=== PATIENT | male | born 1945 | race Caucasian/White ===

== ENCOUNTER 2016-05-28 09:48 | Inpatient (IN) | payer OTHER, MEDICARE ==
[~2016-05-28] VITALS: Ht 213.4 cm; Wt 158.5 kg
[~2016-05-28 09:48] MED LIST: DOCU1CAP39 PO; FERR324T4 PO; LISI20 PO; METH10TA PO; NEUR600T PO; OXYC1SOL5 PO; WARF1TAB PO; WARF7.5T4 PO; ZOCO40TA PO
[2016-05-28 10:17] LABS: AUTOMATED NEUTROPHIL # 9.5 TH/MM3 (1.8-7.7); BASOPHIL % 0.2 % (0.0-2.0); EOSINOPHIL % 0.3 % (0.0-4.0); HEMATOCRIT 24.8 % (39.0-51.0); HEMO FLAGS DIFF FINAL; LYMPH % 7.5 % (9.0-44.0); LYMPHOCYTE # 0.9 TH/MM3 (1.0-4.8); MEAN CELL VOLUME 77.4 FL (80.0-100.0); MEAN CORPUSCULAR HEMOGLOBIN 25.4 PG (27.0-34.0); MEAN CORPUSCULAR HGB CONC 32.8 % (32.0-36.0); PLATELET COUNT 264 TH/MM3 (150-450); RED CELL DISTRIBUTION WIDTH 17.8 % (11.6-17.2); WHITE BLOOD COUNT 11.6 TH/MM3 (4.0-11.0)
[2016-05-28 10:31] LABS: BICARBONATE 32.2 MEQ/L (21.0-32.0); POTASSIUM 4.1 MEQ/L (3.5-5.1)
[2016-05-28] MEDS ORDERED: VANCOMYCIN INJ 1,000 MG in SODIUM CHLOR 0.9% 250 ML INJ 250 ML IV STA (10:54)
[2016-05-28] MEDS ORDERED: PIPERACIL-TAZO 4.5 GM PREMIX 100 ML IV STA (10:54)
--- NOTE | 2016-05-28 11:04 | PD ---
HPI Chief Complaint: Skin Problem Time Seen by Provider: 09:57 Travel History International Travel<30 days: No Contact w/Intl Traveler<30days: No History of Present Illness HPI Patient is a morbidly obese 70-year-old male with history of HTN, HLD, DM, A. fib here with complaint of skin problem. Patient is a poor historian. From what I can gather he has chronic venous stasis changes, chronic wounds to the legs that have been increasing over the course the last several weeks despite home health wound management. Patient has had increasing pain in the right lower extremity particularly, describes this as throbbing. He is unable to tell me how much larger the leg is then it is at baseline. Denies any numbness , tingling. He notes weakness in the right leg, stating that "it hurt so bad he can't move it". No fevers or chills. PFSH Past Medical History Hx Anticoagulant Therapy: Yes (COUMADIN) Arthritis: Yes Atrial Fibrillation: Yes Heart Rhythm Problems: Yes (A-FIB) Cancer: No Cardiovascular Problems: Yes High Cholesterol: Yes Diabetes: Yes Diminished Hearing: Yes (LEFT EAR DIMINISHED) Endocrine: Yes Gastrointestinal Disorders: Yes Genitourinary: No Hiatal Hernia: Yes Hypertension: Yes Immune Disorder: No Musculoskeletal: Yes Neurologic: Yes Psychiatric: No Reproductive: No Respiratory: Yes (ACUTE SINUSITIS) Past Surgical History Abdominal Surgery: Yes (7 HERNIA REPAIR) Other Surgery: Yes (R LEG DEBRIEDMENT X5) Social History Alcohol Use: No Tobacco Use: No Substance Use: No Allergies-Medications (Allergen,Severity, Reaction): Coded Allergies: *MDRO Multi-Drug Resistant Organism (Verified Adverse Reaction, Unknown, ) MRSA (leg wound) - 06/2015; MRSA (foot) - 08/2015, 10/2015 Tetracycline (Verified Adverse Reaction, Unknown, 11/21/15) THRUSH Reported Meds & Prescriptions Reported Meds & Active Scripts Active Gabapentin 600 Mg Tab 600 Mg PO TID 30 Days Prinivil 20 mg (Lisinopril) 20 Mg Tab 20 Mg PO DAILY 30 Days Oxycodone/Acetaminophen 5 mg/325 mg 5 mg/325 mg Tab 1 Tab PO Q6H PRN Methadone Hcl (Methadone HCl) 10 Mg Tab 10 Mg PO Q12HR Colace 100 Mg Cap (Docusate Sodium) 100 Mg Cap 100 Mg PO BID Ferrous Sulfate 325 Mg Tab 325 Mg PO BID 30 Days Reported Warfarin Sodium 7.5 mg (Warfarin Sodium) 7.5 Mg Tab 7.5 Mg PO SUTUWEFRSA Warfarin Sodium 10 mg (Warfarin Sodium) 10 Mg Tab 10 Mg PO MOTH Zocor 40 mg (Simvastatin) 40 Mg Tab 40 Mg PO HS Review of Systems ROS Limitations: Poor Historian Except as stated in HPI: all other systems reviewed are Neg Physical Exam Exam Limitations: Poor Historian Narrative GENERAL: Super morbidly obese elderly male appearing older than stated age in no acute distress SKIN: Warm and dry. HEAD: Normocephalic. EYES: No scleral icterus. No injection or drainage. ENT: Mucous membranes pink and moist. NECK: Supple CARDIOVASCULAR: Regular rate and rhythm. Systolic murmur RESPIRATORY: No accessory muscle use. Clear to auscultation. Breath sounds equal bilaterally. GASTROINTESTINAL: Morbidly obese. Soft MUSCULOSKELETAL: Chronic venous stasis changes to the bilateral lower extremities. Right lower extremity has an almost elephantiasis appearance. He has the following wounds: Right leg a 1 x 1 cm on the arch of the sole of the foot. 4 x 1.5 cm anterior medial ankle. 1 x 1 cm on the second toe. 10 x 4 cm anterior medial collazo. 14 x 7 cm lateral lower leg ulcers. Left leg 5 x 3 cm top of the foot, 3 x 3 cm great toe, 12 x 4 cm anterior medial collazo, 8 x 3 cm lateral lower leg, 3 x 3 cm medial lower leg ulcers. NEUROLOGICAL: Awake and alert. Normal speech. PSYCHIATRIC: Appropriate mood and affect; insight and judgment normal. Data Data Last Documented VS Vital Signs Date Time Temp Pulse Resp B/P Pulse Ox O2 Delivery O2 Flow Rate FiO2 05/28/16 11:54 98.5 20 97 Nasal Cannula 05/28/16 11:11 84 134/63 Orders Electrocardiogram (05/28/16 09:58) Complete Blood Count With Diff (05/28/16 09:58) Lactic Acid Sepsis Protocol (05/28/16 09:58) Blood Culture (05/28/16 09:58) Wound Culture And Gram Stain (05/28/16 09:58) Ecg Monitoring (05/28/16 09:58) Iv Access Insert/Monitor (05/28/16 09:58) Oximetry (05/28/16 09:58) Basic Metabolic Panel (Bmp) (05/28/16 09:58) Piperacil-Tazo 4.5 Gm Premix (Zosyn 4.5 (05/28/16 10:54) Vancomycin Inj (Vancomycin Inj) (05/28/16 10:54) Urinalysis - C+S If Indicated (05/28/16 10:55) Us Leg Venous Doppler Bilat (05/28/16 ) Mri Lower Leg W/Wo Contrast (05/28/16 ) Mri Foot W&W/O Contrast (05/28/16 ) Admit Order (Ed Use Only) (05/28/16 12:08) Labs Laboratory Tests Test 05/28/16 05/28/16 09:40 10:40 White Blood Count 11.6 TH/MM3 Red Blood Count 3.20 MIL/MM3 Hemoglobin 8.1 GM/DL Hematocrit 24.8 % Mean Corpuscular Volume 77.4 FL Mean Corpuscular Hemoglobin 25.4 PG Mean Corpuscular Hemoglobin 32.8 % Concent Red Cell Distribution Width 17.8 % Platelet Count 264 TH/MM3 Mean Platelet Volume 7.0 FL Neutrophils (%) (Auto) 82.0 % Lymphocytes (%) (Auto) 7.5 % Monocytes (%) (Auto) 10.0 % Eosinophils (%) (Auto) 0.3 % Basophils (%) (Auto) 0.2 % Neutrophils # (Auto) 9.5 TH/MM3 Lymphocytes # (Auto) 0.9 TH/MM3 Monocytes # (Auto) 1.2 TH/MM3 Eosinophils # (Auto) 0.0 TH/MM3 Basophils # (Auto) 0.0 TH/MM3 CBC Comment DIFF FINAL Differential Comment Sodium Level 138 MEQ/L Potassium Level 4.1 MEQ/L Chloride Level 101 MEQ/L Carbon Dioxide Level 32.2 MEQ/L Anion Gap 5 MEQ/L Blood Urea Nitrogen 27 MG/DL Creatinine 1.33 MG/DL Estimat Glomerular Filtration 53 ML/MIN Rate Random Glucose 78 MG/DL Calcium Level 8.1 MG/DL Lactic Acid Level 0.7 mmol/L [facility] Medical Decision Making Medical Screen Exam Complete: Yes Emergency Medical Condition: Yes Medical Record Reviewed: Yes Differential Diagnosis 70-year-old male with history of HTN, HLD, DM, A. fib, chronic lymphangitis and venous stasis here with increasing pain, swelling to the right lower extremity. Patient has significant ulcers bilaterally. Differential includes cellulitis , diabetic ulcers, osteomyelitis, DVT, sepsis. Exam is not consistent with necrotizing fasciitis. Narrative Course Patient placed on monitor, IV established and blood obtained. CBC, BMP, lactate , blood cultures, wound cultures, urinalysis were obtained and notable for WBC 11.6, hemoglobin 8.1, BUN 27, creatinine 1.33. Bicarbonate 32.2 likely obesity hypoventilation. Urinalysis remains pending at the time this dictation. Patient was empirically covered with vancomycin, Zosyn. MRI of the right tib- fib, foot ordered to evaluate for osteomyelitis. Duplex ultrasounds of the bilateral lower extremity ordered to evaluate for DVT. Patient will be admitted for further management of cellulitis, rule out osteo-, rule out DVT. Critical Care Narrative Aggregate critical care time was 55 minutes. Time to perform other separately billable procedures was not included in the critical care time. My time did not include minutes spent treating any other patients simultaneously or on activities that did not directly contribute to the patient's treatment. The services I provided to this patient were to treat and/or prevent clinically significant deterioration that could result in: Cardiopulmonary decompensation, , disability, loss of limb I provided critical care services requiring my management, as noted below: Chart data review, documentation time, medication orders and management, vital sign assessments/reviewing monitor data, ordering and reviewing lab tests, ordering and interpreting/reviewing x-rays and diagnostic studies, care of the patient and discussion of the patient with the admitting physicians. Diagnosis Primary Impression: Cellulitis of both lower extremities Additional Impressions: Chronic lymphangitis Diabetic foot ulcers Qualified Code: E11.621 - Diabetic ulcer of both feet associated with type 2 diabetes mellitus Type 2 diabetes mellitus with peripheral neuropathy Wheelchair bound Diabetic ulcer of both feet associated with diabetes mellitus due to underlying condition Hypertension Qualified Code: I10 - Essential hypertension Hyperlipidemia Qualified Code: E78.5 - Hyperlipidemia, unspecified hyperlipidemia type Admitting Information Admitting Physician Requests: Admit Cathy Padron MD May 28, 2016 11:04
[2016-05-28 11:11] VITALS: BP 134/63; PULSE 84; RESP 24; TEMP 98.9; O2SAT 98
[2016-05-28 11:54] VITALS: RESP 20; TEMP 98.5; O2SAT 97
[2016-05-28 13:11] LABS: FERRITIN 164 NG/ML (26-388); TRANSFERRIN IRON PROFILE 126 MG/DL (200-360)
--- NOTE | 2016-05-28 13:12 | RADRPT ---
EXAM DATE/TIME: 05/28/2016 12:24 [facility] COMPARISON: US LEG BILATERAL VENOUS DOPPLER, December 03, 2014, 16:32. INDICATIONS : Bilateral leg swelling. MEDICAL HISTORY : Hypercholesterolemia. Hypertension. Hernia. MRSA. Afib. Diabetic. Chronic leg wounds. SURGICAL HISTORY : Hernia repair. Right big toe amputated. Right finger amputated. Right leg debridement. ENCOUNTER: Initial ACUITY: 2 weeks PAIN SCORE: 8/10 LOCATION: Bilateral leg. TECHNIQUE: Venous ultrasound of the left and right leg was performed from the inguinal ligament to the proximal calf. Real-time, color Doppler and spectral tracing, compression and augmentation techniques were us ed. FINDINGS: RIGHT LEG: Exam is limited because of pain. There is normal compressibility of the deep venous system from the inguinal region to the proximal calf. No echogenic clot is seen in the lumen of the common femoral, femoral, popliteal, and posterior tibial veins. There is a normal response of the venous system to p roximal and distal augmentation and respiration. LEFT LEG: There is normal compressibility of the deep venous system from the inguinal region to the proximal ca lf. No echogenic clot is seen in the lumen of the common femoral, femoral, popliteal, and posterior tibial veins. There is a normal response of the venous system to proximal and distal augmentation an d respiration. CONCLUSION: Negative for deep venous thrombosis. Dez Bell MD FACR on May 28, 2016 at 13:01 Board Certified Radiologist. This report was verified electronically.
[2016-05-28 13:55] LABS: BLOOD, URINE SMALL (NEG); GLUCOSE,URINE NEG (NEG); KETONE, URINE NEG (NEG); NITRITE,URINE NEG (NEG); PH, URINE 6.5 (5.0-8.5); SQUAMOUS EPITHELIAL CELL URINE <1 /hpf (0-5); URINE COLOR YELLOW (YELLW/STRAW)
[2016-05-28 14:01] LABS: COMMENT (UR) CULT NOT INDICATED; CULTURE IF INDICATED CULT NOT INDICATED
[2016-05-28] MEDS: SODIUM CHLOR 0.9% 1000 ML INJ 1,000 ML IV SCH (14:03)
--- NOTE | 2016-05-28 14:15 | HHI.HP ---
[facility] Service [facility] Primary Care Physician [facility] Admission Diagnosis RLE cellulitis, diabetic ulcers, r/o osteo, r/o DVT Diagnoses: Chief Complaint: right lower extremity pain Travel History International Travel<30 Days: No Contact w/Intl Traveler <30 Da: No History of Present Illness Patient is a 70 year ill 70-year-old male who lives by himself patient states he is still up and ambulatory gets around for long distance with a mobility scooter and up ambulatory with a cane. Patient states he was doing well until yesterday night complains of progressive pain on the right lower extremity- from ankle up. . He states that yesterday afternoon he was working on his flower garden when he started having leg pain, unable to bear weight and described this pain as cramp initially on the right lower extremity. He call his enxt door neighbor and 911 was called and brought him here for further evaluation. He denies any fever or chills denies falling. Patient with history of chronic on and off cellulitis and non healing wounds/ ulcers on both legs. He is followed by a home health wound care nurse from [facility] and was actually seen yesterday. Right now patient complains of severe pain - even with light touch of the foot, ankle and leg. No pain when leg is kept still. He is able to move his left lower extremitiy with no limitation and pain. Patient is now admitted for further evaluation and management. Review of Systems Constitutional: DENIES: Diaphoretic episodes, Fatigue, Fever, Weight gain, Weight loss, Chills, Dizziness, Change in appetite, Night Sweats Endocrine: DENIES: Heat/cold intolerance, Polydipsia, Polyuria, Polyphagia Eyes: DENIES: Blurred vision, Diplopia, Eye inflammation, Eye pain, Vision loss , Photosensitivity, Double Vision Ears, nose, mouth, throat: COMPLAINS OF: Hearing loss (Baseline heart of hearing) Respiratory: DENIES: Apneas, Cough, Snoring, Wheezing, Hemoptysis, Sputum production, Shortness of breath Cardiovascular: COMPLAINS OF: Lower Extremity Edema (chronic), DENIES: Chest pain, Palpitations, Syncope, Dyspnea on Exertion, PND, Orthopnea, Claudication Gastrointestinal: DENIES: Abdominal pain, Black stools, Bloody stools, Constipation, Diarrhea, Nausea, Vomiting, Difficulty Swallowing, Anorexia Genitourinary: DENIES: Sexual dysfunction, Urinary frequency, Urinary incontinence, Urgency, Hematuria, Dysuria, Nocturia, Penile Discharge, Testicular Pain, Testicular Swelling Musculoskeletal: COMPLAINS OF: Joint pain (reason for admission foot) Integumentary: DENIES: Abnormal pigmentation, Nail changes, Pruritus, Rash Hematologic/lymphatic: DENIES: Bruising, Lymphadenopathy Immunologic/allergic: DENIES: Eczema, Urticaria Neurologic: COMPLAINS OF: Poor Balance (limited ambulation due to chronic leg swelling and pain) Psychiatric: DENIES: Anxiety, Confusion, Mood changes, Depression, Hallucinations, Agitation, Suicidal Ideation, Homicidal Ideation, Delusions Past Family Social History Past Medical History Diabetes type 2 insulin-requiring Diabetic neuropathy/chronic pain Hypertension Anemia History of atrial fibrillation History of hyperlipidemia Past Surgical History History of right big toe amputation he doesn't recall any major surgeries. Reported Medications Gabapentin 600 mg 3 times a day Prinivil 20 mg daily Percocet 5/325 mg every 6 hours when necessary for pain Methadone 5 mg tid Colace 100 mg 3 times a day Ferrous sulfate 325 twice a day Coumadin 7.5 Saturday and Saturday Coumadin 10 mg every Saturday and Zocor 40 mg at bedtime Allergies: Coded Allergies: *MDRO Multi-Drug Resistant Organism (Verified Adverse Reaction, Unknown, ) MRSA (leg wound) - 06/2015, 05/28/16; MRSA (foot) - 08/2015,10/2015; MRSA (blood)-05/28/16 Tetracycline (Verified Adverse Reaction, Unknown, 11/21/15) THRUSH Family History Noncontributory Social History Denies smoking or chronic alcohol use Physical Exam Vital Signs Vital Signs Date Time Temp Pulse Resp B/P Pulse Ox O2 Delivery O2 Flow Rate FiO2 05/28/16 11:54 98.5 20 97 Nasal Cannula 05/28/16 11:11 98.9 84 24 134/63 98 Physical Exam GENERAL: Obese, in no apparent distress.No rashes, ecchymoses or lesions. C HEAD: Atraumatic. Normocephalic. No temporal or scalp tenderness. EYES: Pupils equal round and reactive. Extraocular motions intact. No scleral icterus. No injection or drainage. ENT: Nose without bleeding Throat without erythema, tonsillar hypertrophy or exudate.Airway patent. NECK: Trachea midline. No JVD or lymphadenopathy. Supple, nontender, no meningeal signs. CARDIOVASCULAR: Regular rate and rhythm without murmurs, gallops, or rubs. RESPIRATORY: Clear to auscultation. Breath sounds equal bilaterally. No wheezes , rales, or rhonchi. GASTROINTESTINAL: Abdomen soft, non-tender, flabby. No guarding. MUSCULOSKELETAL: Right lower extremity S2 is externally rotated and shorter. Positive swelling and erythema of the right lower extremity extending to the ankle and entire foot Left lower extremity with good range of motion + pitting edema SKIN : Specifically of the both lower extremities wounds as follows Right lower extremity with following wounds 1 cm x 1 cm open wound on the bottom of right foot on the arch. 4 cm x 1.5 cm open wound on the anterior ankle medial aspect. 1 cm x 1 cm wound on the second toe 10 cm x 4 cm open wound on the anterior medial aspect of the lower leg. 14 cm x 7 cm open wound on the lateral aspect of the lower leg. Left lower extremity with the following wounds 5 cm x 3 cm at the top of the foot 3 cm x 3 cm wound on the great toe 5 cm x 4 cm on the anterior medial lower leg 8 cm x 3 cm on the lateral aspect of the lower leg 3 cm x 3 cm on the medial aspect of the lower leg NEUROLOGICAL: Awake and alert. Cranial nerves II through XII intact. Right lower extremity externally rotated with very limited range of motion limited by pain with even minimal touch or movement. Other extremities range of motion within normal. Laboratory Laboratory Tests Test 05/28/16 05/28/16 09:40 10:40 White Blood Count 11.6 Red Blood Count 3.20 Hemoglobin 8.1 Hematocrit 24.8 Mean Corpuscular Volume 77.4 Mean Corpuscular Hemoglobin 25.4 Mean Corpuscular Hemoglobin 32.8 Concent Red Cell Distribution Width 17.8 Platelet Count 264 Mean Platelet Volume 7.0 Neutrophils (%) (Auto) 82.0 Lymphocytes (%) (Auto) 7.5 Monocytes (%) (Auto) 10.0 Eosinophils (%) (Auto) 0.3 Basophils (%) (Auto) 0.2 Neutrophils # (Auto) 9.5 Lymphocytes # (Auto) 0.9 Monocytes # (Auto) 1.2 Eosinophils # (Auto) 0.0 Basophils # (Auto) 0.0 CBC Comment DIFF FINAL Differential Comment Erythrocyte Sedimentation Rate GREATER THAN 140 Sodium Level 138 Potassium Level 4.1 Chloride Level 101 Carbon Dioxide Level 32.2 Anion Gap 5 Blood Urea Nitrogen 27 Creatinine 1.33 Estimat Glomerular Filtration 53 Rate Random Glucose 78 Calcium Level 8.1 Iron Level 13 Total Iron Binding Capacity 176 Percent Iron Saturation 7.4 Ferritin 164 C-Reactive Protein 10.00 Lactic Acid Level 0.7 Date/Time Procedure Status Source Growth 05/28/16 10:45 Gram Stain Received Wound Leg Pending 05/28/16 10:45 Wound Culture Received Wound Leg Pending 05/28/16 10:40 Aerobic Blood Culture Received Blood Peripheral Pending 05/28/16 10:40 Anaerobic Blood Culture Received Blood Peripheral Pending Result Diagram: 05/28/16 0940 05/28/16 0940 Imaging Last Impressions Lower Extremity Ultrasound 05/28/16 0000 Signed Impressions: Service Date/Time: Saturday, May 28, 2016 12:24 - CONCLUSION: Negative for deep venous thrombosis. Dez Bell MD FACR Assessment and Plan Assessment and Plan 70-year-old male presenting with Severe Extensive Cellulitis of both LE - Right> Left with chronic non healing ulcers with underlying chronic lymphedema Severe right lower extremity pain need rule out fracture as on exam right lower extremity is externally shorter and slightly externally rotated MRI of the foot, right lower extremity/leg ordered. will add hip to exam Doppler ultrasound of the right lower extremity has been ordered.. Review of old admission with history of MRSA/Escherichia coli on wound cultures Patient started on Zosyn We'll consult and get the infectious disease service involved early for recommendation We will consult our wound care physician on service for recommendation acute kidney injury. We'll start patient on gentle hydration with normal saline Follow renal functions. history of chronic pain/neuropathy. Continue on methadone 5 mg tid Continue on Percocet 5/325 mg we'll increase to every 4 when necessary Continue on gabapentin 600 mg 3 times a day continue on his bowel regimen history of chronic atrial fibrillation, hyperlipidemia, hypertension check INR. EKG Continue Zocor 40 mg at bedtime , Lisinopril 10 mg daily anemia of chronic disease H&H is near baseline we'll continue to monitor Case discussed with patient Discussed Condition With Patient Physician Certification 2 Midnight Certification Type: Admission for Inpatient Services Order for Inpatient Services The services are ordered in accordance with Medicare regulations or non- Medicare payer requirements, as applicable. In the case of services not specified as inpatient-only, they are appropriately provided as inpatient services in accordance with the 2-midnight benchmark. Estimated LOS (days): 3 days is the estimated time the patient will need to remain in the hospital, assuming treatment plan goals are met and no additional complications. Post-Hospital Plan: Not yet determined Dany Jean MD May 28, 2016 14:15
[2016-05-28 14:16] LABS: ALKALINE PHOSPHATASE 69 U/L (45-117); ALT (GPT) 10 U/L (12-78); AST (GOT) 15 U/L (15-37); INDIRECT BILIRUBIN 0.4 MG/DL (0.0-0.8); TOTAL BILIRUBIN ADULT 0.5 MG/DL (0.2-1.0)
[2016-05-28] MEDS ORDERED: COUM10TA PO (14:52)
[2016-05-28] MEDS ORDERED: GABA600T PO (14:52)
[2016-05-28] MEDS ORDERED: ZOCO40TA PO (14:52)
[2016-05-28] MEDS ORDERED: COUM7.5T PO (14:52)
[2016-05-28] MEDS ORDERED: METH5TAB PO (14:52)
[2016-05-28] MEDS ORDERED: LISI-515 PO (14:52)
[2016-05-28] MEDS ORDERED: WARFARIN SOD 10 MG TAB PO SCH (15:00)
[2016-05-28] MEDS ORDERED: PILL SPLITTER OTHER PRN (15:45)
[2016-05-28 16:00] VITALS: BP 150/78; PULSE 84; RESP 20; TEMP 99; O2SAT 96
[2016-05-28] MEDS ORDERED: HYDROmorphone HCL PF 1 MG/ML VIAL IV PUSH PRN (17:15)
[2016-05-28] MEDS: GABAPENTIN 300 MG CAP PO SCH (17:38)
[2016-05-28] MEDS: HYDROmorphone HCL PF 1 MG/ML VIAL IV PUSH PRN ×2 (17:39→21:48)
[2016-05-28] MEDS ORDERED: GABAPENTIN 600 MG PO SCH (18:00)
[2016-05-28] MEDS: METHADONE HCL 10 MG TAB PO SCH (18:41)
[2016-05-28 20:00] VITALS: BP 138/78; PULSE 84; RESP 20; TEMP 98.7; O2SAT 97
[2016-05-28] MEDS: PIPERACIL-TAZO 4.5 GM PREMIX 100 ML IV SCH (20:00)
[2016-05-28] MEDS ORDERED: NON-FORMULARY DRUG (Simvastatin (Zocor) 40 MG) PO SCH (21:00)
[2016-05-28] MEDS ORDERED: METHADONE HCL 10 MG TAB PO SCH (21:00)
[2016-05-28] MEDS: DOCUSATE SODIUM 100 MG CAP PO SCH (21:47)
[2016-05-28] MEDS: FERROUS SULFATE 325 MG (65 MG ELEMENTAL IRON) TAB PO SCH (21:47)
[2016-05-28] MEDS: PRAVASTATIN SOD 80 MG TAB PO SCH (21:47)
[2016-05-28 22:44] LABS: INTERNATIONAL NORMALIZED RATIO 1.8 RATIO; PROTHROMBIN TIME - PATIENT 20.1 SEC (9.8-11.6)
[2016-05-28] MEDS ORDERED: WARFARIN SOD 10 MG TAB PO ONE (23:00)
[2016-05-28] MEDS ORDERED: DO NOT ADM ANY ANTICOAGULANT DRUGS XX PRN (23:00)
[2016-05-29] VITALS: BP 129/69; PULSE 92; RESP 20; TEMP 101.7; O2SAT 94
[2016-05-29] MEDS: PIPERACIL-TAZO 4.5 GM PREMIX 100 ML IV SCH ×4 (01:31→22:27)
[2016-05-29 04:00] VITALS: PULSE 80; RESP 20; TEMP 102.5; O2SAT 52
[2016-05-29] MEDS: SODIUM CHLOR 0.9% 1000 ML INJ 1,000 ML IV SCH ×2 (04:18→18:18)
[2016-05-29] MEDS: LISINOPRIL 20 MG TAB PO SCH (07:38)
[2016-05-29] MEDS: GABAPENTIN 300 MG CAP PO SCH ×3 (07:39→18:12)
[2016-05-29] MEDS: DOCUSATE SODIUM 100 MG CAP PO SCH ×2 (07:39→22:26)
[2016-05-29] MEDS: METHADONE HCL 10 MG TAB PO SCH ×3 (07:40→18:12)
[2016-05-29] MEDS: FERROUS SULFATE 325 MG (65 MG ELEMENTAL IRON) TAB PO SCH ×2 (07:40→22:26)
[2016-05-29 08:00] VITALS: BP_SYST 120; BP_SYST 93; BP_DIAS 41; BP_DIAS 53; PULSE 76; RESP 16; TEMP 99.6; O2SAT 94
--- NOTE | 2016-05-29 08:57 | MB ---
cc: SUZIE SINGLETON MD DATE OF CONSULTATION 05/28/[address] Jean REASON FOR CONSULTATION Severe cellulitis with chronic ulcer of the lower extremities. HISTORY OF PRESENT ILLNESS This is a 70-year-old white male who presented to the emergency department with pain in his lower extremities. He has home care nursing who visit him at home daily to care for his wounds. He reports that they noted increased swelling in the right foot and then he developed sudden worsening pain in the right foot as well. The patient tells me that he was in his garden planting seeds when he got into his scooter and tried to get back into his home, he noted the pain in his leg approximately one day ago. He is a poor historian. He was evaluated in the emergency department and admitted to the hospital. His white count is mildly elevated at 11.6. Sedimentation rate is greater than 140. An attempt at an MRI was not successful because of the patient complaining of pain. An ultrasound of the right lower extremity is negative for deep venous thrombosis. He has been started on intravenous antibiotics and blood cultures have been taken. A culture from the wound of the leg has been obtained. The patient has wrappings on both legs and he has chronic ulcerations on both legs. The right leg is extremely swollen and all of the toes markedly swollen as well. He has chronic deformity at the right foot and the great toe on the left foot is also markedly swollen as well. There is erythema of both legs. The patient denies chills, nausea, vomiting, shortness of breath, headache. PAST MEDICAL HISTORY 1. Diabetes mellitus insulin requiring 2. Diabetic neuropathy 3. Hypertension 4. Atrial fibrillation 5. Hyperlipidemia 6. Anemia 7. History of right great toe amputation ALLERGIES TETRACYCLINE MEDICATIONS 1. Piperacillin/Tazobactam 2. Pravachol 3. Ferrous sulfate 4. Colace 5. Prinivil 6. Coumadin 7. Neurontin 8. Dolophine 9. The patient received dose of vancomycin today. SOCIAL HISTORY No tobacco, alcohol or illicit drugs. FAMILY HISTORY Noncontributory REVIEW OF SYSTEMS Significant for pain in the right lower extremity. The review of systems is otherwise negative on 10-point review. PHYSICAL EXAMINATION This is a moderately obese male who is in no acute distress. He does report discomfort from the pain in the right lower extremity which he states is now worse. VITAL SIGNS: Include a temperature 99.0, BP 150/78, respirations 20, heart rate 84. HEENT: Extraocular movements grossly intact, pupils reactive to light. No icterus. Oropharynx, multiple missing teeth both upper and lower jaw. The mucosa is moist. No visible lesions. NECK: Supple. No adenopathy. LUNGS: Clear to auscultation. HEART: A 2/6 systolic ejection murmur at the left upper sternal border. ABDOMEN: Bowel sounds present, soft, nontender. RECTAL: Not performed. EXTREMITIES: Both legs have swelling and chronic ulcerations and erythema. The right leg has increased size, but the patient is not clear on whether it is worse than baseline. The right is exquisitely tender on palpation. NEUROLOGIC: Nonfocal. SKIN: No rash site. PSYCH: The patient is calm and cooperative. LABORATORY DATA WBC 11.6, 82% neutrophils, hemoglobin 8.1, creatinine 1.33, BUN 27, estimated GFR 53. IMPRESSION 1. Bilateral lower extremity cellulitis, right greater than left. 2. Chronic venous stasis RECOMMENDATIONS 1. Continue piperacillin/Tazobactam 2. Monitor the wound culture 3. Monitor blood cultures 4. MRI when feasible. The patient states that his pain is severe and therefore he would like not to have the MRI at this time. Thank you for this consultation. His progress will be monitored and cultures will be followed and further recommendations will be made on followup if necessary. Suzie Singleton MD FD/MEE /7:57 PM /8:39 AM ABA
[2016-05-29] MEDS ORDERED: LISINOPRIL 20 MG TAB PO SCH (09:00)
[2016-05-29] MEDS: HYDROmorphone HCL PF 1 MG/ML VIAL IV PUSH PRN (09:31)
--- NOTE | 2016-05-29 09:48 | HHI.PR ---
Subjective Remarks patient finally agreed to go for MRI this am T max 102.5 this am 02 sat 94% complains of pain right leg lab called - blood cultures + Gram + cocci in pairs and clusters Objective Vitals Vital Signs Date Time Temp Pulse Resp B/P Pulse Ox O2 Delivery O2 Flow Rate FiO2 05/29/16 04:00 102.5 80 20 52 05/29/16 00:00 101.7 92 20 129/69 94 05/28/16 20:00 98.7 84 20 138/78 97 05/28/16 16:00 99.0 84 20 150/78 96 05/28/16 11:54 98.5 20 97 Nasal Cannula 05/28/16 11:11 98.9 84 24 134/63 98 I/O 05/28/16 05/28/16 05/28/16 05/29/16 05/29/16 05/29/16 07:00 15:00 23:00 07:00 15:00 23:00 Intake Total 968 ml 228 ml Output Total 300 ml 200 ml 200 ml Balance -300 ml 768 ml 28 ml Intake Oral 360 ml 120 ml IV Total 608 ml 108 ml Output Urine Total 300 ml 200 ml 200 ml # Voids 1 1 # Bowel Movements 1 0 Result Diagram: 05/28/16 0940 05/28/16 0940 Imaging Last Impressions Lower Extremity Ultrasound 05/28/16 0000 Signed Impressions: Service Date/Time: Saturday, May 28, 2016 12:24 - CONCLUSION: Negative for deep venous thrombosis. Dez Bell MD FACR Objective Remarks GENERAL: Obese, in no apparent distress.No rashes, ecchymoses or lesions. C HEAD: Atraumatic. Normocephalic. No temporal or scalp tenderness. EYES: Pupils equal round and reactive. Extraocular motions intact. No scleral icterus. No injection or drainage. ENT: Nose without bleeding Throat without erythema, tonsillar hypertrophy or exudate.Airway patent. NECK: Trachea midline. No JVD or lymphadenopathy. Supple, nontender, no meningeal signs. CARDIOVASCULAR: Regular rate and rhythm without murmurs, gallops, or rubs. RESPIRATORY: Clear to auscultation. Breath sounds equal bilaterally. No wheezes , rales, or rhonchi. GASTROINTESTINAL: Abdomen soft, non-tender, flabby. No guarding. MUSCULOSKELETAL: Right lower extremity S2 is externally rotated and shorter. Positive swelling and erythema of the right lower extremity extending to the ankle and entire foot Left lower extremity with good range of motion SKIN : Specifically of the both lower extremities wounds as follows Right lower extremity with following wounds 1 cm x 1 cm open wound on the bottom of right foot on the arch. 4 cm x 1.5 cm open wound on the anterior ankle medial aspect. 1 cm x 1 cm wound on the second toe 10 cm x 4 cm open wound on the anterior medial aspect of the lower leg. 14 cm x 7 cm open wound on the lateral aspect of the lower leg. Left lower extremity with the following wounds 5 cm x 3 cm at the top of the foot 3 cm x 3 cm wound on the great toe 5 cm x 4 cm on the anterior medial lower leg 8 cm x 3 cm on the lateral aspect of the lower leg 3 cm x 3 cm on the medial aspect of the lower leg NEUROLOGICAL: Awake and alert. Cranial nerves II through XII intact. Right lower extremity externally rotated with very limited range of motion limited by pain with even minimal touch or movement. Other extremities range of motion within normal. A/P Assessment and Plan 70-year-old male presenting with Gram + sepsis due to Severe Extensive Cellulitis of both LE - Right> Left with chronic non healing ulcers with underlying chronic lymphedema Severe right lower extremity pain need rule out fracture as on exam right lower extremity is externally rotated. MRI of the foot, right lower extremity/leg/hip pending Doppler ultrasound of the right lower extremity - negative for DVT Review of old admission with history of MRSA/Escherichia coli on wound cultures Patient started on Zosyn 05/28 Vancomycin started 05/[address] Staley seeing patient We will consult our wound care physician on service for recommendation IV Dilaudid prn for pain acute kidney injury. on gentle hydration with normal saline Follow renal functions.- recheck today history of chronic pain/neuropathy. Continue on methadone 5 mg tid Continue on Percocet 5/325 mg we'll increase to every 4 when necessary Continue on gabapentin 600 mg 3 times a day continue on his bowel regimen history of chronic atrial fibrillation, hyperlipidemia, hypertension check INR today. on coumadin Continue Zocor 40 mg at bedtime , Lisinopril 10 mg daily anemia of chronic disease H&H is near baseline we'll continue to monitor Dany Jean MD May 29, 2016 09:48
[2016-05-29] MEDS ORDERED: Vancomycin Consult Pharmacy 1 EA OTHER SCH (10:00)
[2016-05-29] MEDS ORDERED: GADODIAMIDE PF 287 MG/ML 10 ML VIAL (for RAD MRI) IV ONE (11:43)
[2016-05-29 12:00] VITALS: BP 112/53; PULSE 85; RESP 16; TEMP 98.6; O2SAT 97
[2016-05-29] MEDS: VANCOMYCIN INJ 2,000 MG in SODIUM CHLORID 0.9% 500 ML INJ 500 ML IV SCH (12:54)
--- NOTE | 2016-05-29 13:01 | PD.POD.CON ---
Patient Intake Chief Complaint 70-year-old diabetic male with chronic venous insufficiency and venous stasis ulcerations of both legs. He was seen and a wound center in [place] but since moving down here is been followed by outpatient wound care nurse through home health. He was admitted to the hospital because of pain and swelling of his legs. Consult Requested by Reason for Consult Treatment and follow-up of lower extremity wounds Primary Care Physician [facility] History of Present Illness 66-year-old diabetic male with chronic venous insufficiency and venous stasis ulcerations bilateral. Wounds are growing out MRSA. Patient admitted for sepsis Coded Allergies: *MDRO Multi-Drug Resistant Organism (Verified Adverse Reaction, Unknown, ) MRSA (leg wound) - 06/2015; MRSA (foot) - 08/2015, 10/2015 Tetracycline (Verified Adverse Reaction, Unknown, 11/21/15) THRUSH Preferred Language to Discuss: Syriac Barriers to Learning: None Teaching Method: Discussion Vital Signs Date Time Temp Pulse Resp B/P Pulse Ox O2 Delivery O2 Flow Rate FiO2 05/29/16 08:00 99.6 76 16 93/53 94 120/41 05/29/16 04:00 102.5 80 20 52 05/29/16 00:00 101.7 92 20 129/69 94 05/28/16 20:00 98.7 84 20 138/78 97 05/28/16 16:00 99.0 84 20 150/78 96 Pain scale used: 0-10 numeric scale Pain score: 4 Medications Current Medications Piperacillin Sod/ Tazobactam Sod 100 ml @ 200 mls/hr ONCE STAT IV Last administered on 05/28/16 14:01; Start 05/28/16 at 10:54; Stop 05/28/16 at 11:24 ; Status DC Vancomycin HCl 1000 mg/Sodium Chloride 250 ml @ 250 mls/hr ONCE STAT IV Last administered on 05/28/16 14:02; Start 05/28/16 at 10:54; Stop 05/28/16 at 12:05 ; Status DC Sodium Chloride 1,000 ml @ 70 mls/hr [id number] IV Last administered on 04:18; Start 05/28/16 at 14:00 Piperacillin Sod/ Tazobactam Sod (Zosyn 4.5 Gm Premix) 100 ml @ 200 mls/hr Q6H IV Last administered on 05/29/16 08:20; Start 05/28/16 at 20:00 Docusate Sodium (Colace) 100 mg BID PO Last administered on 05/29/16 07:39; Start 05/28/16 at 21:00 Lisinopril (Prinivil) 20 mg DAILY PO ; Start 05/29/16 at 09:00 Methadone HCl (Dolophine) 10 mg Q12HR PO ; Start 05/28/16 at 21:00; Stop at 21:00; Status DC Warfarin Sodium (Coumadin) 7.5 mg SuTuWeFrSa PO ; Start 05/29/16 at 14:30; Status UNV Warfarin Sodium (Coumadin) 10 mg STAT ONCE PO Last administered on 05/28/16 23:00; Start 05/28/16 at 23:00; Stop 05/28/16 at 23:01; Status DC Ferrous Sulfate (Ferrous Sulfate) 325 mg BID PO Last administered on 05/29/16 07:40; Start 05/28/16 at 21:00 Non-Formulary Medication 600 mg TID PO Neuropathy; Start 05/28/16 at 18:00; Status UNV Pravastatin Sodium (Pravachol) 80 mg HS PO Last administered on 05/28/16 21:47 ; Start 05/28/16 at 21:00 Gabapentin (Neurontin) 600 mg TID PO Last administered on 05/29/16 07:39; Start 05/28/16 at 18:00 Lisinopril (Prinivil) 20 mg DAILY PO ; Start 05/29/16 at 09:00; Status UNV Warfarin Sodium (Coumadin) 7.5 mg SuMoTuWeFrSa PO ; Start 05/29/16 at 16:00 Warfarin Sodium (Coumadin) 10 mg MOTH PO ; Start 05/28/16 at 15:00; Status UNV Non-Formulary Medication 40 mg HS PO CM; Start 05/28/16 at 21:00; Status UNV Methadone HCl (Dolophine) 5 mg TID PO Last administered on 05/29/16 07:40; Start 05/28/16 at 18:00 Miscellaneous (Pill Splitter) 1 ea UNSCH PRN OTHER SEE LABEL COMMENTS; Start at 15:45 Hydromorphone HCl (Dilaudid Pf Inj) 0.5 mg Q4H PRN IV PUSH PAIN SCALE 4 TO 10; Start 05/28/16 at 17:15; Stop 05/28/16 at 17:15; Status DC Hydromorphone HCl (Dilaudid Pf Inj) 0.25 mg Q4H PRN IV PUSH PAIN SCALE 4 TO 10 Last administered on 05/29/16 09:31; Start 05/28/16 at 17:15 Warfarin Sodium (Coumadin) 10 mg MoTh PO ; Start 05/31/16 at 16:00 Miscellaneous Information ALL NURSING DEPARTME... UNSCH PRN XX SEE LABEL COMMENTS; Start 05/28/16 at 23:00; Stop 05/29/16 at 22:59 Patient Medication Teaching 1 1 ONCE ONCE XX Last administered on 05/28/16 16 :00; Start 05/28/16 at 16:00; Stop 05/28/16 at 22:55; Status DC Pharmacy Profile Note (Vancomycin Consult Pharmacy) 0 ml @ 0 mls/hr UNSCH OTHER ; Start 05/29/16 at 10:00 Gadodiamide 30 ml 30 ml STK-MED ONCE IV Last administered on 05/29/16 11:43; Start 05/29/16 at 11:43; Stop 05/29/16 at 11:44; Status DC Vancomycin HCl/ Sodium Chloride (Vancomycin Inj/ NS 500 ml Inj) 520 ml @ 250 mls/hr Q12H IV ; Start 05/29/16 at 13:00 Past, Family & Social History Past Medical History PFSH Reviewed: Yes Endocrine: REPORTS HX OF: Diabetes mellitus Cardiovascular: REPORTS HX OF: Heart failure Genitourinary: REPORTS HX OF: Kidney disease Review of Systems Constitutional: COMPLAINS OF: Fever Cardiovascular: COMPLAINS OF: Swelling legs / ankles Exam-Podiatry Constitutional General appearance: comfortable Nutritional status: normal Orientation: alert and oriented x3 Dermatological Exam Skin Temp - Right: Within Normal Limits Skin Texture - Right: Within Normal Limits Skin Elasticity - Right: Within Normal Limits Skin Tugor - Right: Within Normal Limits Hair Growth - Right: Within Normal Limits Pigmentation - Right: Within Normal Limits Skin Temp - Left: Within Normal Limits Skin Texture - Left: Within Normal Limits Skin Elasticity - Left: Within Normal Limits Skin Tugor - Left: Within Normal Limits Hair Growth - Left: Within Normal Limits Pigmentation - Left: Within Normal Limits Present on right: Stasis Pigmentation Present on left: Stasis Pigmentation Ulcers: Location/Measurements Bilateral large venous stasis ulcerations of the legs and feet. Fibrin formation is moderate. Vascular/Lymphatic Exam R Dorsails Pedis: Palpable L Dorsails Pedis: Palpable R Posterior Tibial: Palpable L Posterior Tibial: Palpable Neurologic Exam Details Deferred Musculoskeletal Exam Details Amputation of hallux right foot Muscle Strength Dorsiflexion (Right): Normal Plantarflexion (Right): Normal Inversion (Right): Normal Eversion (Right): Normal Digital (Right): Normal Dorsiflexion (Left): Normal Plantarflexion (Left): Normal Inversion (Left): Normal Eversion (Left): Normal Digital (Left): Normal Foot Range of Motion Dorsiflexion (Right): Normal Plantarflexion (Right): Normal Inversion (Right): Normal Eversion (Right): Normal Digital (Right): Normal Dorsiflexion (Left): Normal Plantarflexion (Left): Normal Inversion (Left): Normal Eversion (Left): Normal Digital (Left): Normal Extremities Edema: Left lower extremity: 4+, pitting, foot, ankle, leg Right lower extremity: 4+, pitting, foot, ankle, leg Physical Exam Skin: FINDINGS: induration Hair: normal Head: normocephalic/atraumatic Eyes: PERRL Ears, nose, mouth, throat: no ear deformities Hearing, right ear: normal Hearing, left ear: normal Hearing test method: whispered voice Neck: FINDINGS: normal Chest appearance: normal Respiratory effort: FINDINGS: normal Abdomen: FINDINGS: normal appearance exam deferred: Yes Rectal exam deferred: Yes Edema: Left lower extremity: 4+, pitting, foot, ankle, leg Right lower extremity: 4+, pitting, foot, ankle, leg Cranial nerves II-XII intact: Yes Mental status: grossly normal Affect: normal Judgment: normal Lab and Radiology Results Laboratory Laboratory Tests Test 05/28/16 09:40 White Blood Count 11.6 TH/MM3 Red Blood Count 3.20 MIL/MM3 Hemoglobin 8.1 GM/DL Hematocrit 24.8 % Mean Corpuscular Volume 77.4 FL Mean Corpuscular Hemoglobin 25.4 PG Mean Corpuscular Hemoglobin 32.8 % Concent Red Cell Distribution Width 17.8 % Platelet Count 264 TH/MM3 Mean Platelet Volume 7.0 FL Neutrophils (%) (Auto) 82.0 % Lymphocytes (%) (Auto) 7.5 % Monocytes (%) (Auto) 10.0 % Eosinophils (%) (Auto) 0.3 % Basophils (%) (Auto) 0.2 % Neutrophils # (Auto) 9.5 TH/MM3 Lymphocytes # (Auto) 0.9 TH/MM3 Monocytes # (Auto) 1.2 TH/MM3 Eosinophils # (Auto) 0.0 TH/MM3 Basophils # (Auto) 0.0 TH/MM3 CBC Comment DIFF FINAL Differential Comment Erythrocyte Sedimentation Rate GREATER THAN 140 mm/hr Laboratory Tests Test 05/28/16 05/28/16 09:40 10:40 Sodium Level 138 MEQ/L Potassium Level 4.1 MEQ/L Chloride Level 101 MEQ/L Carbon Dioxide Level 32.2 MEQ/L Anion Gap 5 MEQ/L Blood Urea Nitrogen 27 MG/DL Creatinine 1.33 MG/DL Estimat Glomerular Filtration 53 ML/MIN Rate Random Glucose 78 MG/DL Calcium Level 8.1 MG/DL Iron Level 13 MCG/DL Total Iron Binding Capacity 176 MCG/DL Percent Iron Saturation 7.4 % Ferritin 164 NG/ML Total Bilirubin 0.5 MG/DL Direct Bilirubin 0.1 MG/DL Indirect Bilirubin 0.4 MG/DL Aspartate Amino Transf 15 U/L (AST/SGOT) Alanine Aminotransferase 10 U/L (ALT/SGPT) Alkaline Phosphatase 69 U/L C-Reactive Protein 10.00 MG/DL Total Protein 7.4 GM/DL Albumin 2.1 GM/DL Lactic Acid Level 0.7 mmol/L Microbiology Date/Time Procedure Status Source Growth 05/28/16 10:30 Aerobic Blood Culture - Preliminary Resulted Blood Peripheral Gram Positive Cocci 05/28/16 10:30 Anaerobic Blood Culture - Preliminary Resulted Gram Positive Cocci 05/28/16 10:40 Aerobic Blood Culture - Preliminary Resulted Blood Peripheral S. Aureus Mrsa 05/28/16 10:40 Anaerobic Blood Culture - Preliminary Resulted Gram Positive Cocci 05/28/16 10:45 Gram Stain - Final Resulted Wound Leg 05/28/16 10:45 Wound Culture - Preliminary Resulted S. Aureus Mrsa Radiology Last Impressions Lower Extremity Ultrasound 05/28/16 0000 Signed Impressions: Service Date/Time: Saturday, May 28, 2016 12:24 - CONCLUSION: Negative for deep venous thrombosis. Dez Bell MD FACR Assessment/Plan Problem List: (1) Sepsis Status: Acute (2) Venous stasis ulcer of left lower extremity Status: Chronic (3) Acute on chronic renal failure Status: Chronic (4) Venous stasis ulcers of both lower extremities Status: Chronic (5) Diabetic foot ulcers Status: Chronic (6) Diabetic ulcer of both feet associated with diabetes mellitus due to underlying condition Status: Chronic (7) Lymphedema of lower extremity Status: Chronic Additional Plans & Procedures Ordered Optifoam gentle AG dressings to all open wounds of the lower extremity to be changed every other day. Shawn bandages for compression. Ordered CTA to evaluate arterial status. Patient can follow-up with me in the wound center after discharge Problem Qualifiers (1) Diabetic foot ulcers: Qualified Code: E11.621 - Diabetic ulcer of both feet associated with type 2 diabetes mellitus (2) Lymphedema of lower extremity: Qualified Code: I89.0 - Lymphedema of both lower extremities Chuck Hernandez DPM May 29, 2016 13:01
[2016-05-29 13:24] LABS: HEMOGLOBIN A1a 1.4 %; HEMOGLOBIN A1b 1.7 %; HEMOGLOBIN Ao 84.4 %; HEMOGLOBIN LA1C 2.1 %; HEMOGLOBIN P3 5.7 %
[2016-05-29] MEDS ORDERED: WARFARIN SOD 7.5 MG TAB PO SCH ×2 (14:30→16:00)
--- NOTE | 2016-05-29 14:43 | EKG ---
Date Performed: 05/28/2016 Time Performed: 14:32:37 PTAGE: 70 years EKG: Sinus rhythm WITH OCCASIONAL VENTRICULAR PREMATURE COMPLEXES Compared to the previous tracing, atrial fibrillati on has resolved, PVCs are new BORDERLINE ECG PREVIOUS TRACING : 10/04/2015 13.04 DOCTOR: Sade Ritter Interpretating Date/Time 05/29/2016 14:42:14
--- NOTE | 2016-05-29 14:56 | RADRPT ---
EXAM DATE/TIME: 05/28/2016 00:00 [facility] COMPARISON: No previous studies available for comparison. INDICATIONS : RLE CELLULITIS/DIABETIC ULCERS TECHNIQUE: Five-station segmental examination of the lower extremities was performed. Pulsed-cuff waveform tracings and pressures were recorded. Ankle-brachial indices and toe-brachial indices were calculated. PRESSURES (mmHg): Brachial (arm): Left 97 Calf: Right 79 Left 106 Ankle: Right 85 Left 99 MARIOLA: Right 0.88 Left 1.02 PULSED CUFF WAVEFORMS: Demonstrate mildly diminished at the 2 on the right compared to the left.. CONCLUSION: Mild occlusive vascular disease involving the distal right lower extremity. No significant occlusive disease of the left lower extremity. Natalio Chávez MD on May 29, 2016 at 14:54 Board Certified Radiologist. This report was verified electronically.
[2016-05-29] MEDS ORDERED: IOHEXOL 350 MG/ML 10 ML VIAL (for RAD DIAG) IV ONE (15:04)
[2016-05-29 16:00] VITALS: BP 111/57; PULSE 75; RESP 16; TEMP 99.4; O2SAT 99
--- NOTE | 2016-05-29 16:05 | RADRPT ---
EXAM DATE/TIME: 05/29/2016 09:55 [facility] COMPARISON: No previous studies available for comparison. INDICATIONS: Edema. Drainage medial and lateral aspect of lower tib/fib. Chronic issue 10+years. Home health wou nd management. CONTRAST: 30 cc Omniscan (gadodiamide) IV MEDICAL HISTORY: Diabetes mellitus type 2. SURGICAL HISTORY: Inguinal hernia repair. Great toe right foot. ENCOUNTER: Subsequent ACUITY: 4-6 days PAIN SCORE: 6/10 LOCATION: Right leg TECHNIQUE: Multiplanar multisequence MRI examination of the right lower leg was performed with and without contr ast. FINDINGS: There is some soft tissue edema across the ankle both posteriorly, laterally and medially. The soleu s musculature is unremarkable. The gastrocnemius visualized unremarkable. There is some edema withi n the peroneal muscles and the anterior compartments. There is some broad periosteal reaction along the medial aspect of the tibia where the patient has nielson d a longstanding open wound. I do not see any significant bony edema that appears to be any acute ma rrow replacement or osteomyelitis. There does appear to be a few open wounds both laterally and medi ally. I do not see any deep abnormal collections. There is a joint effusion in the distal tibiotala r joint and there is some low grade bony edema in the calcaneus. The posterior medial tendons are in tact. CONCLUSION: Numerous open wounds with soft tissue defects particularly along the medial aspect of the tibial shaf t. The periosteum is markedly thickened in that region likely multiple chronic areas of infection. Does not have the typical appearance of an acute osteomyelitis, it appears much more chronic. There is very little skin overlying the bone. Low-grade edema throughout the musculature without any deep drainable fluid collections. Manuel Encarnacion MD on May 29, 2016 at 15:54 Board Certified Radiologist. This report was verified electronically.
--- NOTE | 2016-05-29 16:09 | RADRPT ---
EXAM DATE/TIME: 05/29/2016 09:55 [facility] COMPARISON: No previous studies available for comparison. INDICATIONS: Osteomyelitis. Great toe amputation. Chronic issue 10+years. Home health wound management. MRSA . CONTRAST: 30 cc Omniscan (gadodiamide) IV MEDICAL HISTORY: Diabetes mellitus type 2. SURGICAL HISTORY: Inguinal hernia repair. Great toe right foot. ENCOUNTER: Subsequent ACUITY: 2 weeks PAIN SCORE: 6/10 LOCATION: Right foot TECHNIQUE: Multiplanar, multisequence MRI examination was performed without contrast and after the intravenous a dministration of gadolinium. FINDINGS: The patient has had previous first toe amputation and the first metatarsal head has been resected. T here is significant edema remaining overlying the first toe including some fluid along its deep under surface. That area shows little if any contrast enhancement. The remaining first metatarsal bony nielson s normal signal. The second through fifth metatarsal bones have normal marrow signal. The phalange bones have normal signal. There is some bony edema in the calcaneus with some diffuse low grade enhancement in multiple areas. Patient has a hind foot valgus alignment. No obvious marrow placing process identified. There is a small joint effusion in the tibiotalar joint. CONCLUSION: Very impressive soft tissue swelling across the foot. I do not see any underlying marrow edema or ma rrow placement to suggest ongoing osteomyelitis. There is some impressive bony edema in the hind eric t with a marked hind foot valgus alignment. No open wound or obvious marrow placing process to sugge st osteomyelitis. Manuel Encarnacion MD on May 29, 2016 at 15:42 Board Certified Radiologist. This report was verified electronically.
--- NOTE | 2016-05-29 16:18 | RADRPT ---
EXAM DATE/TIME: 05/29/2016 14:49 [facility] COMPARISON: No previous studies available for comparison. INDICATIONS : Occlusion, right leg pain IV CONTRAST: 95 cc Omnipaque 350 (iohexol) IV RADIATION DOSE: 10.68 CTDIvol (mGy) MEDICAL HISTORY : Cardiovascular disease. Hypertension. Diabetes mellitus type 1. SURGICAL HISTORY : None. ENCOUNTER: Initial ACUITY: 2 days PAIN SCALE: 10/10 LOCATION: Right leg TECHNIQUE: Volumetric scanning was performed using a multi-row detector CT scanner. The data was post processed with a variety of visualization algorithms including full volume maximum intensity projection, multi -planar sliding thin slab reformation, curved planar reformation, and surface rendering techniques. Using automated exposure control and adjustment of the mA and/or kV according to patient size, radiat ion dose was kept as low as reasonably achievable to obtain optimal diagnostic quality images. FINDINGS: Calcified granuloma is present in the right lung. There is a contour abnormality and possible mass in segment 6. This measures 5 cm in diameter. The spleen is normal in size and free of focal defects. T he gallbladder and pancreas are unremarkable. No intrahepatic or extrahepatic ductal dilatation is se en. The adrenal glands and kidneys appear normal bilaterally. No hydronephrosis or mass lesions are i dentified. The aorta is normal in caliber. There is no evidence of aneurysm or dissection. The renal artery orig ins are patent bilaterally. The celiac axis and superior mesenteric artery origins are also patent. A n accessory left renal artery is present. Examination of the right lower extremity demonstrates no evidence of inflow stenosis. The common femo ral artery is patent. The superficial femoral artery is patent. The popliteal artery is patent. The i nfrapopliteal vessels cannot be evaluated secondary to the density of contrast. Examination of the left lower extremity demonstrates no evidence of inflow stenosis. The common femor al artery is patent. The superficial femoral artery is patent. The popliteal artery is patent. The in frapopliteal vessels cannot be evaluated secondary to the density of contrast. Note is made of diffuse subcutaneous edema involving both lower legs and feet distally. There is no e vidence of abscess. CONCLUSION: 1. No evidence of vascular disease to the level of the knees with nondiagnostic evaluation in the inf rapopliteal vessels. 2. Possible mass measuring 5 cm in segment 6 of the liver. MRI is recommended for further evaluation if clinically indicated. Jerome Watermna MD on May 29, 2016 at 16:09 Board Certified Radiologist. This report was verified electronically.
[2016-05-29 18:36] LABS: AUTOMATED NEUTROPHIL # 10.7 TH/MM3 (1.8-7.7); BASOPHIL % 0.3 % (0.0-2.0); EOSINOPHIL % 0.1 % (0.0-4.0); HEMATOCRIT 21.3 % (39.0-51.0); LYMPH % 8.2 % (9.0-44.0); LYMPHOCYTE # 1.1 TH/MM3 (1.0-4.8); MEAN CELL VOLUME 78.4 FL (80.0-100.0); MEAN CORPUSCULAR HEMOGLOBIN 25.4 PG (27.0-34.0); MEAN CORPUSCULAR HGB CONC 32.3 % (32.0-36.0); MONO % 10.1 % (0.0-8.0); NEUT % 81.3 % (16.0-70.0); PLATELET COUNT 200 TH/MM3 (150-450); RED BLOOD COUNT 2.72 MIL/MM3 (4.50-5.90); RED CELL DISTRIBUTION WIDTH 18.3 % (11.6-17.2); WHITE BLOOD COUNT 13.1 TH/MM3 (4.0-11.0)
[2016-05-29 18:41] LABS: HEMO FLAGS DIFF FINAL
[2016-05-29 18:45] LABS: INTERNATIONAL NORMALIZED RATIO 1.5 RATIO; PROTHROMBIN TIME - PATIENT 17.4 SEC (9.8-11.6)
--- NOTE | 2016-05-29 18:52 | HHI.IDPN ---
Note Infectious Disease Note Patient feels okay but appears drowsy. Receiving Methadone. Says he is okay. tremulous. Afebrile. Has low hemoglobin. Blood culture has MRSA. Foot wound culture has MRSA. Still has pain in the RLE but says it is better. PAST MEDICAL HISTORY 1. Diabetes mellitus insulin requiring 2. Diabetic neuropathy 3. Hypertension 4. Atrial fibrillation 5. Hyperlipidemia 6. Anemia 7. History of right great toe amputation ALLERGIES TETRACYCLINE MEDICATIONS 1. Piperacillin/Tazobactam 2. Vancomycin. OBJECTIVE: Vital Signs Date Time Temp Pulse Resp B/P Pulse Ox O2 Delivery O2 Flow Rate FiO2 05/29/16 16:00 99.4 75 16 111/57 99 Manual Cuff/Auscultation 05/29/16 12:00 98.6 85 16 112/53 97 05/29/16 08:00 99.6 76 16 93/53 94 120/41 05/29/16 04:00 102.5 80 20 52 05/29/16 00:00 101.7 92 20 129/69 94 05/28/16 20:00 98.7 84 20 138/78 97 05/28/16 05/28/16 05/29/16 15:00 23:00 07:00 Intake Total 968 ml 228 ml Output Total 300 ml 200 ml 200 ml Balance -300 ml 768 ml 28 ml Intake Oral 360 ml 120 ml IV Total 608 ml 108 ml Output Urine Total 300 ml 200 ml 200 ml # Voids 1 1 # Bowel Movements 1 0 Laboratory Tests Test 05/28/16 09:40 White Blood Count 11.6 TH/MM3 Red Blood Count 3.20 MIL/MM3 Hemoglobin 8.1 GM/DL Hematocrit 24.8 % Mean Corpuscular Volume 77.4 FL Mean Corpuscular Hemoglobin 25.4 PG Mean Corpuscular Hemoglobin 32.8 % Concent Red Cell Distribution Width 17.8 % Platelet Count 264 TH/MM3 Mean Platelet Volume 7.0 FL Neutrophils (%) (Auto) 82.0 % Lymphocytes (%) (Auto) 7.5 % Monocytes (%) (Auto) 10.0 % Eosinophils (%) (Auto) 0.3 % Basophils (%) (Auto) 0.2 % Neutrophils # (Auto) 9.5 TH/MM3 Lymphocytes # (Auto) 0.9 TH/MM3 Monocytes # (Auto) 1.2 TH/MM3 Eosinophils # (Auto) 0.0 TH/MM3 Basophils # (Auto) 0.0 TH/MM3 CBC Comment DIFF FINAL Differential Comment Erythrocyte Sedimentation Rate GREATER THAN 140 mm/hr Laboratory Tests Test 05/28/16 05/28/16 09:40 10:40 Sodium Level 138 MEQ/L Potassium Level 4.1 MEQ/L Chloride Level 101 MEQ/L Carbon Dioxide Level 32.2 MEQ/L Anion Gap 5 MEQ/L Blood Urea Nitrogen 27 MG/DL Creatinine 1.33 MG/DL Estimat Glomerular Filtration 53 ML/MIN Rate Random Glucose 78 MG/DL Calcium Level 8.1 MG/DL Iron Level 13 MCG/DL Total Iron Binding Capacity 176 MCG/DL Percent Iron Saturation 7.4 % Ferritin 164 NG/ML C-Reactive Protein 10.00 MG/DL Hemoglobin A1c 5.5 % Total Bilirubin 0.5 MG/DL Direct Bilirubin 0.1 MG/DL Indirect Bilirubin 0.4 MG/DL Aspartate Amino Transf 15 U/L (AST/SGOT) Alanine Aminotransferase 10 U/L (ALT/SGPT) Alkaline Phosphatase 69 U/L Total Protein 7.4 GM/DL Albumin 2.1 GM/DL Lactic Acid Level 0.7 mmol/L Microbiology Date/Time Procedure Status Source Growth 05/28/16 10:30 Aerobic Blood Culture - Preliminary Resulted Blood Peripheral Gram Positive Cocci 05/28/16 10:30 Anaerobic Blood Culture - Preliminary Resulted Gram Positive Cocci 05/28/16 10:40 Aerobic Blood Culture - Preliminary Resulted Blood Peripheral S. Aureus Mrsa 05/28/16 10:40 Anaerobic Blood Culture - Preliminary Resulted Gram Positive Cocci 05/28/16 10:45 Gram Stain - Final Resulted Wound Leg 05/28/16 10:45 Wound Culture - Preliminary Resulted S. Aureus Mrsa PHYSICAL EXAMINATION GENERAL: No acute distress. Lethargic. HEENT: No icterus. Oropharynx mucosa is moist. No visible lesions. NECK: Supple. No adenopathy. LUNGS: Clear to auscultation. HEART: A 2/6 systolic ejection murmur at the left upper sternal border. ABDOMEN: Bowel sounds present, nontender. EXTREMITIES: Both legs have swelling and chronic ulcerations and erythema. The right is exquisitely tender on palpation. NEUROLOGIC: Nonfocal. SKIN: No rash. PSYCH: The patient is calm and cooperative. IMPRESSION 1. Bilateral lower extremity cellulitis, right greater than left. 2. Chronic venous stasis / Diabetic ulcers - infected with MRSA. 3. Bacteremia - MRSA. Source being the leg infected wounds. RECOMMENDATIONS 1. Continue piperacillin/Tazobactam 2. Continue Vancomycin. 3. Follow MRI results. 4. Follow clinical status. Kevin Staley MD May 29, 2016 18:52
[2016-05-29 18:56] LABS: BICARBONATE 30.1 MEQ/L (21.0-32.0); POTASSIUM 3.6 MEQ/L (3.5-5.1)
[2016-05-29 20:00] VITALS: BP 116/57; PULSE 74; RESP 18; TEMP 98.6; O2SAT 100
[2016-05-29] MEDS: PRAVASTATIN SOD 80 MG TAB PO SCH (22:27)
[2016-05-30] VITALS (7 sets, daily range): BP systolic 109–143; BP diastolic 52–64; PULSE 65–80; RESP 16–20; TEMP 98–101.4; O2SAT 96–100
[2016-05-30] MEDS ORDERED: diphenhydrAMINE HCL 50 MG CAP PO ONE (00:15)
[2016-05-30] MEDS ORDERED: ACETAMINOPHEN 325 MG TAB PO ONE (00:15)
[2016-05-30] MEDS: VANCOMYCIN INJ 2,000 MG in SODIUM CHLORID 0.9% 500 ML INJ 500 ML IV SCH ×2 (00:59→12:02)
[2016-05-30] MEDS: PIPERACIL-TAZO 4.5 GM PREMIX 100 ML IV SCH ×4 (02:47→21:38)
[2016-05-30] MEDS: LISINOPRIL 20 MG TAB PO SCH (08:14)
[2016-05-30] MEDS: FERROUS SULFATE 325 MG (65 MG ELEMENTAL IRON) TAB PO SCH ×2 (08:14→21:38)
[2016-05-30] MEDS: GABAPENTIN 300 MG CAP PO SCH ×3 (08:14→17:14)
[2016-05-30] MEDS: DOCUSATE SODIUM 100 MG CAP PO SCH ×2 (08:15→21:00)
[2016-05-30] MEDS: SODIUM CHLOR 0.9% 1000 ML INJ 1,000 ML IV SCH ×2 (08:15→23:12)
[2016-05-30] MEDS: METHADONE HCL 10 MG TAB PO SCH ×3 (08:15→17:14)
[2016-05-30] MEDS: HYDROmorphone HCL PF 1 MG/ML VIAL IV PUSH PRN (08:16)
[2016-05-30 08:33] LABS: AUTOMATED NEUTROPHIL # 9.4 TH/MM3 (1.8-7.7); BASOPHIL # 0.1 TH/MM3 (0-0.2); BASOPHIL % 0.4 % (0.0-2.0); EOSINOPHIL # 0.1 TH/MM3 (0-0.4); EOSINOPHIL % 1.3 % (0.0-4.0); HEMATOCRIT 23.3 % (39.0-51.0); HEMO FLAGS DIFF FINAL; LYMPH % 8.2 % (9.0-44.0); MEAN CELL VOLUME 78.4 FL (80.0-100.0); MEAN CORPUSCULAR HEMOGLOBIN 25.4 PG (27.0-34.0); MEAN CORPUSCULAR HGB CONC 32.4 % (32.0-36.0); MONO % 10.2 % (0.0-8.0); NEUT % 79.9 % (16.0-70.0); PLATELET COUNT 208 TH/MM3 (150-450); RED BLOOD COUNT 2.96 MIL/MM3 (4.50-5.90); RED CELL DISTRIBUTION WIDTH 17.5 % (11.6-17.2); WHITE BLOOD COUNT 11.8 TH/MM3 (4.0-11.0)
[2016-05-30 08:51] LABS: INTERNATIONAL NORMALIZED RATIO 1.6 RATIO; PROTHROMBIN TIME - PATIENT 17.6 SEC (9.8-11.6)
[2016-05-30 09:01] LABS: BICARBONATE 27.6 MEQ/L (21.0-32.0); POTASSIUM 3.6 MEQ/L (3.5-5.1)
[2016-05-30] MEDS ORDERED: GADODIAMIDE PF 287 MG/ML 10 ML VIAL (for RAD MRI) IV ONE (09:46)
--- NOTE | 2016-05-30 10:05 | RADRPT ---
EXAM DATE/TIME: 05/30/2016 09:01 [place] COMPARISON: No previous studies available for comparison. INDICATIONS : Pain. Patient unable to ambulate. Rt leg externally rotated. CONTRAST: 30 cc Omniscan (gadodiamide) IV MEDICAL HISTORY : Diabetes mellitus type 2. Cellu;itis lower extremities. SURGICAL HISTORY : Inguinal hernia repair. Great toe right foot removed. ENCOUNTER: Subsequent ACUITY: 1 week PAIN SCORE: 5/10 LOCATION: Right hip TECHNIQUE: Multiplanar, multisequence MRI examination was performed without contrast and after the intravenous a dministration of gadolinium. FINDINGS: There is mild osteoarthritis at the hips bilaterally. There is no significant hip joint effusion. No evidence for fracture at the right hip. Postcontrast images reveal no abnormal enhancing lesions at t he hips or bony pelvis. Incidental note is made of some adenopathy along the external iliac lymph node chains and some mild i nguinal adenopathy bilaterally. Largest lymph node measures up to 3.1 x 2.6 cm in the right external iliac lymph node chain. No pelvic free fluid identified. CONCLUSION: 1. Mild osteoarthritis of the bilateral hips. No acute findings at the right hip joint. Specifically no fracture or joint effusion. 2. External iliac adenopathy and mild inguinal adenopathy as above. Salomón Morris MD on May 30, 2016 at 9:56 Board Certified Radiologist. This report was verified electronically.
--- NOTE | 2016-05-30 10:09 | HHI.PR ---
Subjective Remarks back from MRI pain much better patient states he is starving T max 101.4 Objective Vitals Vital Signs Date Time Temp Pulse Resp B/P Pulse Ox O2 Delivery O2 Flow Rate FiO2 05/30/16 04:00 98.5 65 19 125/57 98 05/30/16 02:58 100.6 66 18 118/57 96 05/30/16 00:00 101.4 74 20 128/57 98 05/29/16 20:00 98.6 74 18 116/57 100 05/29/16 16:00 99.4 75 16 111/57 99 Manual Cuff/Auscultation 05/29/16 12:00 98.6 85 16 112/53 97 I/O 05/29/16 05/29/16 05/29/16 05/30/16 05/30/16 05/30/16 07:00 15:00 23:00 07:00 15:00 23:00 Intake Total 228 ml 1497 ml 0 ml Output Total 200 ml 200 ml Balance 28 ml 1297 ml 0 ml Intake Oral 120 ml 922 ml 0 ml IV Total 108 ml 575 ml Output Urine Total 200 ml 200 ml Stool Total 0 ml # Voids 1 0 # Bowel Movements 0 Result Diagram: 05/30/16 0802 05/30/16 0802 Imaging Last Impressions Lower Extremity MRI 05/29/16 0000 Signed Impressions: Service Date/Time: Sunday, May 29, 2016 09:55 - CONCLUSION: Numerous open wounds with soft tissue defects particularly along the medial aspect of the tibial shaft. The periosteum is markedly thickened in that region likely multiple chronic areas of infection. Does not have the typical appearance of an acute osteomyelitis, it appears much more chronic. There is very little skin overlying the bone. Low-grade edema throughout the musculature without any deep drainable fluid collections. Manuel Encarnacion MD Foot MRI 05/29/16 0000 Signed Impressions: Service Date/Time: Sunday, May 29, 2016 09:55 - CONCLUSION: Very impressive soft tissue swelling across the foot. I do not see any underlying marrow edema or marrow placement to suggest ongoing osteomyelitis. There is some impressive bony edema in the hind foot with a marked hind foot valgus alignment. No open wound or obvious marrow placing process to suggest osteomyelitis. Manuel Encarnacion MD Aorta w/Runoff CTA 05/29/16 0000 Signed Impressions: Service Date/Time: Sunday, May 29, 2016 14:49 - CONCLUSION: 1. No evidence of vascular disease to the level of the knees with nondiagnostic evaluation in the infrapopliteal vessels. 2. Possible mass measuring 5 cm in segment 6 of the liver. MRI is recommended for further evaluation if clinically indicated. Jerome Waterman MD Lower Extremity Ultrasound 05/28/16 0000 Signed Impressions: Service Date/Time: Saturday, May 28, 2016 12:24 - CONCLUSION: Negative for deep venous thrombosis. Dez Bell MD FACR Objective Remarks GENERAL: Obese, in no apparent distress. HEAD: Atraumatic. Normocephalic. EYES: Pupils equal round and reactive. Extraocular motions intact. No scleral icterus. No injection or drainage. ENT: Nose without bleeding Throat without erythema, tonsillar hypertrophy or exudate.Airway patent. NECK: Trachea midline. No JVD or lymphadenopathy. Supple, nontender, no meningeal signs. CARDIOVASCULAR: Regular rate and rhythm without murmurs, gallops, or rubs. RESPIRATORY: Clear to auscultation. Breath sounds equal bilaterally. No wheezes , rales, or rhonchi. GASTROINTESTINAL: Abdomen soft, non-tender, flabby. No guarding. MUSCULOSKELETAL: Right lower extremity is externally rotated and shorter. Positive swelling and erythema of the right lower extremity extending to the ankle and entire foot limited ROM Left lower extremity with good range of motion SKIN :LE- both legs with dressing in place NEUROLOGICAL: Awake and alert. Cranial nerves II through XII intact. Right lower extremity externally rotated with very limited range of motion limited by pain with even minimal touch or movement. Other extremities range of motion within normal. A/P Assessment and Plan 70-year-old male presenting with Gram + sepsis due to Severe Extensive Cellulitis of both LE - Right> Left with chronic non healing ulcers with underlying chronic lymphedema Dr. Staley and Dr. Hernandez ff along with us CTA runoff- resulted IV Dilaudid prn for pain Severe right lower extremity/hip pain need rule out fracture as on exam right lower extremity is slightly externally rotated and shorter Doppler ultrasound of the right lower extremity - negative for DVT. MRI of the leg/foot- shows soft tissue swelling MRI of the right hip pending consider Orthopedics evaluation acute kidney injury.- renal functions trending down gradually on gentle hydration with normal saline recheck today history of chronic pain/neuropathy. Continue on methadone 5 mg tid Continue on Percocet 5/325 mg we'll increase to every 4 when necessary Continue on gabapentin 600 mg 3 times a day continue on his bowel regimen history of chronic atrial fibrillation- in SR, hyperlipidemia, hypertension on coumadin as OP- hold with acute drop in H and H- will wait for MRI of the hip to see if there is any hematoma Continue Zocor 40 mg at bedtime , Lisinopril 10 mg daily Acute anemia on top of anemia of chronic disease S/P 1 unit PRBC 05/29 ff H and H and H Dany Jean MD May 30, 2016 10:09
[2016-05-30] MEDS ORDERED: ACETAMINOPHEN 325 MG TAB PO PRN (10:15)
--- NOTE | 2016-05-30 12:33 | PD.POD ---
Subjective Podiatric Problems Bilateral lymphedema Lower extremity venous stasis ulcerations bilaterally Ulcerations growing MRSA. Pain scale used: 0-10 numeric scale Pain score: 4 Remarks Patient is a 70-year-old male with chronic lymphedema with bilateral venous stasis ulcerations. CTA was negative for any occlusions. MRI was negative for osteomyelitis. Past Med/Surg/Social History Past Medical History PFSH Reviewed: Yes Endocrine: REPORTS HX OF: Diabetes mellitus Cardiovascular: REPORTS HX OF: Heart failure Genitourinary: REPORTS HX OF: Kidney disease Social History Smoking Status: Former Smoker Review of Systems Notes No changes in his 14 point review of systems exam from yesterday Cardiovascular: COMPLAINS OF: Swelling legs / ankles Objective Vital Signs Vital Signs Date Time Temp Pulse Resp B/P Pulse Ox O2 Delivery O2 Flow Rate FiO2 05/30/16 07:50 98.7 68 17 143/64 97 05/30/16 04:00 98.5 65 19 125/57 98 05/30/16 02:58 100.6 66 18 118/57 96 05/30/16 00:00 101.4 74 20 128/57 98 05/29/16 20:00 98.6 74 18 116/57 100 05/29/16 16:00 99.4 75 16 111/57 99 Manual Cuff/Auscultation Coded Allergies: *MDRO Multi-Drug Resistant Organism (Verified Adverse Reaction, Unknown, ) MRSA (leg wound) - 06/2015, 05/28/16; MRSA (foot) - 08/2015,10/2015; MRSA (blood)-05/28/16 Tetracycline (Verified Adverse Reaction, Unknown, 11/21/15) THRUSH Medications and IVs Current Medications Piperacillin Sod/ Tazobactam Sod 100 ml @ 200 mls/hr ONCE STAT IV Last administered on 05/28/16 14:01; Start 05/28/16 at 10:54; Stop 05/28/16 at 11:24 ; Status DC Vancomycin HCl 1000 mg/Sodium Chloride 250 ml @ 250 mls/hr ONCE STAT IV Last administered on 05/28/16 14:02; Start 05/28/16 at 10:54; Stop 05/28/16 at 12:05 ; Status DC Sodium Chloride 1,000 ml @ 70 mls/hr [id number] IV Last administered on 05/30/16 08:15; Start 05/28/16 at 14:00 Piperacillin Sod/ Tazobactam Sod (Zosyn 4.5 Gm Premix) 100 ml @ 200 mls/hr Q6H IV Last administered on 05/30/16 08:14; Start 05/28/16 at 20:00 Docusate Sodium (Colace) 100 mg BID PO Last administered on 05/30/16 08:15; Start 05/28/16 at 21:00 Lisinopril (Prinivil) 20 mg DAILY PO Last administered on 05/30/16 08:14; Start 05/29/16 at 09:00 Methadone HCl (Dolophine) 10 mg Q12HR PO ; Start 05/28/16 at 21:00; Stop at 21:00; Status DC Warfarin Sodium (Coumadin) 7.5 mg SuTuWeFrSa PO ; Start 05/29/16 at 14:30; Status UNV Warfarin Sodium (Coumadin) 10 mg STAT ONCE PO Last administered on 05/28/16 23:00; Start 05/28/16 at 23:00; Stop 05/28/16 at 23:01; Status DC Ferrous Sulfate (Ferrous Sulfate) 325 mg BID PO Last administered on 05/30/16 08:14; Start 05/28/16 at 21:00 Non-Formulary Medication 600 mg TID PO Neuropathy; Start 05/28/16 at 18:00; Status UNV Pravastatin Sodium (Pravachol) 80 mg HS PO Last administered on 05/29/16 22:27 ; Start 05/28/16 at 21:00 Gabapentin (Neurontin) 600 mg TID PO Last administered on 05/30/16 12:02; Start 05/28/16 at 18:00 Lisinopril (Prinivil) 20 mg DAILY PO ; Start 05/29/16 at 09:00; Status UNV Warfarin Sodium (Coumadin) 7.5 mg SuMoTuWeFrSa PO Last administered on 16:23; Start 05/29/16 at 16:00; Stop 05/29/16 at 21:20; Status DC Warfarin Sodium (Coumadin) 10 mg MOTH PO ; Start 05/28/16 at 15:00; Status UNV Non-Formulary Medication 40 mg HS PO CM; Start 05/28/16 at 21:00; Status UNV Methadone HCl (Dolophine) 5 mg TID PO Last administered on 05/30/16 12:02; Start 05/28/16 at 18:00 Miscellaneous (Pill Splitter) 1 ea UNSCH PRN OTHER SEE LABEL COMMENTS; Start at 15:45 Hydromorphone HCl (Dilaudid Pf Inj) 0.5 mg Q4H PRN IV PUSH PAIN SCALE 4 TO 10; Start 05/28/16 at 17:15; Stop 05/28/16 at 17:15; Status DC Hydromorphone HCl (Dilaudid Pf Inj) 0.25 mg Q4H PRN IV PUSH PAIN SCALE 4 TO 10 Last administered on 05/29/16 09:31; Start 05/28/16 at 17:15; Stop 05/29/16 at 18:01; Status DC Warfarin Sodium (Coumadin) 10 mg MoTh PO ; Start 05/31/16 at 16:00; Status Cancel Miscellaneous Information ALL NURSING DEPARTME... UNSCH PRN XX SEE LABEL COMMENTS; Start 05/28/16 at 23:00; Stop 05/29/16 at 22:59; Status DC Patient Medication Teaching 1 1 ONCE ONCE XX Last administered on 05/28/16 16 :00; Start 05/28/16 at 16:00; Stop 05/28/16 at 22:55; Status DC Pharmacy Profile Note (Vancomycin Consult Pharmacy) 0 ml @ 0 mls/hr UNSCH OTHER ; Start 05/29/16 at 10:00 Gadodiamide 30 ml 30 ml STK-MED ONCE IV Last administered on 05/29/16 11:43; Start 05/29/16 at 11:43; Stop 05/29/16 at 11:44; Status DC Vancomycin HCl/ Sodium Chloride (Vancomycin Inj/ NS 500 ml Inj) 520 ml @ 250 mls/hr Q12H IV Last administered on 05/30/16 12:02; Start 05/29/16 at 13:00; Status Hold Miscellaneous Information SPECIFIC LAB TO BE DRAWN:VANCOMYCIN TROUGH DATE TO... ONCE ONCE XX ; Start 05/31/16 at 12:45; Stop 05/31/16 at 12:46 Iohexol (Omnipaque 350 Inj) 95 ml STK-MED ONCE IV Last administered on 15:04; Start 05/29/16 at 15:04; Stop 05/29/16 at 15:05; Status DC Hydromorphone HCl (Dilaudid Pf Inj) 0.5 mg Q4H PRN IV PUSH PAIN SCALE 4 TO 10 Last administered on 05/30/16 08:16; Start 05/29/16 at 21:15 Acetaminophen (Tylenol) 650 mg ONCE ONCE PO Last administered on 05/30/16 00: 14; Start 05/30/16 at 00:15; Stop 05/30/16 at 00:16; Status DC Diphenhydramine HCl (Benadryl) 50 mg ONCE ONCE PO Last administered on 00:14; Start 05/30/16 at 00:15; Stop 05/30/16 at 00:16; Status DC Gadodiamide (Omniscan Pf Inj) 30 ml STK-MED ONCE IV Last administered on 09:46; Start 05/30/16 at 09:46; Stop 05/30/16 at 09:47; Status DC Acetaminophen (Tylenol) 650 mg Q4H PRN PO TEMPERATURE > 100.5 F; Start 05/30/16 at 10:15 Other Results Laboratory Tests Test 05/29/16 05/30/16 18:10 08:02 White Blood Count 13.1 TH/MM3 11.8 TH/MM3 Red Blood Count 2.72 MIL/MM3 2.96 MIL/MM3 Hemoglobin 6.9 GM/DL 7.5 GM/DL Hematocrit 21.3 % 23.3 % Mean Corpuscular Volume 78.4 FL 78.4 FL Mean Corpuscular Hemoglobin 25.4 PG 25.4 PG Mean Corpuscular Hemoglobin 32.3 % 32.4 % Concent Red Cell Distribution Width 18.3 % 17.5 % Platelet Count 200 TH/MM3 208 TH/MM3 Mean Platelet Volume 7.2 FL 7.5 FL Neutrophils (%) (Auto) 81.3 % 79.9 % Lymphocytes (%) (Auto) 8.2 % 8.2 % Monocytes (%) (Auto) 10.1 % 10.2 % Eosinophils (%) (Auto) 0.1 % 1.3 % Basophils (%) (Auto) 0.3 % 0.4 % Neutrophils # (Auto) 10.7 TH/MM3 9.4 TH/MM3 Lymphocytes # (Auto) 1.1 TH/MM3 1.0 TH/MM3 Monocytes # (Auto) 1.3 TH/MM3 1.2 TH/MM3 Eosinophils # (Auto) 0.0 TH/MM3 0.1 TH/MM3 Basophils # (Auto) 0.0 TH/MM3 0.1 TH/MM3 CBC Comment DIFF FINAL DIFF FINAL Differential Comment Laboratory Tests Test 05/29/16 05/30/16 18:10 08:02 Sodium Level 136 MEQ/L 137 MEQ/L Potassium Level 3.6 MEQ/L 3.6 MEQ/L Chloride Level 100 MEQ/L 101 MEQ/L Carbon Dioxide Level 30.1 MEQ/L 27.6 MEQ/L Anion Gap 6 MEQ/L 8 MEQ/L Blood Urea Nitrogen 26 MG/DL 29 MG/DL Creatinine 1.53 MG/DL 1.56 MG/DL Estimat Glomerular Filtration 45 ML/MIN 44 ML/MIN Rate Random Glucose 105 MG/DL 102 MG/DL Calcium Level 7.5 MG/DL 7.8 MG/DL Microbiology Date/Time Procedure Status Source Growth 05/28/16 10:30 Aerobic Blood Culture - Final Complete Blood Peripheral S. Aureus Mrsa 05/28/16 10:30 Anaerobic Blood Culture - Final Complete S. Aureus Mrsa 05/28/16 10:40 Aerobic Blood Culture - Preliminary Resulted Blood Peripheral S. Aureus Mrsa 05/28/16 10:40 Anaerobic Blood Culture - Preliminary Resulted S. Aureus Mrsa 05/28/16 10:45 Gram Stain - Final Complete Wound Leg 05/28/16 10:45 Wound Culture - Final Complete S. Aureus Mrsa Exam-Podiatry Constitutional General appearance: comfortable Nutritional status: overweight Orientation: alert and oriented x3 Dermatological Exam Skin Temp - Right: Within Normal Limits Skin Texture - Right: Within Normal Limits Skin Elasticity - Right: Within Normal Limits Skin Tugor - Right: Within Normal Limits Hair Growth - Right: Within Normal Limits Pigmentation - Right: Within Normal Limits Skin Temp - Left: Within Normal Limits Skin Texture - Left: Within Normal Limits Skin Elasticity - Left: Within Normal Limits Skin Tugor - Left: Within Normal Limits Hair Growth - Left: Within Normal Limits Pigmentation - Left: Within Normal Limits Ulcers: Location/Measurements Multiple bilateral lower extremity leg and foot ulcerations secondary to venous insufficiency. Wounds are growing MRSA from the culture and sensitivity. Vascular/Lymphatic Exam R Dorsails Pedis: Palpable L Dorsails Pedis: Palpable R Posterior Tibial: Palpable L Posterior Tibial: Palpable Neurologic Exam Details Deferred Musculoskeletal Exam Details Amputation of the right hallux Muscle Strength Dorsiflexion (Right): Normal Plantarflexion (Right): Normal Inversion (Right): Normal Eversion (Right): Normal Digital (Right): Normal Dorsiflexion (Left): Normal Plantarflexion (Left): Normal Inversion (Left): Normal Eversion (Left): Normal Digital (Left): Normal Foot Range of Motion Dorsiflexion (Right): Normal Plantarflexion (Right): Normal Inversion (Right): Normal Eversion (Right): Normal Digital (Right): Normal Dorsiflexion (Left): Normal Plantarflexion (Left): Normal Inversion (Left): Normal Eversion (Left): Normal Digital (Left): Normal Extremities Edema: Left lower extremity: 4+, pitting, foot, ankle, leg Right lower extremity: 4+, pitting, foot, ankle, leg Assessment & Plan Diagnosis: (1) Chronic lymphangitis Status: Chronic (2) Cellulitis of both lower extremities Status: Acute (3) Diabetic foot ulcers Status: Chronic (4) Lymphedema of lower extremity Status: Chronic (5) Venous stasis ulcers of both lower extremities Status: Chronic (6) Diabetic ulcer of both feet associated with diabetes mellitus due to underlying condition Status: Chronic A/P Continue Optifoam gentle AG dressings every other day. Continue Shawn bandages for compression. Once patient is discharged she can follow with me in the wound center. Problem Qualifiers (1) Diabetic foot ulcers: Qualified Code: E11.621 - Diabetic ulcer of both feet associated with type 2 diabetes mellitus (2) Lymphedema of lower extremity: Qualified Code: I89.0 - Lymphedema of both lower extremities Chuck Hernandez DPM May 30, 2016 12:32
--- NOTE | 2016-05-30 17:10 | HHI.IDPN ---
Note Infectious Disease Note Patient is somnolent. made 2 trips to radiology for studies. Afebrile. Notes reviewed. Blood culture has MRSA. Foot wound culture has MRSA. PAST MEDICAL HISTORY 1. Diabetes mellitus insulin requiring 2. Diabetic neuropathy 3. Hypertension 4. Atrial fibrillation 5. Hyperlipidemia 6. Anemia 7. History of right great toe amputation ALLERGIES TETRACYCLINE MEDICATIONS 1. Piperacillin/Tazobactam 2. Vancomycin. OBJECTIVE: Vital Signs Date Time Temp Pulse Resp B/P Pulse Ox O2 Delivery O2 Flow Rate FiO2 05/30/16 15:12 20 05/30/16 12:00 98.1 80 18 136/62 98 05/30/16 07:50 98.7 68 17 143/64 97 05/30/16 04:00 98.5 65 19 125/57 98 05/30/16 02:58 100.6 66 18 118/57 96 05/30/16 00:00 101.4 74 20 128/57 98 05/29/16 20:00 98.6 74 18 116/57 100 Laboratory Tests Test 05/29/16 05/30/16 18:10 08:02 White Blood Count 13.1 TH/MM3 11.8 TH/MM3 Red Blood Count 2.72 MIL/MM3 2.96 MIL/MM3 Hemoglobin 6.9 GM/DL 7.5 GM/DL Hematocrit 21.3 % 23.3 % Mean Corpuscular Volume 78.4 FL 78.4 FL Mean Corpuscular Hemoglobin 25.4 PG 25.4 PG Mean Corpuscular Hemoglobin 32.3 % 32.4 % Concent Red Cell Distribution Width 18.3 % 17.5 % Platelet Count 200 TH/MM3 208 TH/MM3 Mean Platelet Volume 7.2 FL 7.5 FL Neutrophils (%) (Auto) 81.3 % 79.9 % Lymphocytes (%) (Auto) 8.2 % 8.2 % Monocytes (%) (Auto) 10.1 % 10.2 % Eosinophils (%) (Auto) 0.1 % 1.3 % Basophils (%) (Auto) 0.3 % 0.4 % Neutrophils # (Auto) 10.7 TH/MM3 9.4 TH/MM3 Lymphocytes # (Auto) 1.1 TH/MM3 1.0 TH/MM3 Monocytes # (Auto) 1.3 TH/MM3 1.2 TH/MM3 Eosinophils # (Auto) 0.0 TH/MM3 0.1 TH/MM3 Basophils # (Auto) 0.0 TH/MM3 0.1 TH/MM3 CBC Comment DIFF FINAL DIFF FINAL Differential Comment Laboratory Tests Test 05/29/16 05/30/16 18:10 08:02 Sodium Level 136 MEQ/L 137 MEQ/L Potassium Level 3.6 MEQ/L 3.6 MEQ/L Chloride Level 100 MEQ/L 101 MEQ/L Carbon Dioxide Level 30.1 MEQ/L 27.6 MEQ/L Anion Gap 6 MEQ/L 8 MEQ/L Blood Urea Nitrogen 26 MG/DL 29 MG/DL Creatinine 1.53 MG/DL 1.56 MG/DL Estimat Glomerular Filtration 45 ML/MIN 44 ML/MIN Rate Random Glucose 105 MG/DL 102 MG/DL Calcium Level 7.5 MG/DL 7.8 MG/DL Microbiology Date/Time Procedure Status Source Growth 05/28/16 10:30 Aerobic Blood Culture - Final Complete Blood Peripheral S. Aureus Mrsa 05/28/16 10:30 Anaerobic Blood Culture - Final Complete S. Aureus Mrsa 05/28/16 10:40 Aerobic Blood Culture - Preliminary Resulted Blood Peripheral S. Aureus Mrsa 05/28/16 10:40 Anaerobic Blood Culture - Preliminary Resulted S. Aureus Mrsa 05/28/16 10:45 Gram Stain - Final Complete Wound Leg 05/28/16 10:45 Wound Culture - Final Complete S. Aureus Mrsa PHYSICAL EXAMINATION GENERAL: No acute distress. Somnolent. Did not wake up for me. HEENT: No icterus. No visible lesions. NECK: Supple. No adenopathy. LUNGS: Clear to auscultation. HEART: A 2/6 systolic ejection murmur at the left upper sternal border. ABDOMEN: Bowel sounds present, soft. EXTREMITIES: Both legs have swelling and chronic ulcerations and erythema. NEUROLOGIC: Nonfocal. SKIN: No rash. PSYCH: Somnolent. IMPRESSION 1. Bilateral lower extremity cellulitis, right greater than left. 2. Chronic venous stasis / Diabetic ulcers - infected with MRSA. 3. Bacteremia - MRSA. Source being the leg infected wounds. RECOMMENDATIONS 1. Continue piperacillin/Tazobactam 2. Continue Vancomycin. 3. Repeat blood culture. 4. Follow clinical status. Kevin Staley MD May 30, 2016 17:10
[2016-05-30] MEDS: PRAVASTATIN SOD 80 MG TAB PO SCH (21:38)
[2016-05-31 00:02] VITALS: BP 135/59; PULSE 73; RESP 16; TEMP 99.1; O2SAT 95
[2016-05-31] MEDS: PIPERACIL-TAZO 4.5 GM PREMIX 100 ML IV SCH ×4 (02:31→21:06)
[2016-05-31 04:00] VITALS: BP 121/58; PULSE 68; RESP 16; TEMP 100; O2SAT 94
[2016-05-31 08:00] VITALS: BP 123/56; PULSE 66; RESP 20; TEMP 101.2; O2SAT 95
[2016-05-31] MEDS: LISINOPRIL 20 MG TAB PO SCH ×2 (08:54→10:27)
[2016-05-31] MEDS: FERROUS SULFATE 325 MG (65 MG ELEMENTAL IRON) TAB PO SCH ×2 (08:54→21:07)
[2016-05-31] MEDS: DOCUSATE SODIUM 100 MG CAP PO SCH ×2 (08:55→21:00)
--- NOTE | 2016-05-31 09:59 | HHI.PR ---
Subjective Remarks complains of diarrhea states he feels he can move his legs/hip better Objective Vitals Vital Signs Date Time Temp Pulse Resp B/P Pulse Ox O2 Delivery O2 Flow Rate FiO2 05/31/16 08:00 101.2 66 20 123/56 95 05/31/16 04:00 100.0 68 16 121/58 94 05/31/16 00:02 99.1 73 16 135/59 95 05/30/16 20:11 98.5 80 16 109/55 100 05/30/16 18:18 20 05/30/16 17:05 98.0 77 17 109/52 99 05/30/16 12:00 98.1 80 18 136/62 98 I/O 05/30/16 05/30/16 05/30/16 05/31/16 05/31/16 05/31/16 07:00 15:00 23:00 07:00 15:00 23:00 Intake Total 0 ml 720 ml 640 ml Output Total 500 ml 1000 ml Balance 0 ml 220 ml -360 ml Intake Oral 0 ml 720 ml 640 ml Output Urine Total 500 ml 1000 ml # Voids 0 # Bowel Movements 1 3 Result Diagram: 05/30/16 0802 05/30/16 0802 Imaging Last Impressions Hip MRI 05/30/16 0000 Signed Impressions: Service Date/Time: Monday, May 30, 2016 09:01 - CONCLUSION: 1. Mild osteoarthritis of the bilateral hips. No acute findings at the right hip joint. Specifically no fracture or joint effusion. 2. External iliac adenopathy and mild inguinal adenopathy as above. Salomón Morris MD Lower Extremity MRI 05/29/16 0000 Signed Impressions: Service Date/Time: Sunday, May 29, 2016 09:55 - CONCLUSION: Numerous open wounds with soft tissue defects particularly along the medial aspect of the tibial shaft. The periosteum is markedly thickened in that region likely multiple chronic areas of infection. Does not have the typical appearance of an acute osteomyelitis, it appears much more chronic. There is very little skin overlying the bone. Low-grade edema throughout the musculature without any deep drainable fluid collections. Manuel Encarnacion MD Foot MRI 05/29/16 0000 Signed Impressions: Service Date/Time: Sunday, May 29, 2016 09:55 - CONCLUSION: Very impressive soft tissue swelling across the foot. I do not see any underlying marrow edema or marrow placement to suggest ongoing osteomyelitis. There is some impressive bony edema in the hind foot with a marked hind foot valgus alignment. No open wound or obvious marrow placing process to suggest osteomyelitis. Manuel Encarnacion MD Aorta w/Runoff CTA 05/29/16 0000 Signed Impressions: Service Date/Time: Sunday, May 29, 2016 14:49 - CONCLUSION: 1. No evidence of vascular disease to the level of the knees with nondiagnostic evaluation in the infrapopliteal vessels. 2. Possible mass measuring 5 cm in segment 6 of the liver. MRI is recommended for further evaluation if clinically indicated. Jerome Waterman MD Lower Extremity Ultrasound 05/28/16 0000 Signed Impressions: Service Date/Time: Saturday, May 28, 2016 12:24 - CONCLUSION: Negative for deep venous thrombosis. Dez Bell MD FACR Objective Remarks GENERAL: Obese, in no apparent distress. HEAD: Atraumatic. Normocephalic. EYES: Pupils equal round and reactive. Extraocular motions intact. No scleral icterus. No injection or drainage. ENT: Nose without bleeding Throat without erythema, tonsillar hypertrophy or exudate.Airway patent. NECK: Trachea midline. No JVD or lymphadenopathy. Supple, nontender, no meningeal signs. CARDIOVASCULAR: Regular rate and rhythm without murmurs, gallops, or rubs. RESPIRATORY: Clear to auscultation. Breath sounds equal bilaterally. No wheezes , rales, or rhonchi. GASTROINTESTINAL: Abdomen soft, non-tender, flabby. No guarding. MUSCULOSKELETAL: Right lower extremity -dresing in place, better range of motion Left lower extremity with good range of motion SKIN :LE- both legs with dressing in place NEUROLOGICAL: Awake and alert. Cranial nerves II through XII intact. moves all extremities spontaneously - cautiously A/P Assessment and Plan 70-year-old male presenting with MRSA sepsis due to Severe Extensive Cellulitis of both LE - Right> Left with chronic non healing ulcers with underlying chronic lymphedema Dr. Staley and Dr. Hernandez ff along with us CTA runoff-- no obstruction IV Dilaudid prn for pain On zosyn and Vancomycin Severe right lower extremity/hip - no fracture Doppler ultrasound of the right lower extremity - negative for DVT. MRI of the leg/foot- shows soft tissue swelling MRI of the right hip- no fracture PT consult acute kidney injury.- renal functions stabilizing, non oliguric on gentle hydration with normal saline history of chronic pain/neuropathy. Continue on methadone 5 mg tid Continue on Percocet 5/325 mg we'll increase to every 4 when necessary- decrease to q 6 Continue on gabapentin 600 mg 3 times a day continue on his bowel regimen history of chronic atrial fibrillation- in SR, hyperlipidemia, hypertension on coumadin as OP- hold with drop in Hemoglobin Continue Zocor 40 mg at bedtime , Lisinopril 10 mg daily Acute anemia on top of anemia of chronic disease S/P 1 unit PRBC 05/29 ff H and H and H- stabilizing check guiac stools. PPI Diarrhea- r/o C diff Send stools for c diff. start lactinex tid Dany Jean MD May 31, 2016 09:59
[2016-05-31] MEDS: GABAPENTIN 300 MG CAP PO SCH ×3 (10:26→18:08)
[2016-05-31] MEDS: METHADONE HCL 10 MG TAB PO SCH ×3 (10:27→18:08)
[2016-05-31] MEDS: VANCOMYCIN INJ 2,000 MG in SODIUM CHLORID 0.9% 500 ML INJ 500 ML IV SCH ×2 (11:00→23:31)
[2016-05-31 11:52] VITALS: BP 115/51; PULSE 64; RESP 20; TEMP 98; O2SAT 97
[2016-05-31] MEDS ORDERED: PHARMACY ORDERED LAB XX ONE (12:45)
[2016-05-31] MEDS: LACTOBACILLUS ACIDOPHILUS TAB PO SCH ×2 (13:47→18:08)
[2016-05-31 14:57] LABS: C. DIFF EPI 027 PRESUMPTIVE NEGATIVE (NEGATIVE); C. DIFF TOXIN PCR NEGATIVE (NEGATIVE)
--- NOTE | 2016-05-31 15:18 | HHI.IDPN ---
Note Infectious Disease Note Patient feels better. Says he feels like he was going to last night. Not specific about why. He was very somnolent last night. Now alert. Temp of 101.2. Denies chills. No nausea or vomiting. Notes diarrhea. Stool c. diff neg. PAST MEDICAL HISTORY 1. Diabetes mellitus insulin requiring 2. Diabetic neuropathy 3. Hypertension 4. Atrial fibrillation 5. Hyperlipidemia 6. Anemia 7. History of right great toe amputation ALLERGIES TETRACYCLINE MEDICATIONS 1. Piperacillin/Tazobactam 2. Vancomycin. OBJECTIVE: Vital Signs Date Time Temp Pulse Resp B/P Pulse Ox O2 Delivery O2 Flow Rate FiO2 05/31/16 11:52 98.0 64 20 115/51 97 05/31/16 08:00 101.2 66 20 123/56 95 05/31/16 04:00 100.0 68 16 121/58 94 05/31/16 00:02 99.1 73 16 135/59 95 05/30/16 20:11 98.5 80 16 109/55 100 05/30/16 18:18 20 05/30/16 17:05 98.0 77 17 109/52 99 05/30/16 05/30/16 05/31/16 15:00 23:00 07:00 Intake Total 720 ml 640 ml Output Total 500 ml 1000 ml Balance 220 ml -360 ml Intake Oral 720 ml 640 ml Output Urine Total 500 ml 1000 ml # Bowel Movements 1 3 Laboratory Tests Test 05/29/16 05/30/16 18:10 08:02 White Blood Count 13.1 TH/MM3 11.8 TH/MM3 Red Blood Count 2.72 MIL/MM3 2.96 MIL/MM3 Hemoglobin 6.9 GM/DL 7.5 GM/DL Hematocrit 21.3 % 23.3 % Mean Corpuscular Volume 78.4 FL 78.4 FL Mean Corpuscular Hemoglobin 25.4 PG 25.4 PG Mean Corpuscular Hemoglobin 32.3 % 32.4 % Concent Red Cell Distribution Width 18.3 % 17.5 % Platelet Count 200 TH/MM3 208 TH/MM3 Mean Platelet Volume 7.2 FL 7.5 FL Neutrophils (%) (Auto) 81.3 % 79.9 % Lymphocytes (%) (Auto) 8.2 % 8.2 % Monocytes (%) (Auto) 10.1 % 10.2 % Eosinophils (%) (Auto) 0.1 % 1.3 % Basophils (%) (Auto) 0.3 % 0.4 % Neutrophils # (Auto) 10.7 TH/MM3 9.4 TH/MM3 Lymphocytes # (Auto) 1.1 TH/MM3 1.0 TH/MM3 Monocytes # (Auto) 1.3 TH/MM3 1.2 TH/MM3 Eosinophils # (Auto) 0.0 TH/MM3 0.1 TH/MM3 Basophils # (Auto) 0.0 TH/MM3 0.1 TH/MM3 CBC Comment DIFF FINAL DIFF FINAL Differential Comment Laboratory Tests Test 05/29/16 05/30/16 18:10 08:02 Sodium Level 136 MEQ/L 137 MEQ/L Potassium Level 3.6 MEQ/L 3.6 MEQ/L Chloride Level 100 MEQ/L 101 MEQ/L Carbon Dioxide Level 30.1 MEQ/L 27.6 MEQ/L Anion Gap 6 MEQ/L 8 MEQ/L Blood Urea Nitrogen 26 MG/DL 29 MG/DL Creatinine 1.53 MG/DL 1.56 MG/DL Estimat Glomerular Filtration 45 ML/MIN 44 ML/MIN Rate Random Glucose 105 MG/DL 102 MG/DL Calcium Level 7.5 MG/DL 7.8 MG/DL Microbiology Date/Time Procedure Status Source Growth 05/31/16 06:20 Aerobic Blood Culture Received Blood Peripheral Pending 05/31/16 06:20 Anaerobic Blood Culture Received Blood Peripheral Pending 05/31/16 11:40 Stool Occult Blood (YASMINE) Received Stool Stool Pending Microbiology Date/Time Procedure Status Source Growth 05/28/16 10:30 Aerobic Blood Culture - Final Complete Blood Peripheral S. Aureus Mrsa 05/28/16 10:30 Anaerobic Blood Culture - Final Complete S. Aureus Mrsa 05/28/16 10:40 Aerobic Blood Culture - Preliminary Resulted Blood Peripheral S. Aureus Mrsa 05/28/16 10:40 Anaerobic Blood Culture - Preliminary Resulted S. Aureus Mrsa 05/28/16 10:45 Gram Stain - Final Complete Wound Leg 05/28/16 10:45 Wound Culture - Final Complete S. Aureus Mrsa PHYSICAL EXAMINATION GENERAL: No acute distress. More alert. HEENT: No icterus. No visible lesions. NECK: Supple. No adenopathy. LUNGS: Clear to auscultation. HEART: A 2/6 systolic ejection murmur at the left upper sternal border. ABDOMEN: Bowel sounds present, soft. EXTREMITIES: Both legs have swelling and chronic ulcerations and erythema. Ulcers at the anterior tibias have green creamy sloth. NEUROLOGIC: Nonfocal. SKIN: No rash. PSYCH: Calm. Pleasant affect. IMPRESSION 1. Bilateral lower extremity cellulitis, right greater than left. 2. Chronic venous stasis / Diabetic ulcers - infected with MRSA. 3. Bacteremia - MRSA. Source being the leg infected wounds. RECOMMENDATIONS 1. Continue piperacillin/Tazobactam 2. Continue Vancomycin. 3. Repeat blood culture. 4. Follow clinical status. Kevin Staley MD May 31, 2016 15:18
[2016-05-31 16:00] VITALS: BP 123/60; PULSE 89; RESP 20; TEMP 97.9; O2SAT 94
[2016-05-31] MEDS ORDERED: WARFARIN SOD 10 MG TAB PO SCH (16:00)
[2016-05-31] MEDS: PANTOPRAZOLE SOD 40 MG DELAYED RELEASE TAB PO SCH (18:08)
[2016-05-31 20:00] VITALS: BP 110/60; PULSE 67; RESP 22; TEMP 98.4; O2SAT 98
[2016-05-31] MEDS: PRAVASTATIN SOD 80 MG TAB PO SCH (21:07)
[2016-06-01] VITALS: BP 119/59; PULSE 68; RESP 22; TEMP 98; O2SAT 96
[2016-06-01] MEDS: PIPERACIL-TAZO 4.5 GM PREMIX 100 ML IV SCH ×4 (02:50→21:03)
[2016-06-01] MEDS: SODIUM CHLOR 0.9% 1000 ML INJ 1,000 ML IV SCH ×3 (03:48→20:22)
[2016-06-01 04:00] VITALS: BP 127/60; PULSE 65; RESP 22; TEMP 98.5; O2SAT 97
[2016-06-01 07:02] LABS: BICARBONATE 29.7 MEQ/L (21.0-32.0); POTASSIUM 3.5 MEQ/L (3.5-5.1)
[2016-06-01 07:16] LABS: AUTOMATED NEUTROPHIL # 5.6 TH/MM3 (1.8-7.7); BASOPHIL % 0.6 % (0.0-2.0); EOSINOPHIL # 0.3 TH/MM3 (0-0.4); EOSINOPHIL % 3.4 % (0.0-4.0); HEMATOCRIT 21.9 % (39.0-51.0); HEMO FLAGS DIFF FINAL; LYMPHOCYTE # 0.9 TH/MM3 (1.0-4.8); MEAN CELL VOLUME 78.4 FL (80.0-100.0); MEAN CORPUSCULAR HEMOGLOBIN 26.1 PG (27.0-34.0); MEAN CORPUSCULAR HGB CONC 33.2 % (32.0-36.0); MONO % 10.6 % (0.0-8.0); NEUT % 73.4 % (16.0-70.0); PLATELET COUNT 205 TH/MM3 (150-450); RED BLOOD COUNT 2.79 MIL/MM3 (4.50-5.90); RED CELL DISTRIBUTION WIDTH 17.4 % (11.6-17.2); WHITE BLOOD COUNT 7.7 TH/MM3 (4.0-11.0)
[2016-06-01] MEDS: LACTOBACILLUS ACIDOPHILUS TAB PO SCH ×2 (07:43→13:18)
[2016-06-01] MEDS: FERROUS SULFATE 325 MG (65 MG ELEMENTAL IRON) TAB PO SCH ×2 (07:43→21:03)
[2016-06-01] MEDS: GABAPENTIN 300 MG CAP PO SCH ×3 (07:43→17:12)
[2016-06-01] MEDS: PANTOPRAZOLE SOD 40 MG DELAYED RELEASE TAB PO SCH (07:43)
[2016-06-01] MEDS: METHADONE HCL 10 MG TAB PO SCH ×3 (07:44→17:13)
[2016-06-01] MEDS: LISINOPRIL 20 MG TAB PO SCH (07:44)
[2016-06-01] MEDS: DOCUSATE SODIUM 100 MG CAP PO SCH ×2 (07:44→21:00)
[2016-06-01 08:00] VITALS: BP 131/57; PULSE 74; RESP 20; TEMP 97.2; O2SAT 96
[2016-06-01] MEDS: VANCOMYCIN INJ 2,000 MG in SODIUM CHLORID 0.9% 500 ML INJ 500 ML IV SCH ×2 (11:42→22:39)
[2016-06-01 12:00] VITALS: BP 112/83; PULSE 68; RESP 20; TEMP 98; O2SAT 96
--- NOTE | 2016-06-01 14:36 | HHI.PR ---
Subjective Remarks states still loose stools- no pain complains staff nurse reports none Objective Vitals Vital Signs Date Time Temp Pulse Resp B/P Pulse Ox O2 Delivery O2 Flow Rate FiO2 06/01/16 12:00 98.0 68 20 112/83 96 06/01/16 08:44 20 06/01/16 08:00 97.2 74 20 131/57 96 06/01/16 04:00 98.5 65 22 127/60 97 06/01/16 00:00 98.0 68 22 119/59 96 05/31/16 20:00 98.4 67 22 110/60 98 05/31/16 16:00 97.9 89 20 123/60 94 I/O 05/31/16 05/31/16 05/31/16 06/01/16 06/01/16 06/01/16 07:00 15:00 23:00 07:00 15:00 23:00 Intake Total 640 ml 1760 ml 490 ml 805 ml Output Total 1000 ml 1000 ml 1000 ml Balance -360 ml 760 ml 490 ml -195 ml Intake Oral 640 ml 960 ml 320 ml IV Total 800 ml 490 ml 485 ml Output Urine Total 1000 ml 1000 ml 1000 ml # Bowel Movements 3 1 2 Result Diagram: 06/01/16 0543 06/01/16 0543 Imaging Last Impressions Hip MRI 05/30/16 0000 Signed Impressions: Service Date/Time: Monday, May 30, 2016 09:01 - CONCLUSION: 1. Mild osteoarthritis of the bilateral hips. No acute findings at the right hip joint. Specifically no fracture or joint effusion. 2. External iliac adenopathy and mild inguinal adenopathy as above. Salomón Morris MD Lower Extremity MRI 05/29/16 0000 Signed Impressions: Service Date/Time: Sunday, May 29, 2016 09:55 - CONCLUSION: Numerous open wounds with soft tissue defects particularly along the medial aspect of the tibial shaft. The periosteum is markedly thickened in that region likely multiple chronic areas of infection. Does not have the typical appearance of an acute osteomyelitis, it appears much more chronic. There is very little skin overlying the bone. Low-grade edema throughout the musculature without any deep drainable fluid collections. Manuel Encarnacion MD Foot MRI 05/29/16 0000 Signed Impressions: Service Date/Time: Sunday, May 29, 2016 09:55 - CONCLUSION: Very impressive soft tissue swelling across the foot. I do not see any underlying marrow edema or marrow placement to suggest ongoing osteomyelitis. There is some impressive bony edema in the hind foot with a marked hind foot valgus alignment. No open wound or obvious marrow placing process to suggest osteomyelitis. Manuel Encarnacion MD Aorta w/Runoff CTA 05/29/16 0000 Signed Impressions: Service Date/Time: Sunday, May 29, 2016 14:49 - CONCLUSION: 1. No evidence of vascular disease to the level of the knees with nondiagnostic evaluation in the infrapopliteal vessels. 2. Possible mass measuring 5 cm in segment 6 of the liver. MRI is recommended for further evaluation if clinically indicated. Jerome Waterman MD Lower Extremity Ultrasound 05/28/16 0000 Signed Impressions: Service Date/Time: Saturday, May 28, 2016 12:24 - CONCLUSION: Negative for deep venous thrombosis. Dez Bell MD FACR Objective Remarks GENERAL: Obese, in no apparent distress. HEAD: Atraumatic. Normocephalic. EYES: Pupils equal round and reactive. Extraocular motions intact. No scleral icterus. No injection or drainage. NECK: Trachea midline. No JVD or lymphadenopathy. Supple, nontender, no meningeal signs. CARDIOVASCULAR: Regular rate and rhythm without murmurs, gallops, or rubs. RESPIRATORY: Clear to auscultation. Breath sounds equal bilaterally. No wheezes , rales, or rhonchi. GASTROINTESTINAL: Abdomen soft, non-tender, flabby. No guarding. MUSCULOSKELETAL: moves toes- limited by weight SKIN :LE- both legs with dressing in place NEUROLOGICAL: Awake and alert. Cranial nerves II through XII intact. moves all extremities spontaneously - cautiously A/P Assessment and Plan 70-year-old male presenting with MRSA sepsis due to Severe Extensive Cellulitis of both LE - Right> Left with chronic non healing ulcers with underlying chronic lymphedema Dr. Staley and Dr. Hernandez ff along with us CTA runoff-- no obstruction IV Dilaudid prn for pain. on methadone on zosyn and Vancomycin Severe right lower extremity/hip - no fracture Doppler ultrasound of the right lower extremity - negative for DVT. MRI of the leg/foot- shows soft tissue swelling MRI of the right hip- no fracture PT consult acute kidney injury.- renal functions stabilizing, non oliguric on gentle hydration with normal saline history of chronic pain/neuropathy. Continue on methadone 5 mg tid Continue on Percocet 5/325 mg we'll increase to every 4 when necessary- decrease to q 6 Continue on gabapentin 600 mg 3 times a day continue on his bowel regimen history of chronic atrial fibrillation- in SR, hyperlipidemia, hypertension on coumadin as OP- hold with drop in Hemoglobin Continue Zocor 40 mg at bedtime , Lisinopril 10 mg daily Acute anemia on top of anemia of chronic disease S/P 1 unit PRBC 05/29 ff H and H and H- stabilizing negative guiac stools. PPI Diarrhea-- C diff negative lactinex tid Lovenox for DVT prophylaxis Dany Jean MD Jun 01, 2016 14:36
--- NOTE | 2016-06-01 15:18 | HHI.IDPN ---
Note Infectious Disease Note Patient feels chilly. Says he has diarrhea. Alert. Temp of 100.6 max today. No nausea or vomiting. Stool c. diff neg. PAST MEDICAL HISTORY 1. Diabetes mellitus insulin requiring 2. Diabetic neuropathy 3. Hypertension 4. Atrial fibrillation 5. Hyperlipidemia 6. Anemia 7. History of right great toe amputation ALLERGIES TETRACYCLINE MEDICATIONS 1. Piperacillin/Tazobactam 2. Vancomycin. OBJECTIVE: Vital Signs Date Time Temp Pulse Resp B/P Pulse Ox O2 Delivery O2 Flow Rate FiO2 06/01/16 12:00 98.0 68 20 112/83 96 06/01/16 08:44 20 06/01/16 08:00 97.2 74 20 131/57 96 06/01/16 04:00 98.5 65 22 127/60 97 06/01/16 00:00 98.0 68 22 119/59 96 05/31/16 20:00 98.4 67 22 110/60 98 05/31/16 16:00 97.9 89 20 123/60 94 05/31/16 05/31/16 06/01/16 15:00 23:00 07:00 Intake Total 1760 ml 490 ml 805 ml Output Total 1000 ml 1000 ml Balance 760 ml 490 ml -195 ml Intake Oral 960 ml 320 ml IV Total 800 ml 490 ml 485 ml Output Urine Total 1000 ml 1000 ml # Bowel Movements 1 2 Laboratory Tests Test 06/01/16 05:43 White Blood Count 7.7 TH/MM3 Red Blood Count 2.79 MIL/MM3 Hemoglobin 7.3 GM/DL Hematocrit 21.9 % Mean Corpuscular Volume 78.4 FL Mean Corpuscular Hemoglobin 26.1 PG Mean Corpuscular Hemoglobin 33.2 % Concent Red Cell Distribution Width 17.4 % Platelet Count 205 TH/MM3 Mean Platelet Volume 7.9 FL Neutrophils (%) (Auto) 73.4 % Lymphocytes (%) (Auto) 12.0 % Monocytes (%) (Auto) 10.6 % Eosinophils (%) (Auto) 3.4 % Basophils (%) (Auto) 0.6 % Neutrophils # (Auto) 5.6 TH/MM3 Lymphocytes # (Auto) 0.9 TH/MM3 Monocytes # (Auto) 0.8 TH/MM3 Eosinophils # (Auto) 0.3 TH/MM3 Basophils # (Auto) 0.0 TH/MM3 CBC Comment DIFF FINAL Differential Comment Laboratory Tests Test 06/01/16 05:43 Sodium Level 138 MEQ/L Potassium Level 3.5 MEQ/L Chloride Level 102 MEQ/L Carbon Dioxide Level 29.7 MEQ/L Anion Gap 6 MEQ/L Blood Urea Nitrogen 26 MG/DL Creatinine 1.44 MG/DL Estimat Glomerular Filtration 49 ML/MIN Rate Random Glucose 159 MG/DL Calcium Level 7.9 MG/DL Microbiology Date/Time Procedure Status Source Growth 05/31/16 06:20 Aerobic Blood Culture - Preliminary Resulted Blood Peripheral NO GROWTH IN 1 DAY 05/31/16 06:20 Anaerobic Blood Culture - Preliminary Resulted Blood Peripheral NO GROWTH IN 1 DAY 05/31/16 11:40 Stool Occult Blood (YASMINE) - Final Complete Stool Stool HEMOCCULT NEGATIVE Microbiology Date/Time Procedure Status Source Growth 05/28/16 10:30 Aerobic Blood Culture - Final Complete Blood Peripheral S. Aureus Mrsa 05/28/16 10:30 Anaerobic Blood Culture - Final Complete S. Aureus Mrsa 05/28/16 10:40 Aerobic Blood Culture - Preliminary Resulted Blood Peripheral S. Aureus Mrsa 05/28/16 10:40 Anaerobic Blood Culture - Preliminary Resulted S. Aureus Mrsa 05/28/16 10:45 Gram Stain - Final Complete Wound Leg 05/28/16 10:45 Wound Culture - Final Complete S. Aureus Mrsa PHYSICAL EXAMINATION GENERAL: No acute distress. HEENT: No icterus. No visible lesions. NECK: Supple. No adenopathy. LUNGS: Clear to auscultation. HEART: A 2/6 systolic ejection murmur at the left upper sternal border. Also at RLSB. ABDOMEN: Bowel sounds present, soft. EXTREMITIES: Both legs have swelling and chronic ulcerations and erythema. Ulcers at the anterior tibias have green creamy sloth. NEUROLOGIC: Nonfocal. SKIN: No rash. PSYCH: Calm. Pleasant affect. IMPRESSION 1. Bilateral lower extremity cellulitis, right greater than left. 2. Chronic venous stasis / Diabetic ulcers - infected with MRSA. 3. Bacteremia - MRSA. Source being the leg infected wounds. 4. Fever low grade. 5. Diarrhea - c. diff neg. RECOMMENDATIONS 1. Stop piperacillin/Tazobactam 2. Continue Vancomycin. 3. Repeat blood culture. 4. Add Lactinex. 5. Follow clinical status. Kevin Staley MD Jun 01, 2016 15:18
[2016-06-01] MEDS: ENOXAPARIN SODIUM 30 MG/0.3 ML SYRINGE SQ SCH (15:45)
[2016-06-01 16:00] VITALS: BP 105/58; PULSE 60; RESP 20; TEMP 98.3; O2SAT 99
[2016-06-01] MEDS: LACTOBACILLUS ACIDOPHILUS 1 GM PACKET PO SCH (17:13)
[2016-06-01 20:00] VITALS: BP 122/60; PULSE 65; RESP 17; TEMP 97.1; O2SAT 97
[2016-06-01] MEDS: PRAVASTATIN SOD 80 MG TAB PO SCH (21:03)
[2016-06-01] MEDS: HYDROmorphone HCL PF 1 MG/ML VIAL IV PUSH PRN (21:15)
[2016-06-02] VITALS: BP 119/58; PULSE 62; RESP 18; TEMP 98.8; O2SAT 96
[2016-06-02] MEDS: PIPERACIL-TAZO 4.5 GM PREMIX 100 ML IV SCH ×2 (02:54→08:58)
[2016-06-02 04:00] VITALS: BP 128/89; PULSE 73; RESP 18; TEMP 98; O2SAT 98
[2016-06-02 08:08] VITALS: BP 132/60; PULSE 59; RESP 16; TEMP 98.3; O2SAT 97
[2016-06-02] MEDS: GABAPENTIN 300 MG CAP PO SCH ×3 (08:57→16:51)
[2016-06-02] MEDS: PANTOPRAZOLE SOD 40 MG DELAYED RELEASE TAB PO SCH (08:57)
[2016-06-02] MEDS: FERROUS SULFATE 325 MG (65 MG ELEMENTAL IRON) TAB PO SCH ×2 (08:57→21:20)
[2016-06-02] MEDS: DOCUSATE SODIUM 100 MG CAP PO SCH (08:58)
[2016-06-02] MEDS: LISINOPRIL 20 MG TAB PO SCH (08:58)
[2016-06-02] MEDS: METHADONE HCL 10 MG TAB PO SCH ×3 (08:58→16:52)
[2016-06-02] MEDS: LACTOBACILLUS ACIDOPHILUS 1 GM PACKET PO SCH ×3 (08:58→16:51)
[2016-06-02] MEDS ORDERED: PHARMACY ORDERED LAB XX ONE (10:45)
--- NOTE | 2016-06-02 11:09 | HHI.PR ---
Subjective Remarks complains of loose stools, per staff, yellow brown, non bloody Objective Vitals Vital Signs Date Time Temp Pulse Resp B/P Pulse Ox O2 Delivery O2 Flow Rate FiO2 06/02/16 08:08 98.3 59 16 132/60 97 06/02/16 04:00 98.0 73 18 128/89 98 06/02/16 00:00 98.8 62 18 119/58 96 06/01/16 20:00 97.1 65 17 122/60 97 06/01/16 18:30 18 06/01/16 16:00 98.3 60 20 105/58 99 06/01/16 12:00 98.0 68 20 112/83 96 I/O 06/01/16 06/01/16 06/01/16 06/02/16 06/02/16 06/02/16 07:00 15:00 23:00 07:00 15:00 23:00 Intake Total 805 ml 960 ml 1556 ml 840 ml Output Total 1000 ml 1200 ml 500 ml 600 ml Balance -195 ml -240 ml 1056 ml 240 ml Intake Oral 320 ml 960 ml 1200 ml 480 ml IV Total 485 ml 356 ml 360 ml Output Urine Total 1000 ml 1200 ml 500 ml 600 ml # Bowel Movements 2 2 0 0 Result Diagram: 06/01/16 0543 06/01/16 0543 Imaging Last Impressions Hip MRI 05/30/16 0000 Signed Impressions: Service Date/Time: Monday, May 30, 2016 09:01 - CONCLUSION: 1. Mild osteoarthritis of the bilateral hips. No acute findings at the right hip joint. Specifically no fracture or joint effusion. 2. External iliac adenopathy and mild inguinal adenopathy as above. Salomón Morris MD Lower Extremity MRI 05/29/16 0000 Signed Impressions: Service Date/Time: Sunday, May 29, 2016 09:55 - CONCLUSION: Numerous open wounds with soft tissue defects particularly along the medial aspect of the tibial shaft. The periosteum is markedly thickened in that region likely multiple chronic areas of infection. Does not have the typical appearance of an acute osteomyelitis, it appears much more chronic. There is very little skin overlying the bone. Low-grade edema throughout the musculature without any deep drainable fluid collections. Manuel Encarnacion MD Foot MRI 05/29/16 0000 Signed Impressions: Service Date/Time: Sunday, May 29, 2016 09:55 - CONCLUSION: Very impressive soft tissue swelling across the foot. I do not see any underlying marrow edema or marrow placement to suggest ongoing osteomyelitis. There is some impressive bony edema in the hind foot with a marked hind foot valgus alignment. No open wound or obvious marrow placing process to suggest osteomyelitis. Manuel Encarnacion MD Aorta w/Runoff CTA 05/29/16 0000 Signed Impressions: Service Date/Time: Sunday, May 29, 2016 14:49 - CONCLUSION: 1. No evidence of vascular disease to the level of the knees with nondiagnostic evaluation in the infrapopliteal vessels. 2. Possible mass measuring 5 cm in segment 6 of the liver. MRI is recommended for further evaluation if clinically indicated. Jerome Waterman MD Lower Extremity Ultrasound 05/28/16 0000 Signed Impressions: Service Date/Time: Saturday, May 28, 2016 12:24 - CONCLUSION: Negative for deep venous thrombosis. Dez Bell MD FACR Objective Remarks GENERAL: Obese, HEAD: Atraumatic. Normocephalic. EYES: Pupils equal round and reactive. Extraocular motions intact. No scleral icterus. No injection or drainage. NECK: Trachea midline. No JVD or lymphadenopathy. Supple, nontender, no meningeal signs. CARDIOVASCULAR: Regular rate and rhythm without murmurs, gallops, or rubs. RESPIRATORY: Clear to auscultation. Breath sounds equal bilaterally. No wheezes , rales, or rhonchi. GASTROINTESTINAL: Abdomen soft, non-tender, flabby. No guarding. MUSCULOSKELETAL: moves toes- limited by weight SKIN :LE- both legs with dressing in place, moving toes more freely, swelling decreased NEUROLOGICAL: Awake and alert. Cranial nerves II through XII intact. moves all extremities spontaneously - cautiously A/P Assessment and Plan 70-year-old male presenting with MRSA sepsis due to Severe Extensive Cellulitis of both LE - Right> Left with chronic non healing ulcers with underlying chronic lymphedema Dr. Staley CTA runoff-- no obstruction IV Dilaudid prn for pain. on methadone On Vancomycin.. will DC zosyn as per ID notes 2/3 Severe right lower extremity/hip - no fracture pain better Doppler ultrasound of the right lower extremity - negative for DVT. MRI of the leg/foot- shows soft tissue swelling MRI of the right hip- no fracture PT consult acute kidney injury.- renal functions stabilizing, non oliguric likely with underlying CKI on gentle hydration with normal saline history of chronic pain/neuropathy. Continue on methadone 5 mg tid Continue on Percocet 5/325 mg we'll increase to every 4 when necessary- decrease to q 6 Continue on gabapentin 600 mg 3 times a day continue on his bowel regimen history of chronic atrial fibrillation- in SR, hyperlipidemia, hypertension on coumadin as OP- hold with drop in Hemoglobin Continue Zocor 40 mg at bedtime , Lisinopril 10 mg daily Acute anemia on top of anemia of chronic disease S/P 1 unit PRBC 05/29 ff H and H and H- stabilizing negative guiac stools. PPI Diarrhea-- C diff negative lactinex tid. give x 1 Imodium Lovenox for DVT prophylaxis Dany Jean MD Jun 02, 2016 11:09
--- NOTE | 2016-06-02 11:13 | PD.POD ---
Subjective Podiatric Problems Bilateral lymphedema Lower extremity venous stasis ulcerations bilaterally Ulcerations growing MRSA. Diabetes Pain scale used: 0-10 numeric scale Pain score: 4 Remarks Patient is a 70-year-old male with chronic lymphedema with bilateral venous stasis ulcerations. CTA was negative for any occlusions. MRI was negative for osteomyelitis. He also has diabetes. Nurses change his dressings last evening Past Med/Surg/Social History Past Medical History PFSH Reviewed: Yes Endocrine: REPORTS HX OF: Diabetes mellitus Cardiovascular: REPORTS HX OF: Heart failure Genitourinary: REPORTS HX OF: Kidney disease Social History Smoking Status: Former Smoker Review of Systems Cardiovascular: COMPLAINS OF: Swelling legs / ankles Integumentary: COMPLAINS OF: Slow to heal after cuts Neurological: COMPLAINS OF: Numbness/tingling, Difficulty with balance Objective Vital Signs Vital Signs Date Time Temp Pulse Resp B/P Pulse Ox O2 Delivery O2 Flow Rate FiO2 06/02/16 08:08 98.3 59 16 132/60 97 06/02/16 04:00 98.0 73 18 128/89 98 06/02/16 00:00 98.8 62 18 119/58 96 06/01/16 20:00 97.1 65 17 122/60 97 06/01/16 18:30 18 06/01/16 16:00 98.3 60 20 105/58 99 06/01/16 12:00 98.0 68 20 112/83 96 Coded Allergies: *MDRO Multi-Drug Resistant Organism (Verified Adverse Reaction, Unknown, ) MRSA (leg wound) - 06/2015, 05/28/16; MRSA (foot) - 08/2015,10/2015; MRSA (blood)-05/28/16 Tetracycline (Verified Adverse Reaction, Unknown, 11/21/15) THRUSH Medications and IVs Current Medications Piperacillin Sod/ Tazobactam Sod 100 ml @ 200 mls/hr ONCE STAT IV Last administered on 05/28/16 14:01; Start 05/28/16 at 10:54; Stop 05/28/16 at 11:24 ; Status DC Vancomycin HCl 1000 mg/Sodium Chloride 250 ml @ 250 mls/hr ONCE STAT IV Last administered on 05/28/16 14:02; Start 05/28/16 at 10:54; Stop 05/28/16 at 12:05 ; Status DC Sodium Chloride 1,000 ml @ 42 mls/hr [id number] IV Last administered on 06/01/16 20:22; Start 05/28/16 at 14:00 Piperacillin Sod/ Tazobactam Sod (Zosyn 4.5 Gm Premix) 100 ml @ 200 mls/hr Q6H IV Last administered on 06/02/16 08:58; Start 05/28/16 at 20:00 Docusate Sodium (Colace) 100 mg BID PO Last administered on 05/31/16 08:55; Start 05/28/16 at 21:00 Lisinopril (Prinivil) 20 mg DAILY PO Last administered on 06/02/16 08:58; Start 05/29/16 at 09:00 Methadone HCl (Dolophine) 10 mg Q12HR PO ; Start 05/28/16 at 21:00; Stop at 21:00; Status DC Warfarin Sodium (Coumadin) 7.5 mg SuTuWeFrSa PO ; Start 05/29/16 at 14:30; Status UNV Warfarin Sodium (Coumadin) 10 mg STAT ONCE PO Last administered on 05/28/16 23:00; Start 05/28/16 at 23:00; Stop 05/28/16 at 23:01; Status DC Ferrous Sulfate (Ferrous Sulfate) 325 mg BID PO Last administered on 06/02/16 08:57; Start 05/28/16 at 21:00 Non-Formulary Medication 600 mg TID PO Neuropathy; Start 05/28/16 at 18:00; Status UNV Pravastatin Sodium (Pravachol) 80 mg HS PO Last administered on 06/01/16 21:03 ; Start 05/28/16 at 21:00 Gabapentin (Neurontin) 600 mg TID PO Last administered on 06/02/16 08:57; Start 05/28/16 at 18:00 Lisinopril (Prinivil) 20 mg DAILY PO ; Start 05/29/16 at 09:00; Status UNV Warfarin Sodium (Coumadin) 7.5 mg SuMoTuWeFrSa PO Last administered on 16:23; Start 05/29/16 at 16:00; Stop 05/29/16 at 21:20; Status DC Warfarin Sodium (Coumadin) 10 mg MOTH PO ; Start 05/28/16 at 15:00; Status UNV Non-Formulary Medication 40 mg HS PO CM; Start 05/28/16 at 21:00; Status UNV Methadone HCl (Dolophine) 5 mg TID PO Last administered on 06/02/16 08:58; Start 05/28/16 at 18:00 Miscellaneous (Pill Splitter) 1 ea UNSCH PRN OTHER SEE LABEL COMMENTS; Start at 15:45 Hydromorphone HCl (Dilaudid Pf Inj) 0.5 mg Q4H PRN IV PUSH PAIN SCALE 4 TO 10; Start 05/28/16 at 17:15; Stop 05/28/16 at 17:15; Status DC Hydromorphone HCl (Dilaudid Pf Inj) 0.25 mg Q4H PRN IV PUSH PAIN SCALE 4 TO 10 Last administered on 05/29/16 09:31; Start 05/28/16 at 17:15; Stop 05/29/16 at 18:01; Status DC Warfarin Sodium (Coumadin) 10 mg MoTh PO ; Start 05/31/16 at 16:00; Status Cancel Miscellaneous Information ALL NURSING DEPARTME... UNSCH PRN XX SEE LABEL COMMENTS; Start 05/28/16 at 23:00; Stop 05/29/16 at 22:59; Status DC Patient Medication Teaching 1 1 ONCE ONCE XX Last administered on 05/28/16 16 :00; Start 05/28/16 at 16:00; Stop 05/28/16 at 22:55; Status DC Pharmacy Profile Note (Vancomycin Consult Pharmacy) 0 ml @ 0 mls/hr UNSCH OTHER ; Start 05/29/16 at 10:00 Gadodiamide 30 ml 30 ml STK-MED ONCE IV Last administered on 05/29/16 11:43; Start 05/29/16 at 11:43; Stop 05/29/16 at 11:44; Status DC Vancomycin HCl/ Sodium Chloride (Vancomycin Inj/ NS 500 ml Inj) 520 ml @ 250 mls/hr Q12H IV Last administered on 05/30/16 12:02; Start 05/29/16 at 13:00; Stop 05/31/16 at 08:46; Status DC Miscellaneous Information SPECIFIC LAB TO BE DRAWN:VANCOMYCIN TROUGH DATE TO... ONCE ONCE XX ; Start 05/31/16 at 12:45; Stop 05/31/16 at 12:46; Status Cancel Iohexol (Omnipaque 350 Inj) 95 ml STK-MED ONCE IV Last administered on 15:04; Start 05/29/16 at 15:04; Stop 05/29/16 at 15:05; Status DC Hydromorphone HCl (Dilaudid Pf Inj) 0.5 mg Q4H PRN IV PUSH PAIN SCALE 4 TO 10 Last administered on 06/01/16 21:15; Start 05/29/16 at 21:15 Acetaminophen (Tylenol) 650 mg ONCE ONCE PO Last administered on 05/30/16 00: 14; Start 05/30/16 at 00:15; Stop 05/30/16 at 00:16; Status DC Diphenhydramine HCl (Benadryl) 50 mg ONCE ONCE PO Last administered on 00:14; Start 05/30/16 at 00:15; Stop 05/30/16 at 00:16; Status DC Gadodiamide (Omniscan Pf Inj) 30 ml STK-MED ONCE IV Last administered on 09:46; Start 05/30/16 at 09:46; Stop 05/30/16 at 09:47; Status DC Acetaminophen 650 mg 650 mg Q4H PRN PO TEMPERATURE > 100.5 F Last administered on 05/31/16 08:54; Start 05/30/16 at 10:15 Vancomycin HCl/ Sodium Chloride (Vancomycin Inj/ NS 500 ml Inj) 520 ml @ 250 mls/hr Q12H IV Last administered on 06/01/16 22:39; Start 05/31/16 at 11:00 Miscellaneous Information SPECIFIC LAB TO BE DRAWN:VANCOMYCIN TROUGH DATE TO... ONCE ONCE XX ; Start 06/02/16 at 10:45; Stop 06/02/16 at 10:46; Status DC Lactobacillus Acidophilus (Lactinex) 1 tab TID PO Last administered on 13:18; Start 05/31/16 at 13:00; Stop 06/01/16 at 15:34; Status DC Pantoprazole Sodium (Protonix) 40 mg DAILY PO Last administered on 06/02/16 08: 57; Start 05/31/16 at 10:15 Enoxaparin Sodium (Lovenox Inj) 30 mg Q24H SQ Last administered on 06/01/16 15: 45; Start 06/01/16 at 15:00 Lactobacillus Acidophilus (Lactinex Pkt) 1 gm TID PO Last administered on 08:58; Start 06/01/16 at 18:00 Other Results Laboratory Tests Test 06/01/16 05:43 White Blood Count 7.7 TH/MM3 Red Blood Count 2.79 MIL/MM3 Hemoglobin 7.3 GM/DL Hematocrit 21.9 % Mean Corpuscular Volume 78.4 FL Mean Corpuscular Hemoglobin 26.1 PG Mean Corpuscular Hemoglobin 33.2 % Concent Red Cell Distribution Width 17.4 % Platelet Count 205 TH/MM3 Mean Platelet Volume 7.9 FL Neutrophils (%) (Auto) 73.4 % Lymphocytes (%) (Auto) 12.0 % Monocytes (%) (Auto) 10.6 % Eosinophils (%) (Auto) 3.4 % Basophils (%) (Auto) 0.6 % Neutrophils # (Auto) 5.6 TH/MM3 Lymphocytes # (Auto) 0.9 TH/MM3 Monocytes # (Auto) 0.8 TH/MM3 Eosinophils # (Auto) 0.3 TH/MM3 Basophils # (Auto) 0.0 TH/MM3 CBC Comment DIFF FINAL Differential Comment Laboratory Tests Test 06/01/16 05:43 Sodium Level 138 MEQ/L Potassium Level 3.5 MEQ/L Chloride Level 102 MEQ/L Carbon Dioxide Level 29.7 MEQ/L Anion Gap 6 MEQ/L Blood Urea Nitrogen 26 MG/DL Creatinine 1.44 MG/DL Estimat Glomerular Filtration 49 ML/MIN Rate Random Glucose 159 MG/DL Calcium Level 7.9 MG/DL Microbiology Date/Time Procedure Status Source Growth 05/31/16 06:20 Aerobic Blood Culture - Preliminary Resulted Blood Peripheral NO GROWTH IN 1 DAY 05/31/16 06:20 Anaerobic Blood Culture - Preliminary Resulted Blood Peripheral NO GROWTH IN 1 DAY 05/31/16 11:40 Stool Occult Blood (YASMINE) - Final Complete Stool Stool HEMOCCULT NEGATIVE 06/01/16 22:53 Aerobic Blood Culture Received Blood Peripheral Pending 06/01/16 22:53 Anaerobic Blood Culture Received Blood Peripheral Pending 06/01/16 22:57 Aerobic Blood Culture Received Blood Peripheral Pending 06/01/16 22:57 Anaerobic Blood Culture Received Blood Peripheral Pending Exam-Podiatry Constitutional General appearance: comfortable Nutritional status: overweight Orientation: alert and oriented x3 Dermatological Exam Skin Temp - Right: Within Normal Limits Skin Texture - Right: Abnormal Skin Elasticity - Right: Decreased Skin Tugor - Right: Abnormal Hair Growth - Right: Absent Pigmentation - Right: Within Normal Limits Skin Temp - Left: Within Normal Limits Skin Texture - Left: Abnormal Skin Elasticity - Left: Abnormal Skin Tugor - Left: Abnormal Hair Growth - Left: Absent Pigmentation - Left: Within Normal Limits Present on right: Eczematous Skin Present on left: Eczematous Skin Foot Massess Found: Type, Size Multiple lower extremity venous stasis ulcerations with history of MRSA growth Vascular/Lymphatic Exam R Dorsails Pedis: Doppler L Dorsails Pedis: Doppler R Posterior Tibial: Doppler L Posterior Tibial: Doppler Neurologic Exam Present on right: Tingling Present on left: Tingling Musculoskeletal Exam Details Kirk amputation right foot Muscle Strength Dorsiflexion (Right): Normal Plantarflexion (Right): Normal Inversion (Right): Normal Eversion (Right): Normal Digital (Right): Normal Dorsiflexion (Left): Normal Plantarflexion (Left): Normal Inversion (Left): Normal Eversion (Left): Normal Digital (Left): Normal Foot Range of Motion Dorsiflexion (Right): Normal Plantarflexion (Right): Normal Inversion (Right): Normal Eversion (Right): Normal Digital (Right): Normal Dorsiflexion (Left): Normal Plantarflexion (Left): Normal Inversion (Left): Normal Eversion (Left): Normal Digital (Left): Normal Extremities Edema: Left lower extremity: 3+, pitting, foot, ankle, leg Right lower extremity: 3+, pitting, foot, ankle, leg Assessment & Plan Diagnosis: (1) Chronic lymphangitis Status: Chronic (2) Cellulitis of both lower extremities Status: Acute (3) Diabetic foot ulcers Status: Chronic (4) Lymphedema of lower extremity Status: Chronic (5) Venous stasis ulcers of both lower extremities Status: Chronic (6) Diabetic ulcer of both feet associated with diabetes mellitus due to underlying condition Status: Chronic A/P PLAN: Continue Optifoam gentle AG dressings every other day. Continue Shawn bandages for compression. Once patient is discharged she can follow with me in the wound center [facility] Discussed with Dr. Smith and nurse Problem Qualifiers (1) Diabetic foot ulcers: Qualified Code: E11.621 - Diabetic ulcer of both feet associated with type 2 diabetes mellitus (2) Lymphedema of lower extremity: Qualified Code: I89.0 - Lymphedema of both lower extremities Chuck Hernandez DPM Jun 02, 2016 11:13
[2016-06-02] MEDS: VANCOMYCIN INJ 2,000 MG in SODIUM CHLORID 0.9% 500 ML INJ 500 ML IV SCH (11:34)
[2016-06-02 12:00] VITALS: BP 143/65; PULSE 67; RESP 18; TEMP 98.3; O2SAT 96
[2016-06-02] MEDS: ENOXAPARIN SODIUM 30 MG/0.3 ML SYRINGE SQ SCH (13:43)
[2016-06-02 16:00] VITALS: BP 131/63; PULSE 56; RESP 18; TEMP 98.3; O2SAT 98
[2016-06-02 20:00] VITALS: BP 132/62; PULSE 70; RESP 18; TEMP 98.2; O2SAT 97
[2016-06-02] MEDS: PRAVASTATIN SOD 80 MG TAB PO SCH (21:20)
[2016-06-02] MEDS: SODIUM CHLOR 0.9% 1000 ML INJ 1,000 ML IV SCH (21:21)
[2016-06-03] VITALS: BP 121/87; PULSE 75; RESP 18; TEMP 98.2; O2SAT 94
[2016-06-03 04:00] VITALS: BP 127/58; PULSE 62; RESP 18; TEMP 98.2; O2SAT 96
[2016-06-03 08:00] VITALS: BP 159/80; PULSE 63; RESP 16; TEMP 97.6; O2SAT 98
[2016-06-03] MEDS: GABAPENTIN 300 MG CAP PO SCH ×3 (09:42→18:03)
[2016-06-03] MEDS: FERROUS SULFATE 325 MG (65 MG ELEMENTAL IRON) TAB PO SCH ×2 (09:42→20:25)
[2016-06-03] MEDS: LISINOPRIL 20 MG TAB PO SCH (09:42)
[2016-06-03] MEDS: LACTOBACILLUS ACIDOPHILUS 1 GM PACKET PO SCH ×3 (09:42→18:03)
[2016-06-03] MEDS: METHADONE HCL 10 MG TAB PO SCH ×3 (09:42→18:03)
[2016-06-03] MEDS: PANTOPRAZOLE SOD 40 MG DELAYED RELEASE TAB PO SCH (09:42)
--- NOTE | 2016-06-03 11:50 | HHI.PR ---
Subjective Remarks no complains tolerating po well, moving more0 "trying" Objective Vitals Vital Signs Date Time Temp Pulse Resp B/P Pulse Ox O2 Delivery O2 Flow Rate FiO2 06/03/16 08:00 97.6 63 16 159/80 98 06/03/16 04:00 98.2 62 18 127/58 96 06/03/16 00:00 98.2 75 18 121/87 94 06/02/16 20:00 98.2 70 18 132/62 97 06/02/16 16:00 98.3 56 18 131/63 98 06/02/16 12:00 98.3 67 18 143/65 96 I/O 06/02/16 06/02/16 06/02/16 06/03/16 06/03/16 06/03/16 07:00 15:00 23:00 07:00 15:00 23:00 Intake Total 840 ml 1733 ml 418 ml 468 ml Output Total 600 ml 2600 ml 500 ml 1150 ml Balance 240 ml -867 ml -82 ml -682 ml Intake Oral 480 ml 780 ml 240 ml 120 ml IV Total 360 ml 953 ml 178 ml 348 ml Output Urine Total 600 ml 2600 ml 500 ml 1150 ml # Bowel Movements 0 2 1 2 Result Diagram: 06/01/16 0543 06/03/16 0805 Imaging Last Impressions Hip MRI 05/30/16 0000 Signed Impressions: Service Date/Time: Monday, May 30, 2016 09:01 - CONCLUSION: 1. Mild osteoarthritis of the bilateral hips. No acute findings at the right hip joint. Specifically no fracture or joint effusion. 2. External iliac adenopathy and mild inguinal adenopathy as above. Salomón Morris MD Lower Extremity MRI 05/29/16 0000 Signed Impressions: Service Date/Time: Sunday, May 29, 2016 09:55 - CONCLUSION: Numerous open wounds with soft tissue defects particularly along the medial aspect of the tibial shaft. The periosteum is markedly thickened in that region likely multiple chronic areas of infection. Does not have the typical appearance of an acute osteomyelitis, it appears much more chronic. There is very little skin overlying the bone. Low-grade edema throughout the musculature without any deep drainable fluid collections. Manuel Encarnacion MD Foot MRI 05/29/16 0000 Signed Impressions: Service Date/Time: Sunday, May 29, 2016 09:55 - CONCLUSION: Very impressive soft tissue swelling across the foot. I do not see any underlying marrow edema or marrow placement to suggest ongoing osteomyelitis. There is some impressive bony edema in the hind foot with a marked hind foot valgus alignment. No open wound or obvious marrow placing process to suggest osteomyelitis. Manuel Encarnacion MD Aorta w/Runoff CTA 05/29/16 0000 Signed Impressions: Service Date/Time: Sunday, May 29, 2016 14:49 - CONCLUSION: 1. No evidence of vascular disease to the level of the knees with nondiagnostic evaluation in the infrapopliteal vessels. 2. Possible mass measuring 5 cm in segment 6 of the liver. MRI is recommended for further evaluation if clinically indicated. Jerome Waterman MD Lower Extremity Ultrasound 05/28/16 0000 Signed Impressions: Service Date/Time: Saturday, May 28, 2016 12:24 - CONCLUSION: Negative for deep venous thrombosis. Dez Bell MD FACR Objective Remarks GENERAL: Obese, a x ox 2 HEAD: Atraumatic. Normocephalic. EYES: Pupils equal round and reactive. NECK: Trachea midline. No JVD or lymphadenopathy. Supple, nontender, no meningeal signs. CARDIOVASCULAR: Regular rate and rhythm without murmurs, gallops, or rubs. RESPIRATORY: Clear to auscultation. Breath sounds equal bilaterally. No wheezes , rales, or rhonchi. GASTROINTESTINAL: Abdomen soft, non-tender, flabby. No guarding. SKIN :LE- both legs with dressing in place, moving toes more freely, swelling decreased NEUROLOGICAL: Awake and alert. Cranial nerves II through XII intact. moves all extremities spontaneously - cautiously A/P Assessment and Plan 70-year-old male presenting with MRSA sepsis due to Severe Extensive Cellulitis of both LE - Right> Left with chronic non healing ulcers with underlying chronic lymphedema Dr. Staley CTA runoff-- no obstruction IV Dilaudid prn for pain. on methadone On Vancomycin..DC zosyn as per ID notes 2/3 Severe right lower extremity/hip - no fracture- slightly better movement pain better Doppler ultrasound of the right lower extremity - negative for DVT. MRI of the leg/foot- shows soft tissue swelling MRI of the right hip- no fracture PT ff acute kidney injury.- renal functions stabilizing, non oliguric likely with underlying CKI on gentle hydration with normal saline history of chronic pain/neuropathy. Continue on methadone 5 mg tid Continue on Percocet 5/325 mg q 6 Continue on gabapentin 600 mg 3 times a day continue on his bowel regimen history of chronic atrial fibrillation- in SR, hyperlipidemia, hypertension on coumadin as OP- hold with drop in Hemoglobin Continue Zocor 40 mg at bedtime , Lisinopril 10 mg daily Acute anemia on top of anemia of chronic disease S/P 1 unit PRBC 05/29 ff H and H and H- stabilizing negative guiac stools. PPI Diarrhea-- C diff negative monitor BM Lactinex Lovenox for DVT prophylaxis Dany Jean MD Jun 03, 2016 11:50
[2016-06-03 12:00] VITALS: BP 162/67; PULSE 60; RESP 16; TEMP 97.7; O2SAT 98
[2016-06-03] MEDS: ENOXAPARIN SODIUM 30 MG/0.3 ML SYRINGE SQ SCH (14:37)
[2016-06-03 16:00] VITALS: BP 143/65; PULSE 65; RESP 16; TEMP 97.9; O2SAT 100
--- NOTE | 2016-06-03 17:34 | HHI.IDPN ---
Note Infectious Disease Note Patient feels better. Says he still has diarrhea. Alert. Temp lower. No nausea. No pain in r. hip. Stool c. diff neg. PAST MEDICAL HISTORY 1. Diabetes mellitus insulin requiring 2. Diabetic neuropathy 3. Hypertension 4. Atrial fibrillation 5. Hyperlipidemia 6. Anemia 7. History of right great toe amputation ALLERGIES TETRACYCLINE MEDICATIONS Vancomycin. OBJECTIVE: Vital Signs Date Time Temp Pulse Resp B/P Pulse Ox O2 Delivery O2 Flow Rate FiO2 06/03/16 16:00 97.9 65 16 143/65 100 06/03/16 12:00 97.7 60 16 162/67 98 06/03/16 08:00 97.6 63 16 159/80 98 06/03/16 04:00 98.2 62 18 127/58 96 06/03/16 00:00 98.2 75 18 121/87 94 06/02/16 20:00 98.2 70 18 132/62 97 06/02/16 06/02/16 06/03/16 15:00 23:00 07:00 Intake Total 1733 ml 418 ml 468 ml Output Total 2600 ml 500 ml 1150 ml Balance -867 ml -82 ml -682 ml Intake Oral 780 ml 240 ml 120 ml IV Total 953 ml 178 ml 348 ml Output Urine Total 2600 ml 500 ml 1150 ml # Bowel Movements 2 1 2 Laboratory Tests Test 06/03/16 08:05 Creatinine 1.05 MG/DL Estimat Glomerular Filtration 70 ML/MIN Rate Microbiology Date/Time Procedure Status Source Growth 05/28/16 10:30 Aerobic Blood Culture - Final Complete Blood Peripheral S. Aureus Mrsa 05/28/16 10:30 Anaerobic Blood Culture - Final Complete S. Aureus Mrsa 05/28/16 10:40 Aerobic Blood Culture - Preliminary Resulted Blood Peripheral S. Aureus Mrsa 05/28/16 10:40 Anaerobic Blood Culture - Preliminary Resulted S. Aureus Mrsa 05/28/16 10:45 Gram Stain - Final Complete Wound Leg 05/28/16 10:45 Wound Culture - Final Complete S. Aureus Mrsa PHYSICAL EXAMINATION GENERAL: No acute distress. HEENT: No icterus. No visible lesions. NECK: Supple. No adenopathy. LUNGS: Clear to auscultation. HEART: A 2/6 systolic ejection murmur at the left upper sternal border. Also at RLSB. ABDOMEN: Bowel sounds present, soft. Non tender. EXTREMITIES: Both legs have swelling and chronic ulcerations and erythema. Ulcers at the anterior tibias have green creamy sloth. NEUROLOGIC: Nonfocal. SKIN: No rash. PSYCH: Calm. Pleasant affect. IMPRESSION 1. Bilateral lower extremity cellulitis, right greater than left. 2. Chronic venous stasis / Diabetic ulcers - infected with MRSA. 3. Bacteremia - MRSA. Source being the leg infected wounds. Appears to be responding to antibiotics. 4. Fever low grade. 5. Diarrhea - c. diff neg. RECOMMENDATIONS 1. Continue Vancomycin. On hold for high level. Pharmacy monitoring. 2. Follow repeat blood culture. 3. Continue Lactinex. 4. Follow clinical status. Kevin Staley MD Jun 03, 2016 17:34
[2016-06-03 20:00] VITALS: BP 142/67; PULSE 65; RESP 18; TEMP 98; O2SAT 98
[2016-06-03] MEDS: PRAVASTATIN SOD 80 MG TAB PO SCH (20:25)
[2016-06-03] MEDS: SODIUM CHLOR 0.9% 1000 ML INJ 1,000 ML IV SCH (20:26)
[2016-06-04] VITALS: BP 158/88; PULSE 59; RESP 18; TEMP 96.4; O2SAT 95
[2016-06-04 04:00] VITALS: BP 143/67; PULSE 60; RESP 18; TEMP 97; O2SAT 90
[2016-06-04 08:00] VITALS: BP 158/72; PULSE 63; RESP 16; TEMP 97.5; O2SAT 99
[2016-06-04] MEDS: LISINOPRIL 20 MG TAB PO SCH (08:21)
[2016-06-04] MEDS: LACTOBACILLUS ACIDOPHILUS 1 GM PACKET PO SCH ×3 (08:21→16:42)
[2016-06-04] MEDS: GABAPENTIN 300 MG CAP PO SCH ×3 (08:22→16:41)
[2016-06-04] MEDS: METHADONE HCL 10 MG TAB PO SCH ×3 (08:22→16:42)
[2016-06-04] MEDS: FERROUS SULFATE 325 MG (65 MG ELEMENTAL IRON) TAB PO SCH ×2 (08:22→20:42)
[2016-06-04] MEDS: PANTOPRAZOLE SOD 40 MG DELAYED RELEASE TAB PO SCH (08:22)
[2016-06-04 12:00] VITALS: BP 135/60; PULSE 70; RESP 16; TEMP 98; O2SAT 97
[2016-06-04] MEDS: VANCOMYCIN INJ 1,750 MG in SODIUM CHLORID 0.9% 500 ML INJ 500 ML IV SCH (12:08)
[2016-06-04] MEDS: ENOXAPARIN SODIUM 30 MG/0.3 ML SYRINGE SQ SCH (15:16)
--- NOTE | 2016-06-04 15:51 | HHI.PR ---
Subjective Remarks diarrhea persists otherwise overall feeling better no abdominal pain Objective Vitals Vital Signs Date Time Temp Pulse Resp B/P Pulse Ox O2 Delivery O2 Flow Rate FiO2 06/04/16 12:00 98.0 70 16 135/60 97 06/04/16 09:42 16 06/04/16 08:00 97.5 63 16 158/72 99 06/04/16 04:00 97.0 60 18 143/67 90 06/04/16 00:00 96.4 59 18 158/88 95 06/03/16 20:00 98.0 65 18 142/67 98 06/03/16 16:00 97.9 65 16 143/65 100 I/O 06/03/16 06/03/16 06/03/16 06/04/16 06/04/16 06/04/16 07:00 15:00 23:00 07:00 15:00 23:00 Intake Total 468 ml 483 ml 299 ml 1095 ml 360 ml 788 ml Output Total 1150 ml 1300 ml 500 ml 950 ml 1070 ml Balance -682 ml -817 ml -201 ml 145 ml -710 ml 788 ml Intake Oral 120 ml 50 ml 100 ml 720 ml 360 ml IV Total 348 ml 433 ml 199 ml 375 ml 788 ml Output Urine Total 1150 ml 1300 ml 500 ml 950 ml 1070 ml # Bowel Movements 2 1 1 1 Result Diagram: 06/01/16 0543 06/03/16 0805 Imaging Last Impressions Hip MRI 05/30/16 0000 Signed Impressions: Service Date/Time: Monday, May 30, 2016 09:01 - CONCLUSION: 1. Mild osteoarthritis of the bilateral hips. No acute findings at the right hip joint. Specifically no fracture or joint effusion. 2. External iliac adenopathy and mild inguinal adenopathy as above. Salomón Morris MD Lower Extremity MRI 05/29/16 0000 Signed Impressions: Service Date/Time: Sunday, May 29, 2016 09:55 - CONCLUSION: Numerous open wounds with soft tissue defects particularly along the medial aspect of the tibial shaft. The periosteum is markedly thickened in that region likely multiple chronic areas of infection. Does not have the typical appearance of an acute osteomyelitis, it appears much more chronic. There is very little skin overlying the bone. Low-grade edema throughout the musculature without any deep drainable fluid collections. Manuel Encarnacion MD Foot MRI 05/29/16 0000 Signed Impressions: Service Date/Time: Sunday, May 29, 2016 09:55 - CONCLUSION: Very impressive soft tissue swelling across the foot. I do not see any underlying marrow edema or marrow placement to suggest ongoing osteomyelitis. There is some impressive bony edema in the hind foot with a marked hind foot valgus alignment. No open wound or obvious marrow placing process to suggest osteomyelitis. Manuel Encarnacion MD Aorta w/Runoff CTA 05/29/16 0000 Signed Impressions: Service Date/Time: Sunday, May 29, 2016 14:49 - CONCLUSION: 1. No evidence of vascular disease to the level of the knees with nondiagnostic evaluation in the infrapopliteal vessels. 2. Possible mass measuring 5 cm in segment 6 of the liver. MRI is recommended for further evaluation if clinically indicated. Jerome Waterman MD Lower Extremity Ultrasound 05/28/16 0000 Signed Impressions: Service Date/Time: Saturday, May 28, 2016 12:24 - CONCLUSION: Negative for deep venous thrombosis. Dez Bell MD FACR Objective Remarks GENERAL: Obese, a x ox 2 HEAD: Atraumatic. Normocephalic. EYES: Pupils equal round and reactive. NECK: Trachea midline. No JVD or lymphadenopathy. Supple, nontender, no meningeal signs. CARDIOVASCULAR: Regular rate and rhythm without murmurs, gallops, or rubs. RESPIRATORY: Clear to auscultation. Breath sounds equal bilaterally. No wheezes , rales, or rhonchi. GASTROINTESTINAL: Abdomen soft, non-tender, flabby. No guarding. SKIN :LE- both legs with dressing in place, moving toes more freely, swelling decreased NEUROLOGICAL: Awake and alert. Cranial nerves II through XII intact. moves all extremities spontaneously - cautiously A/P Assessment and Plan 70-year-old male presenting with MRSA sepsis due to Severe Extensive Cellulitis of both LE - Right> Left with chronic non healing ulcers with underlying chronic lymphedema- MRSA Dr. Staley CTA runoff-- no obstruction IV Dilaudid prn for pain. on methadone On Vancomycin. Severe right lower extremity/hip - no fracture- slightly better movement pain better Doppler ultrasound of the right lower extremity - negative for DVT. MRI of the leg/foot- shows soft tissue swelling MRI of the right hip- no fracture PT ff acute kidney injury.- renal functions stabilizing, non oliguric likely with underlying CKI history of chronic pain/neuropathy. Continue on methadone 5 mg tid Continue on Percocet 5/325 mg q 6 Continue on gabapentin 600 mg 3 times a day continue on his bowel regimen history of chronic atrial fibrillation- in SR, hyperlipidemia, hypertension on coumadin as OP- hold with drop in Hemoglobin Continue Zocor 40 mg at bedtime , Lisinopril 10 mg daily Acute anemia on top of anemia of chronic disease S/P 1 unit PRBC 05/29 ff H and H and H- stabilizing negative guiac stools. PPI Diarrhea-- C diff negative monitor BM continue Lactinex Lovenox for DVT prophylaxis Dany Jean MD Jun 04, 2016 15:51
[2016-06-04 16:00] VITALS: BP 142/69; PULSE 57; RESP 16; TEMP 97.8; O2SAT 99
[2016-06-04] MEDS ORDERED: LOPERAMIDE HCL 2 MG CAP PO ONE (16:00)
[2016-06-04] MEDS: SODIUM CHLOR 0.9% 1000 ML INJ 1,000 ML IV SCH (16:40)
[2016-06-04 20:00] VITALS: BP 137/63; PULSE 73; RESP 20; TEMP 97.7; O2SAT 97
[2016-06-04] MEDS: PRAVASTATIN SOD 80 MG TAB PO SCH (20:43)
[2016-06-05] VITALS: BP 135/65; PULSE 70; RESP 20; TEMP 97.9; O2SAT 95
[2016-06-05 04:00] VITALS: BP 144/69; PULSE 66; RESP 20; TEMP 97.9; O2SAT 94
[2016-06-05 08:00] VITALS: BP 168/75; PULSE 73; RESP 20; TEMP 97; O2SAT 96
[2016-06-05] MEDS: GABAPENTIN 300 MG CAP PO SCH ×3 (08:12→17:31)
[2016-06-05] MEDS: FERROUS SULFATE 325 MG (65 MG ELEMENTAL IRON) TAB PO SCH ×2 (08:12→21:53)
[2016-06-05] MEDS: LISINOPRIL 20 MG TAB PO SCH (08:12)
[2016-06-05] MEDS: METHADONE HCL 10 MG TAB PO SCH ×3 (08:13→17:32)
[2016-06-05] MEDS: PANTOPRAZOLE SOD 40 MG DELAYED RELEASE TAB PO SCH (08:13)
[2016-06-05] MEDS: LACTOBACILLUS ACIDOPHILUS 1 GM PACKET PO SCH ×3 (08:14→17:32)
[2016-06-05] MEDS: VANCOMYCIN INJ 1,750 MG in SODIUM CHLORID 0.9% 500 ML INJ 500 ML IV SCH (09:56)
--- NOTE | 2016-06-05 11:53 | HHI.PR ---
Subjective Remarks Follow-up visit diarrhea, bilateral lower extremity cellulitis MRSA. Patient seen today. Reports he is doing pressure requesting to be moving around and increasing his activities. States he continues to have some diarrhea, last one was last night, but he thinks this can have one during examination. Also complaining of not able to chew his food secondary to dentition. Otherwise, denies fevers, chills, nausea, vomiting. Denies abdominal cramping, hematemesis. Denies shortness of breath/dyspnea. Denies chest pain, headache, palpitations, dizziness. Objective Vitals Vital Signs Date Time Temp Pulse Resp B/P Pulse Ox O2 Delivery O2 Flow Rate FiO2 06/05/16 08:00 97.0 73 20 168/75 96 06/05/16 04:00 97.9 66 20 144/69 94 06/05/16 00:00 97.9 70 20 135/65 95 06/04/16 20:00 97.7 73 20 137/63 97 06/04/16 16:00 97.8 57 16 142/69 99 06/04/16 12:00 98.0 70 16 135/60 97 I/O 06/04/16 06/04/16 06/04/16 06/05/16 06/05/16 06/05/16 07:00 15:00 23:00 07:00 15:00 23:00 Intake Total 1095 ml 360 ml 1376 ml 818 ml Output Total 950 ml 1070 ml 1300 ml 1400 ml Balance 145 ml -710 ml 76 ml -582 ml Intake Oral 720 ml 360 ml 360 ml 360 ml IV Total 375 ml 1016 ml 458 ml Output Urine Total 950 ml 1070 ml 1300 ml 1400 ml # Bowel Movements 1 1 1 Result Diagram: 06/01/16 0543 06/05/16 0538 Imaging Last Impressions Hip MRI 05/30/16 0000 Signed Impressions: Service Date/Time: Monday, May 30, 2016 09:01 - CONCLUSION: 1. Mild osteoarthritis of the bilateral hips. No acute findings at the right hip joint. Specifically no fracture or joint effusion. 2. External iliac adenopathy and mild inguinal adenopathy as above. Salomón Morris MD Lower Extremity MRI 05/29/16 0000 Signed Impressions: Service Date/Time: Sunday, May 29, 2016 09:55 - CONCLUSION: Numerous open wounds with soft tissue defects particularly along the medial aspect of the tibial shaft. The periosteum is markedly thickened in that region likely multiple chronic areas of infection. Does not have the typical appearance of an acute osteomyelitis, it appears much more chronic. There is very little skin overlying the bone. Low-grade edema throughout the musculature without any deep drainable fluid collections. Manuel Encarnacion MD Foot MRI 05/29/16 0000 Signed Impressions: Service Date/Time: Sunday, May 29, 2016 09:55 - CONCLUSION: Very impressive soft tissue swelling across the foot. I do not see any underlying marrow edema or marrow placement to suggest ongoing osteomyelitis. There is some impressive bony edema in the hind foot with a marked hind foot valgus alignment. No open wound or obvious marrow placing process to suggest osteomyelitis. Manuel Encarnacion MD Aorta w/Runoff CTA 05/29/16 0000 Signed Impressions: Service Date/Time: Sunday, May 29, 2016 14:49 - CONCLUSION: 1. No evidence of vascular disease to the level of the knees with nondiagnostic evaluation in the infrapopliteal vessels. 2. Possible mass measuring 5 cm in segment 6 of the liver. MRI is recommended for further evaluation if clinically indicated. Jerome Waterman MD Lower Extremity Ultrasound 05/28/16 0000 Signed Impressions: Service Date/Time: Saturday, May 28, 2016 12:24 - CONCLUSION: Negative for deep venous thrombosis. Dez Bell MD FACR Objective Remarks GENERAL: This is a morbidly obese, well-developed patient, in no apparent distress. HEENT: Normocephalic. Pupils equal round and reactive. Nose without bleeding. Airway patent. NECK: Trachea midline. No JVD. Supple. CARDIOVASCULAR: Regular rate and rhythm without murmurs, gallops, or rubs. RESPIRATORY: Clear to auscultation. Breath sounds equal bilaterally. No wheezes , rales, or rhonchi. GASTROINTESTINAL: Abdomen soft, obese, non-tender, nondistended. Bowel Sounds normoactive x4. MUSCULOSKELETAL: Extremities without clubbing, cyanosis, bilateral lower extremity +1 edema. Bilateral lower extremity with dressing CDI. Diminish sensation to the bilateral foot. Rt foot ulcer dry no drainage. NEUROLOGICAL: Awake and alert. No focal neuro deficit. THORNTON. Normal speech. A/P Problem List: (1) Cellulitis of both lower extremities ICD Code: L03.115 Status: Acute (2) Lymphedema of lower extremity ICD Code: I89.0 Status: Chronic (3) Peripheral neuropathy ICD Code: G62.9 Status: Chronic (4) Cellulitis due to MRSA ICD Code: L03.90 Status: Acute Assessment and Plan 70-year-old male presenting with MRSA sepsis due to Severe Extensive Cellulitis of both LE - Right> Left with chronic non healing ulcers with underlying chronic lymphedema- MRSA Followed by ID CTA runoff-- no obstruction IV Dilaudid prn for pain. on methadone Continue Vancomycin. Severe right lower extremity/hip - no fracture- slightly better movement pain better Doppler ultrasound of the right lower extremity - negative for DVT. MRI of the leg/foot- shows soft tissue swelling MRI of the right hip- no fracture PT/OT. Needs increase activity out of bed to chair ambulation. Acute kidney injury.- renal functions stabilizing, non oliguric likely with underlying CKI - Improved creatinine 0.91 06/05/16 history of chronic pain/neuropathy. Continue on methadone 5 mg tid Continue on Percocet 5/325 mg q 6 Continue on gabapentin 600 mg 3 times a day history of chronic atrial fibrillation- in SR. -on Coumadin as OP- hold with drop in Hemoglobin hyperlipidemia, hypertension Continue pravastatin 40 mg at bedtime , Lisinopril 10 mg daily Acute anemia on top of anemia of chronic disease S/P 1 unit PRBC 05/29 Follow up H and H and H- stabilizing. Coumadin discontinued negative guiac stools. PPI H&H 7.3/21.9 Diarrhea-- C diff negative monitor BM continue Lactinex May give Imodium when necessary Generalized weakness, deconditioning - PT/OT eval and treat - Optimize out of bed to chair and increase activity. Lovenox for DVT prophylaxis Written by Reji Peacock, acting as scribe for Dr. Oconnell on 06/05/16 at 09: 43.The documentation accurately reflects the work performed [id number] by me on 06/05/16 at 0943. Discharge Planning Not ready for [facility] home today. Problem Qualifiers (1) Lymphedema of lower extremity: Qualified Code: I89.0 - Lymphedema of both lower extremities Reji Weldon Jun 05, 2016 11:53 Ivonne Oconnell MD Jun 05, 2016 16:26
[2016-06-05 12:00] VITALS: BP 150/73; PULSE 61; RESP 20; TEMP 97.8; O2SAT 96
[2016-06-05] MEDS: ENOXAPARIN SODIUM 30 MG/0.3 ML SYRINGE SQ SCH (14:16)
[2016-06-05 16:00] VITALS: BP 172/72; PULSE 59; RESP 20; TEMP 97.6; O2SAT 98
[2016-06-05] MEDS ORDERED: LOPERAMIDE HCL 2 MG CAP PO PRN (16:30)
--- NOTE | 2016-06-05 17:09 | HHI.IDPN ---
Note Infectious Disease Note Patient is somnolent. Still has diarrhea. 2 x today. No abdominal pain. Temp lower. No nausea. Blood culture 2/3 has no growth. Stool c. diff neg. PAST MEDICAL HISTORY 1. Diabetes mellitus insulin requiring 2. Diabetic neuropathy 3. Hypertension 4. Atrial fibrillation 5. Hyperlipidemia 6. Anemia 7. History of right great toe amputation ALLERGIES TETRACYCLINE MEDICATIONS Vancomycin. Current Medications Medications (Trade) Dose Ordered Sig/Ina Route PRN Reason Start Time Stop Time Status Last Admin Dose Admin Sodium Chloride (NS 1000 ml Inj) 1,000 ml @ 42 mls/hr [id number] IV 05/28/16 14:00 06/04/16 16:40 Lisinopril (Prinivil) 20 mg DAILY PO 05/29/16 09:00 06/05/16 08:12 Ferrous Sulfate (Ferrous Sulfate) 325 mg BID PO 05/28/16 21:00 06/05/16 08:12 Pravastatin Sodium (Pravachol) 80 mg HS PO 05/28/16 21:00 06/04/16 20:43 Gabapentin (Neurontin) 600 mg TID PO 05/28/16 18:00 06/05/16 12:38 Methadone HCl (Dolophine) 5 mg TID PO 05/28/16 18:00 06/05/16 12:38 Miscellaneous 1 ea 1 ea UNSCH PRN OTHER SEE LABEL COMMENTS 05/28/16 15:45 Pharmacy Profile Note (Vancomycin Consult Pharmacy) 0 ml @ 0 mls/hr UNSCH OTHER 05/29/16 10:00 Hydromorphone HCl (Dilaudid Pf Inj) 0.5 mg Q4H PRN IV PUSH PAIN SCALE 4 TO 10 05/29/16 21:15 06/01/16 21:15 Acetaminophen (Tylenol) 650 mg Q4H PRN PO TEMPERATURE > 100.5 F 05/30/16 10:15 05/31/16 08:54 Pantoprazole Sodium (Protonix) 40 mg DAILY PO 05/31/16 10:15 06/05/16 08:13 Enoxaparin Sodium (Lovenox Inj) 30 mg Q24H SQ 06/01/16 15:00 06/05/16 14:16 Lactobacillus Acidophilus (Lactinex Pkt) 1 gm TID PO 06/01/16 18:00 06/05/16 12:38 Loperamide HCl (Imodium) 2 mg UNSCH PRN PO DIARRHEA 06/05/16 16:30 OBJECTIVE: Vital Signs Date Time Temp Pulse Resp B/P Pulse Ox O2 Delivery O2 Flow Rate FiO2 06/05/16 12:00 97.8 61 20 150/73 96 06/05/16 08:00 97.0 73 20 168/75 96 06/05/16 04:00 97.9 66 20 144/69 94 06/05/16 00:00 97.9 70 20 135/65 95 06/04/16 20:00 97.7 73 20 137/63 97 06/04/16 06/04/16 06/05/16 15:00 23:00 07:00 Intake Total 360 ml 1376 ml 818 ml Output Total 1070 ml 1300 ml 1400 ml Balance -710 ml 76 ml -582 ml Intake Oral 360 ml 360 ml 360 ml IV Total 1016 ml 458 ml Output Urine Total 1070 ml 1300 ml 1400 ml # Bowel Movements 1 1 Laboratory Tests Test 06/05/16 05:38 Creatinine 0.91 MG/DL Estimat Glomerular Filtration 83 ML/MIN Rate Microbiology Date/Time Procedure Status Source Growth 05/28/16 10:30 Aerobic Blood Culture - Final Complete Blood Peripheral S. Aureus Mrsa 05/28/16 10:30 Anaerobic Blood Culture - Final Complete S. Aureus Mrsa 05/28/16 10:40 Aerobic Blood Culture - Preliminary Resulted Blood Peripheral S. Aureus Mrsa 05/28/16 10:40 Anaerobic Blood Culture - Preliminary Resulted S. Aureus Mrsa 05/28/16 10:45 Gram Stain - Final Complete Wound Leg 05/28/16 10:45 Wound Culture - Final Complete S. Aureus Mrsa PHYSICAL EXAMINATION GENERAL: No acute distress. HEENT: No icterus. No visible lesions. NECK: Supple. No adenopathy. LUNGS: Clear to auscultation. HEART: 2/6 systolic ejection murmur at the left upper sternal border and RLSB. ABDOMEN: Bowel sounds present, soft. Non tender. EXTREMITIES: Both legs have swelling and chronic ulcerations, less erythema. Ulcers at the anterior tibias. NEUROLOGIC: Nonfocal. SKIN: No rash. PSYCH: Calm. Pleasant affect. IMPRESSION 1. Bilateral lower extremity cellulitis, right greater than left. 2. Chronic venous stasis / Diabetic ulcers - infected with MRSA. 3. Bacteremia - MRSA. Source being the leg infected wounds. Appears to be responding to antibiotics. 4. Fever - improved. 5. Diarrhea - c. diff neg. Monitor. RECOMMENDATIONS 1. Continue Vancomycin. Pharmacy dosing. 2. Continue Lactinex and Imodium. 3. Follow clinical status. 4. Follow blood culture until completion tomorrow. Kevin Staley MD Jun 05, 2016 17:09
[2016-06-05 20:00] VITALS: BP 156/69; PULSE 99; RESP 17; TEMP 98.4; O2SAT 94
[2016-06-05] MEDS: PRAVASTATIN SOD 80 MG TAB PO SCH (21:53)
[2016-06-06] VITALS: BP 152/66; PULSE 66; RESP 18; TEMP 97.8; O2SAT 95
[2016-06-06 04:00] VITALS: BP 159/68; PULSE 68; RESP 18; TEMP 97.8; O2SAT 95
[2016-06-06 08:00] VITALS: BP 174/72; PULSE 63; RESP 20; TEMP 97.1; O2SAT 98
[2016-06-06] MEDS: SODIUM CHLOR 0.9% 1000 ML INJ 1,000 ML IV SCH ×2 (09:22→21:17)
[2016-06-06] MEDS: FERROUS SULFATE 325 MG (65 MG ELEMENTAL IRON) TAB PO SCH ×2 (09:22→21:17)
[2016-06-06] MEDS: LISINOPRIL 20 MG TAB PO SCH (09:23)
[2016-06-06] MEDS: GABAPENTIN 300 MG CAP PO SCH ×3 (09:23→17:07)
[2016-06-06] MEDS: METHADONE HCL 10 MG TAB PO SCH ×3 (09:23→17:09)
[2016-06-06] MEDS: PANTOPRAZOLE SOD 40 MG DELAYED RELEASE TAB PO SCH (09:23)
[2016-06-06] MEDS: LACTOBACILLUS ACIDOPHILUS 1 GM PACKET PO SCH ×3 (09:24→17:09)
[2016-06-06 12:00] VITALS: BP 154/69; PULSE 64; RESP 18; TEMP 97.6; O2SAT 98
[2016-06-06] MEDS: ENOXAPARIN SODIUM 30 MG/0.3 ML SYRINGE SQ SCH (15:07)
[2016-06-06] MEDS: VANCOMYCIN INJ 2,000 MG in SODIUM CHLORID 0.9% 500 ML INJ 500 ML IV SCH (15:07)
[2016-06-06 16:00] VITALS: BP 133/60; PULSE 63; RESP 18; TEMP 98.1; O2SAT 97
--- NOTE | 2016-06-06 16:55 | HHI.PR ---
Subjective Remarks Patient reports that he is feeling better. He would prefer to go home but is now open to consider alf facility. No fevers or chills. Objective Vitals Vital Signs Date Time Temp Pulse Resp B/P Pulse Ox O2 Delivery O2 Flow Rate FiO2 06/06/16 12:00 97.6 64 18 154/69 98 06/06/16 08:00 97.1 63 20 174/72 98 06/06/16 04:00 97.8 68 18 159/68 95 06/06/16 00:00 97.8 66 18 152/66 95 06/05/16 20:00 98.4 99 17 156/69 94 I/O 06/05/16 06/05/16 06/05/16 06/06/16 06/06/16 06/06/16 06:59 14:59 22:59 06:59 14:59 22:59 Intake Total 818 ml 1211 ml 838 ml 275 ml 256 ml Output Total 1400 ml 1200 ml 600 ml Balance -582 ml 11 ml 238 ml 275 ml 256 ml Intake Oral 360 ml 840 ml 600 ml IV Total 458 ml 371 ml 238 ml 275 ml 256 ml Output Urine Total 1400 ml 1200 ml 600 ml # Bowel Movements 0 1 Result Diagram: 06/05/16 0538 Imaging Last Impressions Hip MRI 05/30/16 0000 Signed Impressions: Service Date/Time: Monday, May 30, 2016 09:01 - CONCLUSION: 1. Mild osteoarthritis of the bilateral hips. No acute findings at the right hip joint. Specifically no fracture or joint effusion. 2. External iliac adenopathy and mild inguinal adenopathy as above. Salomón Morris MD Lower Extremity MRI 05/29/16 0000 Signed Impressions: Service Date/Time: Sunday, May 29, 2016 09:55 - CONCLUSION: Numerous open wounds with soft tissue defects particularly along the medial aspect of the tibial shaft. The periosteum is markedly thickened in that region likely multiple chronic areas of infection. Does not have the typical appearance of an acute osteomyelitis, it appears much more chronic. There is very little skin overlying the bone. Low-grade edema throughout the musculature without any deep drainable fluid collections. Manuel Encarnacion MD Foot MRI 05/29/16 0000 Signed Impressions: Service Date/Time: Sunday, May 29, 2016 09:55 - CONCLUSION: Very impressive soft tissue swelling across the foot. I do not see any underlying marrow edema or marrow placement to suggest ongoing osteomyelitis. There is some impressive bony edema in the hind foot with a marked hind foot valgus alignment. No open wound or obvious marrow placing process to suggest osteomyelitis. Manuel Encarnacion MD Aorta w/Runoff CTA 05/29/16 0000 Signed Impressions: Service Date/Time: Sunday, May 29, 2016 14:49 - CONCLUSION: 1. No evidence of vascular disease to the level of the knees with nondiagnostic evaluation in the infrapopliteal vessels. 2. Possible mass measuring 5 cm in segment 6 of the liver. MRI is recommended for further evaluation if clinically indicated. Jerome Waterman MD Lower Extremity Ultrasound 05/28/16 0000 Signed Impressions: Service Date/Time: Saturday, May 28, 2016 12:24 - CONCLUSION: Negative for deep venous thrombosis. Dez Bell MD FACR Objective Remarks GENERAL: Morbidly obese male in no apparent distress. HEENT: Normocephalic. Pupils equal round and reactive. Nose without bleeding. Airway patent. NECK: Trachea midline. No JVD. Supple. CARDIOVASCULAR: Regular rate and rhythm without murmurs, gallops, or rubs. RESPIRATORY: Clear to auscultation. Breath sounds equal bilaterally. No wheezes , rales, or rhonchi. GASTROINTESTINAL: Abdomen soft, obese, non-tender, nondistended. Bowel Sounds normoactive x4. MUSCULOSKELETAL: Extremities very dry and stable. +1 bilateral lower extremity edema. The lateral lower extremity dressings are clean and dry. Right foot ulcer is dry. NEUROLOGICAL: Awake and alert. No focal neuro deficit. Normal speech. A/P Problem List: (1) Cellulitis of both lower extremities ICD Code: L03.115 Status: Acute (2) Lymphedema of lower extremity ICD Code: I89.0 Status: Chronic (3) Peripheral neuropathy ICD Code: G62.9 Status: Chronic (4) Cellulitis due to MRSA ICD Code: L03.90 Status: Acute Assessment and Plan 70-year-old male with MRSA sepsis due to Severe Extensive Cellulitis of both LE - Right> Left with chronic non healing ulcers with underlying chronic lymphedema- MRSA Followed by ID CTA runoff-- no obstruction IV Dilaudid prn for pain. on methadone Continue Vancomycin per infectious disease. Severe right lower extremity/hip pain - no fracture- better movement pain better Doppler ultrasound of the right lower extremity - negative for DVT. MRI of the leg/foot- shows soft tissue swelling MRI of the right hip- no fracture PT/OT. Needs increase activity out of bed to chair ambulation. Acute kidney injury.- renal functions stabilizing, non oliguric likely with underlying CKI history of chronic pain/neuropathy. Continue on methadone 5 mg tid Continue on Percocet 5/325 mg q 6 Continue on gabapentin 600 mg 3 times a day history of chronic atrial fibrillation- in SR. -on Coumadin as OP-Coumadin has been on hold due to anemia. Repeat CBC in a.m. and resume Coumadin. hyperlipidemia, hypertension Continue pravastatin 40 mg at bedtime , Lisinopril 10 mg daily Acute anemia on top of anemia of chronic disease S/P 1 unit PRBC 05/29 Follow up H and H and H- stabilizing. Coumadin was held. negative guiac stools. PPI Diarrhea-- C diff negative monitor BM continue Lactinex May give Imodium when necessary Generalized weakness, deconditioning - PT/OT eval and treat - Optimize out of bed to chair and increase activity. Lovenox for DVT prophylaxis Problem Qualifiers (1) Lymphedema of lower extremity: Qualified Code: I89.0 - Lymphedema of both lower extremities Ivonne Oconnell MD Jun 06, 2016 16:55
[2016-06-06 20:00] VITALS: BP 110/56; PULSE 66; RESP 20; TEMP 99; O2SAT 96
[2016-06-06] MEDS: PRAVASTATIN SOD 80 MG TAB PO SCH (21:17)
[2016-06-07 00:36] VITALS: BP 154/65; PULSE 77; RESP 18; TEMP 98.1; O2SAT 96
[2016-06-07 03:00] VITALS: BP 156/58; PULSE 75; RESP 18; TEMP 98.3; O2SAT 95
[2016-06-07 06:35] LABS: BICARBONATE 29.9 MEQ/L (21.0-32.0); POTASSIUM 3.8 MEQ/L (3.5-5.1); PROTHROMBIN TIME - PATIENT 11.4 SEC (9.8-11.6)
[2016-06-07 06:37] LABS: HEMATOCRIT 25.5 % (39.0-51.0); MEAN CELL VOLUME 81.3 FL (80.0-100.0); MEAN CORPUSCULAR HEMOGLOBIN 26.2 PG (27.0-34.0); MEAN CORPUSCULAR HGB CONC 32.2 % (32.0-36.0); PLATELET COUNT 360 TH/MM3 (150-450); RED BLOOD COUNT 3.13 MIL/MM3 (4.50-5.90); RED CELL DISTRIBUTION WIDTH 17.5 % (11.6-17.2); REVIEW FLAG FINAL; WHITE BLOOD COUNT 8.3 TH/MM3 (4.0-11.0)
[2016-06-07 08:00] VITALS: BP 177/75; PULSE 62; RESP 20; TEMP 97.9; O2SAT 90
[2016-06-07] MEDS: PANTOPRAZOLE SOD 40 MG DELAYED RELEASE TAB PO SCH (08:03)
[2016-06-07] MEDS: METHADONE HCL 10 MG TAB PO SCH ×2 (08:03→12:05)
[2016-06-07] MEDS: FERROUS SULFATE 325 MG (65 MG ELEMENTAL IRON) TAB PO SCH ×2 (08:03→21:24)
[2016-06-07] MEDS: GABAPENTIN 300 MG CAP PO SCH ×2 (08:03→12:04)
[2016-06-07] MEDS: LISINOPRIL 20 MG TAB PO SCH (08:04)
[2016-06-07] MEDS: LACTOBACILLUS ACIDOPHILUS 1 GM PACKET PO SCH ×2 (08:04→12:04)
[2016-06-07] MEDS ORDERED: PHARMACY ORDERED LAB XX ONE (09:45)
[2016-06-07 12:00] VITALS: BP 140/80; PULSE 58; RESP 20; TEMP 98; O2SAT 98
[2016-06-07] MEDS: VANCOMYCIN INJ 2,000 MG in SODIUM CHLORID 0.9% 500 ML INJ 500 ML IV SCH (12:04)
[2016-06-07] MEDS ORDERED: PANT40TA3 PO (13:07)
[2016-06-07] MEDS ORDERED: FERR325T PO (13:07)
--- NOTE | 2016-06-07 13:07 | HHI.DS ---
Discharge Summary Admission Date May 28, 2016 at 12:10 Discharge Date: Jun 07, 2016 Admitting Diagnosis RLE cellulitis, diabetic ulcers, r/o osteo, r/o DVT (1) Cellulitis of both lower extremities ICD Code: L03.115 (2) Lymphedema of lower extremity ICD Code: I89.0 (3) Peripheral neuropathy ICD Code: G62.9 (4) Cellulitis due to MRSA ICD Code: L03.90 Procedures None Brief History - From Admission Patient is a 70 year ill 70-year-old male who lives by himself patient states he is still up and ambulatory gets around for long distance with a mobility scooter and up ambulatory with a cane. Patient states he was doing well until yesterday night complains of progressive pain on the right lower extremity- from ankle up. . He states that yesterday afternoon he was working on his flower garden when he started having leg pain, unable to bear weight and described this pain as cramp initially on the right lower extremity. He call his enxt door neighbor and 911 was called and brought him here for further evaluation. He denies any fever or chills denies falling. Patient with history of chronic on and off cellulitis and non healing wounds/ ulcers on both legs. He is followed by a home health wound care nurse from [employer] [facility] and was actually seen yesterday. Right now patient complains of severe pain - even with light touch of the foot, ankle and leg. No pain when leg is kept still. He is able to move his left lower extremitiy with no limitation and pain. Patient is now admitted for further evaluation and management. CBC/BMP: 06/07/16 0521 06/07/16 0521 Significant Findings Laboratory Tests Test 06/05/16 06/07/16 05:38 05:21 Estimat Glomerular Filtration 83 ML/MIN (>89) 87 ML/MIN (>89) Rate Red Blood Count 3.13 MIL/MM3 (4.50-5.90) Hemoglobin 8.2 GM/DL (13.0-17.0) Hematocrit 25.5 % (39.0-51.0) Mean Corpuscular Hemoglobin 26.2 PG (27.0-34.0) Red Cell Distribution Width 17.5 % (11.6-17.2) Random Glucose 137 MG/DL (74-106) Calcium Level 8.2 MG/DL (8.5-10.1) Imaging Last Impressions Hip MRI 05/30/16 0000 Signed Impressions: Service Date/Time: Monday, May 30, 2016 09:01 - CONCLUSION: 1. Mild osteoarthritis of the bilateral hips. No acute findings at the right hip joint. Specifically no fracture or joint effusion. 2. External iliac adenopathy and mild inguinal adenopathy as above. Salomón Morris MD Lower Extremity MRI 05/29/16 0000 Signed Impressions: Service Date/Time: Sunday, May 29, 2016 09:55 - CONCLUSION: Numerous open wounds with soft tissue defects particularly along the medial aspect of the tibial shaft. The periosteum is markedly thickened in that region likely multiple chronic areas of infection. Does not have the typical appearance of an acute osteomyelitis, it appears much more chronic. There is very little skin overlying the bone. Low-grade edema throughout the musculature without any deep drainable fluid collections. Manuel Encarnacion MD Foot MRI 05/29/16 0000 Signed Impressions: Service Date/Time: Sunday, May 29, 2016 09:55 - CONCLUSION: Very impressive soft tissue swelling across the foot. I do not see any underlying marrow edema or marrow placement to suggest ongoing osteomyelitis. There is some impressive bony edema in the hind foot with a marked hind foot valgus alignment. No open wound or obvious marrow placing process to suggest osteomyelitis. Manuel Encarnacion MD Aorta w/Runoff CTA 05/29/16 0000 Signed Impressions: Service Date/Time: Sunday, May 29, 2016 14:49 - CONCLUSION: 1. No evidence of vascular disease to the level of the knees with nondiagnostic evaluation in the infrapopliteal vessels. 2. Possible mass measuring 5 cm in segment 6 of the liver. MRI is recommended for further evaluation if clinically indicated. Jerome Waterman MD Lower Extremity Ultrasound 05/28/16 0000 Signed Impressions: Service Date/Time: Saturday, May 28, 2016 12:24 - CONCLUSION: Negative for deep venous thrombosis. Dez Bell MD FACR PE at Discharge GENERAL: Morbidly obese male in no apparent distress. HEENT: Normocephalic. Pupils equal round and reactive. Nose without bleeding. Airway patent. NECK: Trachea midline. No JVD. Supple. CARDIOVASCULAR: Regular rate and rhythm without murmurs, gallops, or rubs. RESPIRATORY: Clear to auscultation. Breath sounds equal bilaterally. No wheezes , rales, or rhonchi. GASTROINTESTINAL: Abdomen soft, obese, non-tender, nondistended. Bowel Sounds normoactive x4. MUSCULOSKELETAL: Extremities very dry and stable. +1 bilateral lower extremity edema. The lateral lower extremity dressings are clean and dry. Right foot ulcer is dry. NEUROLOGICAL: Awake and alert. No focal neuro deficit. Normal speech. Pt update on day of discharge Patient reports that he is feeling okay. He agreed [facility]. He wants to get stronger. Hospital Course 70-year-old male admitted and treated for the following conditions: MRSA sepsis due to Severe Extensive Cellulitis of both LE - Right> Left with chronic non healing ulcers with underlying chronic lymphedema- MRSA. The patient was bacteremic from the cellulitis. He was followed by infectious disease. CTA runoff did not show any obstruction. He was treated with vancomycin and the guidance of infectious disease. Pain controlled with Dilaudid and methadone. Patient is [facility] to [facility] to continue the treatment with IV vancomycin per infectious disease recommendations. Severe right lower extremity/hip pain - no fracture- better movement. Doppler ultrasound of the right lower extremity - negative for DVT. MRI of the leg/foot- shows soft tissue swelling MRI of the right hip- no fracture PT/OT to be continued at the penitentiary facility. Acute kidney injury.- renal functions stabilizing, non oliguric likely with underlying CKI history of chronic pain/neuropathy. Continue on methadone 5 mg tid Continue on Percocet 5/325 mg q 6 Continue on gabapentin 600 mg 3 times a day history of chronic atrial fibrillation- in SR. -on Coumadin as OP-Coumadin was initially held due to anemia. H&H stabilized. Coumadin resumed. hyperlipidemia, hypertension Continue pravastatin 40 mg at bedtime , Lisinopril 10 mg daily Acute anemia on top of anemia of chronic disease S/P 1 unit PRBC 05/29 Follow up H and H and H- stabilizing. Coumadin was held. Which was later resumed. negative guiac stools. PPI Diarrhea-- C diff negative monitor BM continue Lactinex May give Imodium when necessary Generalized weakness, deconditioning - PT/OT to be continued. - Optimize out of bed to chair and increase activity. Pt Condition on Discharge: Good Discharge Disposition: Discharge to SNF Discharge Time: > 30 minutes Discharge Instructions DIET: Follow Instructions for: Heart Healthy Diet Activities you can perform: See Additionl Instruction Other Activity Instructions: Per physical therapy instructions. Use assistance. Follow up Referrals: PCP Follow-up - 2 Weeks New Medications: Ferrous Sulfate (Ferrous Sulfate) 325 Mg Tab 325 MG PO BID #60 TAB Pantoprazole (Pantoprazole) 40 Mg Tab 40 MG PO DAILY #30 TAB Continued Medications: Gabapentin (Gabapentin) 600 Mg Tab 600 MG PO TID #90 Ref 0 TAB Lisinopril (Lisinopril) 20 Mg Tab 20 MG PO DAILY #30 Ref 0 TAB Methadone (Methadone) 5 Mg Tab 5 MG PO TID #90 TAB (This prescription has been renewed) Simvastatin (Zocor) 40 Mg Tab 40 MG PO HS Cholesterol Management #30 Ref 0 TAB Warfarin (Coumadin) 10 Mg Tab 10 MG PO MOTH Take 1 tablet (10mg) on Saturday and Prevent Blood Clot # 30 Ref 0 TAB Warfarin (Coumadin) 7.5 Mg Tab 7.5 MG PO SUTUWEFRSA Take 1 tablet (7.5mg) on Saturday,Saturday,Saturday,Saturday and Saturday Prevent Blood Clot #30 Ref 0 TAB Ivonne Oconnell MD Jun 07, 2016 13:07
[2016-06-07] MEDS ORDERED: METH5TAB PO (13:10)
[2016-06-07] MEDS: ENOXAPARIN SODIUM 30 MG/0.3 ML SYRINGE SQ SCH (15:00)
--- NOTE | 2016-06-07 15:06 | HHI.FF ---
Infusion Therapy Location of Infusion Therapy: [facility] Infusion Therapy Order Patient Information Patient Weight 158.5 kg Diagnosis: Coded Allergies: *MDRO Multi-Drug Resistant Organism (Verified Adverse Reaction, Unknown, ) MRSA (leg wound) - 06/2015, 05/28/16; MRSA (foot) - 08/2015,10/2015; MRSA (blood)-05/28/16 Tetracycline (Verified Adverse Reaction, Unknown, 11/21/15) THRUSH Administer Medication Vancomycin 2 grams IV q 24 hours Stop Treatment: Jun 21, 2016 Additional Information Venous access: PICC Line Additional Instructions [x] Peripheral flush and dressing changes per protocol [x] Implanted port and central online advertising director: * Implanted port: 10 ml Normal Saline followed by 5 ml Heparin 100 units/ml Heparin flush after each use and monthly to maintain. [] May leave port accessed during therapy. [] May leave peripheral site accessed for duration of therapy. [x] If patient has SOB or respiratory distress, check oxygen saturation. If less than 90% or clinical signs of respiratory distress, administer oxygen at 2 L/min. via nasal cannula and notify physician. [x] Anaphylaxis/Reaction orders: * Stop infusion. * Keep IV line open with saline flush. * Notify physician. * Monitor vital signs every 15 minutes until symptoms resolve. * Check Oxygen saturation; Oxygen at 2 L/min. via nasal cannula if less than 90% or clinical signs of respiratory distress. * Administer diphenhydramine (Benadryl) 25 mg IV STAT, (unless patient has received as pre-med). May repeat once, if necessary. * Solu-Cortef 250 mg IVP over 30-60 seconds, use 100 mg vials for each dissolution. * Epinephrine (1mg/1 ml) 0.3 mg subcutaneously or IVP now with any signs of respiratory distress. * Check with physician for new additional pre-med orders if patient is re- challenged or re-treated. [x] May remove PICC line when treatment complete, after confirming with Physician. [x] If the patient is admitted to the hospital, the ED, or transferred via [facility] , complete transfer form including medication reconciliation order sheet. Laboratory Tests Weekly Labs: BMP (BMP Q 3 days while on vancomycin.), Vancomycin Trough Additional Information Heating pad to both shoulders prn. - Shoulder pains. Kevin Staley MD Jun 07, 2016 15:06
--- NOTE | 2016-06-07 15:14 | HHI.IDPN ---
Note Infectious Disease Note Patient is alert but feels drowsy. Notes shoulder pain. No abdominal pain. Afebrile. No nausea. Diarrhea improved. Blood culture / has no growth. Stool c. diff neg. PAST MEDICAL HISTORY 1. Diabetes mellitus insulin requiring 2. Diabetic neuropathy 3. Hypertension 4. Atrial fibrillation 5. Hyperlipidemia 6. Anemia 7. History of right great toe amputation ALLERGIES TETRACYCLINE ANTIBIOTICS: Vancomycin IV. OBJECTIVE: Vital Signs Date Time Temp Pulse Resp B/P Pulse Ox O2 Delivery O2 Flow Rate FiO2 06/07/16 12:00 98.0 58 20 140/80 98 06/07/16 08:00 97.9 62 20 177/75 90 06/07/16 03:00 98.3 75 18 156/58 95 06/07/16 00:36 98.1 77 18 154/65 96 06/06/16 20:00 99.0 66 20 110/56 96 06/06/16 16:00 98.1 63 18 133/60 97 06/06/16 06/06/16 06/07/16 15:00 23:00 07:00 Intake Total 1256 ml 600 ml 850 ml Output Total 600 ml 2000 ml Balance 656 ml 600 ml -1150 ml Intake Oral 1000 ml 600 ml 850 ml IV Total 256 ml Output Urine Total 600 ml 2000 ml # Voids 2 # Bowel Movements 1 0 1 Laboratory Tests Test 06/07/16 05:21 White Blood Count 8.3 TH/MM3 Red Blood Count 3.13 MIL/MM3 Hemoglobin 8.2 GM/DL Hematocrit 25.5 % Mean Corpuscular Volume 81.3 FL Mean Corpuscular Hemoglobin 26.2 PG Mean Corpuscular Hemoglobin 32.2 % Concent Red Cell Distribution Width 17.5 % Platelet Count 360 TH/MM3 Mean Platelet Volume 7.2 FL Laboratory Tests Test 06/07/16 05:21 Sodium Level 141 MEQ/L Potassium Level 3.8 MEQ/L Chloride Level 104 MEQ/L Carbon Dioxide Level 29.9 MEQ/L Anion Gap 7 MEQ/L Blood Urea Nitrogen 12 MG/DL Creatinine 0.87 MG/DL Estimat Glomerular Filtration 87 ML/MIN Rate Random Glucose 137 MG/DL Calcium Level 8.2 MG/DL Microbiology Date/Time Procedure Status Source Growth 05/28/16 10:30 Aerobic Blood Culture - Final Complete Blood Peripheral S. Aureus Mrsa 05/28/16 10:30 Anaerobic Blood Culture - Final Complete S. Aureus Mrsa 05/28/16 10:40 Aerobic Blood Culture - Preliminary Resulted Blood Peripheral S. Aureus Mrsa 05/28/16 10:40 Anaerobic Blood Culture - Preliminary Resulted S. Aureus Mrsa 05/28/16 10:45 Gram Stain - Final Complete Wound Leg 05/28/16 10:45 Wound Culture - Final Complete S. Aureus Mrsa PHYSICAL EXAMINATION GENERAL: No acute distress. HEENT: No icterus. No visible lesions. NECK: Supple. No adenopathy. LUNGS: Clear to auscultation. HEART: 2/6 systolic ejection murmur at the left upper sternal border and RLSB. ABDOMEN: Bowel sounds present, soft. Non tender. EXTREMITIES: Both legs have swelling and chronic ulcerations, less erythema. Ulcers at the anterior tibias and r. lateral tibia. Good granulation tissue. Shoulders tender with movement. NEUROLOGIC: Nonfocal. SKIN: No rash. PSYCH: Calm. Pleasant affect. IMPRESSION 1. Bilateral lower extremity cellulitis, right greater than left. 2. Chronic venous stasis / Diabetic ulcers - infected with MRSA. 3. Bacteremia - MRSA. Source being the leg infected wounds. Appears to be responding to antibiotics. repeat blood cultures negative. 4. Fever - improved. 5. Diarrhea - c. diff neg. Monitor. RECOMMENDATIONS 1. Continue Vancomycin IV x 2 more weeks. Until 06/21/16. PIC line and orders written for snf facility. 2. Continue Lactinex and Imodium. 3. Okay to discharge after PIC placement. Kevin Staley MD Jun 07, 2016 15:14
--- NOTE | 2016-06-07 17:43 | RADRPT ---
EXAM DATE/TIME: 06/07/2016 17:08 [facility] COMPARISON: CHEST SINGLE AP, November 24, 2015, 14:15. INDICATIONS : PICC Line Placement. MEDICAL HISTORY : Diabetes mellitus type 2. Cellulitis lower extremities. SURGICAL HISTORY : Inguinal hernia repair. Great toe right foot removed. ENCOUNTER: Initial ACUITY: 1 day PAIN SCORE: 0/10 LOCATION: Bilateral chest FINDINGS: A single view of the chest demonstrates the lungs to be symmetrically aerated without evidence of mas s, infiltrate or effusion. The cardiomediastinal contours are unremarkable. Osseous structures are intact. The a right-sided PICC line is noted which has an abnormal course. The catheter turns back up on itself with the tip projected over the right axilla. CONCLUSION: 1. Abnormal placement of right-sided PICC line with the tip projected over the axilla. 2. No acute cardiopulmonary disease. Milind Alexander MD on June 07, 2016 at 17:40 Board Certified Radiologist. This report was verified electronically.
[2016-06-07] MEDS: SODIUM CHLOR 0.9% 1000 ML INJ 1,000 ML IV SCH (19:16)
[2016-06-07 20:00] VITALS: BP 154/70; PULSE 63; RESP 18; TEMP 98.2; O2SAT 96
--- NOTE | 2016-06-07 20:07 | RADRPT ---
EXAM DATE/TIME: 06/07/2016 19:14 [facility] COMPARISON: CHEST SINGLE AP, June 07, 2016, 17:08. INDICATIONS : PICC line placement MEDICAL HISTORY : Diabetes mellitus type 2. Cellulitis lower extremities. SURGICAL HISTORY : Diabetes mellitus type 2. Cellulitis lower extremities. ENCOUNTER: Subsequent ACUITY: 1 day PAIN SCORE: 0/10 LOCATION: Bilateral chest FINDINGS: A single view of the chest demonstrates right-sided PICC line tip in superior vena cava. Minimal basi lar density. Heart size upper limits normal. No pneumothorax. CONCLUSION: 1. Right PICC line placed with tip in superior vena cava. No pneumothorax. Salomón Morris MD on June 07, 2016 at 20:05 Board Certified Radiologist. This report was verified electronically.
[2016-06-07] MEDS: PRAVASTATIN SOD 80 MG TAB PO SCH (21:24)
[2016-06-08] MEDS ORDERED: PHARMACY ORDERED LAB XX ONE (12:45)
== END 2016-06-07 21:55 | DRG 872 ==
LOC: NEPA 09:48 → NEDA 12:10 → N04A 17:09
PROVIDERS: ADMIT Family Medicine; ATTEND Family Medicine
PROC: 30253N1 (ICD-10-PCS; principal; 2016-05-28)
DX: A41.02 Sepsis due to Methicillin resistant Staphylococcus aureus (principal); N17.9 Acute kidney failure, unspecified; E11.42 Type 2 diabetes mellitus with diabetic polyneuropathy; E11.621 Type 2 diabetes mellitus with foot ulcer; I50.9 Heart failure, unspecified; I11.0 Hypertensive heart disease with heart failure; L03.115 Cellulitis of right lower limb; L03.116 Cellulitis of left lower limb; E66.2 Morbid (severe) obesity with alveolar hypoventilation; I89.0 Lymphedema, not elsewhere classified; E11.622 Type 2 diabetes mellitus with other skin ulcer; I48.2 Chronic atrial fibrillation; Z79.01 Long term (current) use of anticoagulants; E78.5 Hyperlipidemia, unspecified; D63.8 Anemia in other chronic diseases classified elsewhere; R19.7 Diarrhea, unspecified; R53.1 Weakness; Z79.4 Long term (current) use of insulin; Z89.411 Acquired absence of right great toe; H91.90 Unspecified hearing loss, unspecified ear; L97.519 Non-pressure chronic ulcer of other part of right foot with unspecified severity; L97.529 Non-pressure chronic ulcer of other part of left foot with unspecified severity; I83.009 Varicose veins of unspecified lower extremity with ulcer of unspecified site; Z87.891 Personal history of nicotine dependence; Z99.3 Dependence on wheelchair
CPT/HCPCS: 36430; 36569; 71010; 73720; 73723; 75635; 76937; 80048; 80076; 80202; 81001; 82272; 82565; 82728; 82948; 83036; 83540; 83550; 83605; 85025; 85027; 85610; 85652; 86140; 86403; 86850; 86900; 86901; 86920; 87040; 87070; 87147; 87186; 87205; 87493; 93005; 93923; 93970; 99291; A9579; C1751; J1170; J1650; J2543; J3370; J7030; J7040; J7050; P9016; Q0163; Q9967

== ENCOUNTER 2016-06-25 17:11 | Emergency (ER) | payer OTHER ==
[~2016-06-25] VITALS: Ht 213.4 cm; Wt 150.0 kg
[~2016-06-25 17:11] MED LIST changes: +COUM10TA PO; +COUM7.5T PO; -DOCU1CAP39 PO; -FERR324T4 PO; +FERR325T PO; +GABA600T PO; +LISI-515 PO; -LISI20 PO; -METH10TA PO; +METH5TAB PO; -NEUR600T PO; -OXYC1SOL5 PO; +PANT40TA3 PO; -WARF1TAB PO; -WARF7.5T4 PO
[2016-06-25 17:26] VITALS: BP 135/62; PULSE 76; RESP 22; TEMP 98.2; O2SAT 96
[2016-06-25] MEDS ORDERED: SODIUM CHLORID 0.9% 500 ML INJ 500 ML IV ONE (17:30)
--- NOTE | 2016-06-25 17:39 | PD ---
HPI Chief Complaint: General Weakness Time Seen by Provider: 17:18 Travel History International Travel<30 days: No Contact w/Intl Traveler<30days: No Traveled to known affect area: No History of Present Illness HPI The patient is a 70-year-old male who presents emergency department for generalized weakness. The patient was recently hospitalized for cellulitis and chronic edema lower extremities. The patient was subsequently discharged to rehabilitation. The patient was at short-term rehabilitation and was discharged home earlier today, however, he states that they dropped him off at his front door left. The patient states he is too weak to go in the house, therefore, called EMS to come to the hospital. The patient states he needs to stay in another facility, feels like he is too weak to go home. The patient has been taken Levaquin as directed, for his sepsis. The patient states he is currently off of IV antibiotics. He does note a history of chronic lower extremity edema, right greater than the left. The patient states he does not want to go to a intermediate or to the [facility] intermediate long-term, because able take his check. The patient states he is able to ambulate in the house with a cane, states he needs somebody to help him get in the house where he can ambulate with his cane. PFSH Past Medical History Hx Anticoagulant Therapy: Yes (COUMADIN) Arthritis: Yes Atrial Fibrillation: Yes Heart Rhythm Problems: Yes (A-FIB) Cancer: No Cardiovascular Problems: Yes High Cholesterol: Yes Diabetes: Yes Diminished Hearing: Yes (LEFT EAR DIMINISHED) Endocrine: Yes Gastrointestinal Disorders: Yes Genitourinary: No Hiatal Hernia: Yes Hypertension: Yes Immune Disorder: No Implanted Vascular Access Dvce: No Musculoskeletal: Yes Neurologic: Yes Psychiatric: No Reproductive: No Respiratory: Yes (ACUTE SINUSITIS) Past Surgical History Abdominal Surgery: Yes (7 HERNIA REPAIR) Insulin Pump: Yes (LANTUS, 50 UNITS NIGHT TIME) Other Surgery: Yes (R LEG DEBRIEDMENT X5) Social History Alcohol Use: No Tobacco Use: No Substance Use: No Allergies-Medications (Allergen,Severity, Reaction): Coded Allergies: *MDRO Multi-Drug Resistant Organism (Verified Adverse Reaction, Unknown, ) MRSA (leg wound) - 06/2015, 05/28/16; MRSA (foot) - 08/2015,10/2015; MRSA (blood)-05/28/16 Tetracycline (Verified Adverse Reaction, Unknown, 06/25/16) THRUSH Reported Meds & Prescriptions Reported Meds & Active Scripts Active Methadone (Methadone HCl) 5 Mg Tab 5 Mg PO TID Pantoprazole (Pantoprazole Sodium) 40 Mg Tab 40 Mg PO DAILY Ferrous Sulfate 325 Mg Tab 325 Mg PO BID Reported Coumadin (Warfarin) 7.5 Mg Tab 7.5 Mg PO SUTUWEFRSA Take 1 tablet (7.5mg) on Saturday,Saturday,Saturday,Saturday and Saturday Coumadin (Warfarin) 10 Mg Tab 10 Mg PO MOTH Take 1 tablet (10mg) on Saturday and Zocor (Simvastatin) 40 Mg Tab 40 Mg PO HS Lisinopril 20 Mg Tab 20 Mg PO DAILY Gabapentin 600 Mg Tab 600 Mg PO TID Review of Systems General / Constitutional: No: Fever Cardiovascular: No: Chest Pain or Discomfort Respiratory: No: Shortness of Breath Gastrointestinal: No: Nausea, Vomiting Musculoskeletal: Positive: Edema, Pain Neurologic: No: Paresthesia, Sensory Disturbance Physical Exam Narrative GENERAL: Awake, alert, pleasant 70-year-old male who appears his stated age and is in no acute respiratory distress. SKIN: Warm and dry. HEAD: Atraumatic. Normocephalic. EYES: No injection or drainage. ENT: No nasal bleeding or discharge. Mucous membranes pink and moist. NECK: Trachea midline. No JVD. CARDIOVASCULAR: Regular rate and rhythm. No murmur appreciated. RESPIRATORY: No accessory muscle use. Clear to auscultation. Breath sounds equal bilaterally. GASTROINTESTINAL: Abdomen soft, obese, no rebound tenderness. MUSCULOSKELETAL: Chronic lymphedema and chronic venous stasis change the legs bilateral, right greater than the left. Superficial wounds bilaterally which have dressings in place. Amputation the right great toe. NEUROLOGICAL: Awake and alert. No obvious cranial nerve deficits. Motor grossly within normal limits. Normal speech. PSYCHIATRIC: Appropriate mood and affect; insight and judgment normal. Data Data Last Documented VS Vital Signs Date Time Temp Pulse Resp B/P Pulse Ox O2 Delivery O2 Flow Rate FiO2 06/26/16 06:25 84 18 135/66 96 Room Air 06/25/16 17:26 98.2 Orders Complete Blood Count With Diff (06/25/16 17:26) Comprehensive Metabolic Panel (06/25/16 17:26) Lactic Acid (06/25/16 17:26) Sodium Chlorid 0.9% 500 Ml Inj (Ns 500 M (06/25/16 17:30) Act Partial Throm Time (Ptt) (06/25/16 17:26) Prothrombin Time / Inr (Pt) (06/25/16 17:26) Diet Regular Basic (06/26/16 Breakfast) Labs Laboratory Tests Test 06/25/16 17:35 White Blood Count 9.1 TH/MM3 Red Blood Count 3.14 MIL/MM3 Hemoglobin 8.3 GM/DL Hematocrit 25.8 % Mean Corpuscular Volume 82.1 FL Mean Corpuscular Hemoglobin 26.3 PG Mean Corpuscular Hemoglobin 32.0 % Concent Red Cell Distribution Width 20.0 % Platelet Count 204 TH/MM3 Mean Platelet Volume 7.9 FL Neutrophils (%) (Auto) 75.3 % Lymphocytes (%) (Auto) 13.3 % Monocytes (%) (Auto) 8.5 % Eosinophils (%) (Auto) 2.0 % Basophils (%) (Auto) 0.9 % Neutrophils # (Auto) 6.8 TH/MM3 Lymphocytes # (Auto) 1.2 TH/MM3 Monocytes # (Auto) 0.8 TH/MM3 Eosinophils # (Auto) 0.2 TH/MM3 Basophils # (Auto) 0.1 TH/MM3 CBC Comment DIFF FINAL Differential Comment Prothrombin Time 30.4 SEC Prothromb Time International 2.6 RATIO Ratio Activated Partial 36.6 SEC Thromboplast Time Sodium Level 138 MEQ/L Potassium Level 4.1 MEQ/L Chloride Level 101 MEQ/L Carbon Dioxide Level 30.4 MEQ/L Anion Gap 7 MEQ/L Blood Urea Nitrogen 26 MG/DL Creatinine 1.39 MG/DL Estimat Glomerular Filtration 51 ML/MIN Rate Random Glucose 135 MG/DL Lactic Acid Level 1.8 mmol/L Calcium Level 7.8 MG/DL Total Bilirubin 0.3 MG/DL Aspartate Amino Transf 13 U/L (AST/SGOT) Alanine Aminotransferase 11 U/L (ALT/SGPT) Alkaline Phosphatase 99 U/L Total Protein 7.4 GM/DL Albumin 2.2 GM/DL MDM Medical Decision Making Medical Screen Exam Complete: Yes Emergency Medical Condition: Yes Medical Record Reviewed: Yes Interpretation(s) Laboratory Tests Test 06/25/16 17:35 White Blood Count 9.1 TH/MM3 Red Blood Count 3.14 MIL/MM3 Hemoglobin 8.3 GM/DL Hematocrit 25.8 % Mean Corpuscular Volume 82.1 FL Mean Corpuscular Hemoglobin 26.3 PG Mean Corpuscular Hemoglobin 32.0 % Concent Red Cell Distribution Width 20.0 % Platelet Count 204 TH/MM3 Mean Platelet Volume 7.9 FL Neutrophils (%) (Auto) 75.3 % Lymphocytes (%) (Auto) 13.3 % Monocytes (%) (Auto) 8.5 % Eosinophils (%) (Auto) 2.0 % Basophils (%) (Auto) 0.9 % Neutrophils # (Auto) 6.8 TH/MM3 Lymphocytes # (Auto) 1.2 TH/MM3 Monocytes # (Auto) 0.8 TH/MM3 Eosinophils # (Auto) 0.2 TH/MM3 Basophils # (Auto) 0.1 TH/MM3 CBC Comment DIFF FINAL Differential Comment Sodium Level 138 MEQ/L Potassium Level 4.1 MEQ/L Chloride Level 101 MEQ/L Carbon Dioxide Level 30.4 MEQ/L Anion Gap 7 MEQ/L Blood Urea Nitrogen 26 MG/DL Creatinine 1.39 MG/DL Estimat Glomerular Filtration 51 ML/MIN Rate Random Glucose 135 MG/DL Lactic Acid Level 1.8 mmol/L Calcium Level 7.8 MG/DL Total Bilirubin 0.3 MG/DL Aspartate Amino Transf 13 U/L (AST/SGOT) Alanine Aminotransferase 11 U/L (ALT/SGPT) Alkaline Phosphatase 99 U/L Total Protein 7.4 GM/DL Albumin 2.2 GM/DL Differential Diagnosis Differential diagnosis includes chronic lymphedema, chronic venous stasis, cellulitis, hyponatremia, hypoalbuminemia, poor social situation, inability to care for self. Narrative Course IV was established, labs are drawn and sent, and the patient was placed on cardiac telemetry monitoring and continuous pulse oximetry monitoring. I had case management speak with the patient at bedside, they state he has home health care arranged and [facility] because [facility] will [facility]". Therefore, after discussion with case management, as agreed if laboratory evaluation is unremarkable, patient will be discharged home and will have home healthcare evaluate the patient at home tomorrow. The patient's white count is normal. Lactic acid is less than 2 at 1.8. Creatinine is mildly elevated 1.39. Patient has had subtherapeutic INRs recently, however, this can be followed up as an outpatient. We will ambulate the patient and then have case management obtain a ride home for the patient. The patient is comfortable with this plan of care and disposition. The patient was unable to ambulate with assistance, it appears he has deconditioning and did not improve in rehabilitation, as he was just discharged from rehabilitation today. Therefore, patient will be kept overnight for case management to evaluate the patient in the morning for placement and a [facility] intermediate as he cannot go home because he is unable to ambulate and just left rehabilitation is unable to ambulate. I do not believe patient needs inpatient IV antibiotics for his chronic venous stasis, is currently on oral antibiotics after receiving IV antibiotics. The patient's white count and lactic acid are unremarkable. Patient will need placement for inability to ambulate and deconditioning. Therefore, patient will be kept in the emergency department until case management to evaluate the patient for possible transfer to the [facility] intermediate. Diagnosis Primary Impression: Venous stasis ulcers of both lower extremities Patient Instructions: General Instructions Additional Instructions: Continue current medications as directed. Follow-up with your primary physician and/or the [facility] clinic. Follow-up with home health care. Return if symptoms worsen or progress. Med/Other Pt SpecificInfo: No Change to Meds Disposition: 03 DISCHARGE TO SNF (case management to evaluate for [facility] intermediate) Condition: Stable David Gonzalez MD Jun 25, 2016 17:39
[2016-06-25 18:11] LABS: AUTOMATED NEUTROPHIL # 6.8 TH/MM3 (1.8-7.7); BASOPHIL # 0.1 TH/MM3 (0-0.2); BASOPHIL % 0.9 % (0.0-2.0); EOSINOPHIL # 0.2 TH/MM3 (0-0.4); HEMATOCRIT 25.8 % (39.0-51.0); HEMO FLAGS DIFF FINAL; LYMPH % 13.3 % (9.0-44.0); LYMPHOCYTE # 1.2 TH/MM3 (1.0-4.8); MEAN CELL VOLUME 82.1 FL (80.0-100.0); MEAN CORPUSCULAR HEMOGLOBIN 26.3 PG (27.0-34.0); MONO % 8.5 % (0.0-8.0); NEUT % 75.3 % (16.0-70.0); PLATELET COUNT 204 TH/MM3 (150-450); RED BLOOD COUNT 3.14 MIL/MM3 (4.50-5.90); WHITE BLOOD COUNT 9.1 TH/MM3 (4.0-11.0)
[2016-06-25 18:24] LABS: APTT (PATIENT) 36.6 SEC (24.3-30.1); INTERNATIONAL NORMALIZED RATIO 2.6 RATIO; PROTHROMBIN TIME - PATIENT 30.4 SEC (9.8-11.6)
[2016-06-25 18:30] LABS: ALT (GPT) 11 U/L (12-78); ANION GAP 7 MEQ/L (5-15); AST (GOT) 13 U/L (15-37); BICARBONATE 30.4 MEQ/L (21.0-32.0); BLOOD UREA NITROGEN 26 MG/DL (7-18); CHLORIDE 101 MEQ/L (98-107); GLOMERULAR FILTRATION RATE 51 ML/MIN (>89); POTASSIUM 4.1 MEQ/L (3.5-5.1); SODIUM (NA) 138 MEQ/L (136-145)
[2016-06-25 18:33] LABS: ALKALINE PHOSPHATASE 99 U/L (45-117); TOTAL BILIRUBIN ADULT 0.3 MG/DL (0.2-1.0)
[2016-06-25 19:55] VITALS: BP 145/79; PULSE 99; RESP 18; O2SAT 99
[2016-06-26 02:00] VITALS: BP 126/80; PULSE 89; RESP 18; O2SAT 98
[2016-06-26 06:25] VITALS: BP 135/66; PULSE 84; RESP 18; O2SAT 96
[2016-06-26 09:34] VITALS: BP 132/81; PULSE 81; RESP 17; O2SAT 98
== END 2016-06-26 11:44 ==
LOC: NEPE 17:11 → NEPA 06-26 11:44
DX: I87.8 Other specified disorders of veins (principal); E78.00 Pure hypercholesterolemia, unspecified; E11.9 Type 2 diabetes mellitus without complications; I10 Essential (primary) hypertension; H91.92 Unspecified hearing loss, left ear; Z79.01 Long term (current) use of anticoagulants; Z79.4 Long term (current) use of insulin; Z87.39 Personal history of other diseases of the musculoskeletal system and connective tissue; Z86.79 Personal history of other diseases of the circulatory system; Z87.19 Personal history of other diseases of the digestive system; Z87.09 Personal history of other diseases of the respiratory system
CPT/HCPCS: 80053; 83605; 85025; 85610; 85730; 96360; 96361; 99285; J7040

== ENCOUNTER 2016-06-26 16:50 | Observation (INO) | payer OTHER ==
[~2016-06-26] VITALS: Ht 213.4 cm; Wt 152.0 kg
[2016-06-26 16:54] VITALS: BP 118/56; PULSE 77; RESP 16; TEMP 97.7; O2SAT 95
--- NOTE | 2016-06-26 18:32 | PD ---
HPI Chief Complaint: Pain: Acute or Chronic Time Seen by Provider: 18:29 Travel History International Travel<30 days: No Contact w/Intl Traveler<30days: No Traveled to known affect area: No History of Present Illness HPI Patient is a 70-year-old male who presents to the emergency department due to inability to care for himself at his home. Patient was discharged from the emergency department earlier this morning after mental health case manager told him he did not have any home health benefits. Patient states he was told by a home health nurse to return to emergency department. Patient was discharged from a rehabilitation facility yesterday, when he got home he realized he was too weak to care for himself, called EMS and was brought to the hospital. Patient has no new complaints today. He reports a history of chronic bilateral lower extremity edema, venous stasis ulcers, diabetes, neuropathy. PFSH Past Medical History Hx Anticoagulant Therapy: Yes (COUMADIN) Arthritis: Yes Atrial Fibrillation: Yes Heart Rhythm Problems: Yes (A-FIB) Cancer: No Cardiovascular Problems: Yes High Cholesterol: Yes Diabetes: Yes Patient Takes Glucophage: No Diminished Hearing: Yes (LEFT EAR DIMINISHED) Endocrine: Yes Gastrointestinal Disorders: Yes Genitourinary: No Hiatal Hernia: Yes Hypertension: Yes Immune Disorder: No Implanted Vascular Access Dvce: No Musculoskeletal: Yes Neurologic: Yes Psychiatric: No Reproductive: No Respiratory: Yes (ACUTE SINUSITIS) Past Surgical History Abdominal Surgery: Yes (7 HERNIA REPAIR) Insulin Pump: Yes (LANTUS, 50 UNITS NIGHT TIME) Other Surgery: Yes (R LEG DEBRIEDMENT X5) Social History Alcohol Use: No Tobacco Use: No Substance Use: No Allergies-Medications (Allergen,Severity, Reaction): Coded Allergies: *MDRO Multi-Drug Resistant Organism (Verified Adverse Reaction, Unknown, ) MRSA (leg wound) - 06/2015, 05/28/16; MRSA (foot) - 08/2015,10/2015; MRSA (blood)-05/28/16 Tetracycline (Verified Adverse Reaction, Unknown, 06/26/16) THRUSH Reported Meds & Prescriptions Reported Meds & Active Scripts Active Methadone (Methadone HCl) 5 Mg Tab 5 Mg PO TID Pantoprazole (Pantoprazole Sodium) 40 Mg Tab 40 Mg PO DAILY Ferrous Sulfate 325 Mg Tab 325 Mg PO BID Reported Coumadin (Warfarin) 7.5 Mg Tab 7.5 Mg PO SUTUWEFRSA Take 1 tablet (7.5mg) on Saturday,Saturday,Saturday,Saturday and Saturday Coumadin (Warfarin) 10 Mg Tab 10 Mg PO MOTH Take 1 tablet (10mg) on Saturday and Zocor (Simvastatin) 40 Mg Tab 40 Mg PO HS Lisinopril 20 Mg Tab 20 Mg PO DAILY Gabapentin 600 Mg Tab 600 Mg PO TID Review of Systems Except as stated in HPI: all other systems reviewed are Neg HENT: No: Headaches Cardiovascular: No: Chest Pain or Discomfort Respiratory: No: Shortness of Breath Gastrointestinal: No: Nausea Musculoskeletal: Positive: Weakness, Edema Skin: Positive Dryness, Positive Lesions, Positive Other (chronic changes to bilateral lower extremities.) Physical Exam Narrative GENERAL: Obese, well-developed, chronically ill-appearing male. Resting comfortably in no acute distress. SKIN: Warm and dry. Bilateral lower extremities with Shawn wraps, edematous, nonpitting. Skin tear to dorsal aspect of left hand. HEAD: Atraumatic. Normocephalic. EYES: Pupils equal and round. No scleral icterus. No injection or drainage. ENT: No nasal bleeding or discharge. Mucous membranes pink and moist. NECK: Trachea midline. No JVD. CARDIOVASCULAR: Regular rate and rhythm. 2/6 systolic murmur appreciated. RESPIRATORY: No accessory muscle use. Clear to auscultation. Breath sounds equal bilaterally. GASTROINTESTINAL: Abdomen soft, non-tender, nondistended. Hepatic and splenic margins not palpable. MUSCULOSKELETAL: No obvious deformities. No clubbing. No cyanosis. Chronic edema to bilateral lower extremities. NEUROLOGICAL: Awake and alert. No obvious cranial nerve deficits. Normal speech. PSYCHIATRIC: Depressed mood and flat affect; insight and judgment normal. Data Data Last Documented VS Vital Signs Date Time Temp Pulse Resp B/P Pulse Ox O2 Delivery O2 Flow Rate FiO2 06/26/16 19:44 86 18 124/68 95 Room Air 06/26/16 16:54 97.7 Orders Wound Care (06/26/16 18:35) Diet 1800 Ada Cons Carb (06/26/16 Dinner) Admit Order (Ed Use Only) (06/26/16 21:07) MDM Medical Decision Making Medical Screen Exam Complete: Yes Emergency Medical Condition: Yes Medical Record Reviewed: Yes Interpretation(s) Vital Signs Date Time Temp Pulse Resp B/P Pulse Ox O2 Delivery O2 Flow Rate FiO2 06/26/16 16:54 97.7 77 16 118/56 95 Differential Diagnosis Chronic lymphedema versus venous stasis ulcers versus cellulitis versus electrolyte abnormality versus self-care deficit versus gait abnormality versus other Narrative Course Patient is a 70-year-old male presenting to the emergency department. Patient is a history of chronic of edema, chronic venous stasis ulcers, neuropathy, diabetes, wheelchair bound. Patient was seen and evaluated the emergency department last night, and according to case management notes from this morning patient had home health care set up, transportation was also set up for patient to go home today. When home health nurse arrived to the patient's home today they deemed it unsafe for patient to be living alone and patient was sent back to the emergency department. I spoke with the on-call nurse from the [facility] [employer], who stated who corroborated that the patient was sent back to emergency department due to patient being unsafe to live alone. Case management was consulted as soon as patient was placed in a medical bed in the emergency department this evening, and according to their notes patient has several friends that he could stay with tonight. When I inquired with patient regarding this he stated his friend does not have running water or electricity. This is not a safe or viable option for patient's discharge. Dr. Stanley was paged, she accepted admission. Patient be placed under observation at this time. Diagnosis Primary Impression: Self-care deficit in patient living alone Additional Impressions: Lymphedema of lower extremity Qualified Code: I89.0 - Lymphedema of both lower extremities Wheelchair bound Acute on chronic renal failure Venous stasis ulcers of both lower extremities Type 2 diabetes mellitus with peripheral neuropathy Admitting Information Admitting Physician Requests: Observation Condition: Stable Jinny Delcid Jun 26, 2016 18:32
[2016-06-26 19:44] VITALS: BP 124/68; PULSE 86; RESP 18; O2SAT 95
[2016-06-26] MEDS ORDERED: GLUCAGON 1 MG/ML VIAL OTHER PRN (22:15)
[2016-06-26] MEDS ORDERED: SODIUM CHLORIDE 0.9% FLUSH 5 ML FLUSH FLUSH PRN (22:15)
[2016-06-26] MEDS ORDERED: NALOXONE HCL 0.4 MG/ML AMP IV PRN (22:15)
[2016-06-26] MEDS ORDERED: DEXTROSE 50% IN WATER 50 ML VIAL(D50) IV PUSH PRN (22:15)
--- NOTE | 2016-06-27 00:45 | HHI.HP ---
[facility] Service [facility] Primary Care Physician [facility] Admission Diagnosis self-care deficit, chronic lymphedema, chronic ulcerations, diabetes Diagnoses: Chief Complaint: Weakness Travel History International Travel<30 Days: No Contact w/Intl Traveler <30 Da: No Traveled to Known Affected Are: No History of Present Illness History taken from patient and ED physician. 70-year-old male with a history of lymphedema, diabetes, neuropathy, A. fib, dyslipidemia, anemia and hypertension presented to the ED after being seen by home health, and the home health nurse told him to come to the ED because he is unable to care for himself. He currently is wheelchair bound and lives alone. He was last seen in April for weakness and was discharged to a rehab facility. The patient states due to insurance he was taken out of rehab and sent home. He is here for placement by case management because he is unable to care for himself. He denies any chest pain, sob, fever or chills. He is complaining of diarrhea, but he has been on vancomycin. Cdiff was negative last admission. Patient was being treated with IV Vanco at the rehabilitation facility, last dose was completed on 06/21/16 as directed by ID. Review of Systems Constitutional: DENIES: Fever, Chills Respiratory: DENIES: Cough, Sputum production, Shortness of breath Cardiovascular: COMPLAINS OF: Lower Extremity Edema, DENIES: Chest pain Gastrointestinal: COMPLAINS OF: Diarrhea, DENIES: Abdominal pain, Nausea, Vomiting Genitourinary: DENIES: Hematuria, Dysuria Musculoskeletal: DENIES: Back pain, Neck pain Integumentary: DENIES: Rash Hematologic/lymphatic: COMPLAINS OF: Lymphadenopathy Immunologic/allergic: DENIES: Urticaria Neurologic: COMPLAINS OF: Localized weakness Past Family Social History Past Medical History Lymphedema Diabetes Neuropathy A. fib Dyslipidemia Anemia Hypertension Past Surgical History Hernia repair Right leg debridement 5 Reported Medications Reported Meds & Active Scripts Active Methadone (Methadone HCl) 5 Mg Tab 5 Mg PO TID Pantoprazole (Pantoprazole Sodium) 40 Mg Tab 40 Mg PO DAILY Ferrous Sulfate 325 Mg Tab 325 Mg PO BID Reported Coumadin (Warfarin) 7.5 Mg Tab 7.5 Mg PO SUTUWEFRSA Take 1 tablet (7.5mg) on Saturday,Saturday,Saturday,Saturday and Saturday Coumadin (Warfarin) 10 Mg Tab 10 Mg PO MOTH Take 1 tablet (10mg) on Saturday and Zocor (Simvastatin) 40 Mg Tab 40 Mg PO HS Lisinopril 20 Mg Tab 20 Mg PO DAILY Gabapentin 600 Mg Tab 600 Mg PO TID Allergies: Coded Allergies: *MDRO Multi-Drug Resistant Organism (Verified Adverse Reaction, Unknown, ) MRSA (leg wound) - 06/2015, 05/28/16; MRSA (foot) - 08/2015,10/2015; MRSA (blood)-05/28/16 Tetracycline (Verified Adverse Reaction, Unknown, 06/26/16) THRUSH Active Ordered Medications Current Medications Medications (Trade) Dose Ordered Sig/Ina Route Start Time Stop Time Status Last Admin (NS Flush) 2 ml UNSCH PRN FLUSH 06/26/16 22:15 (NS Flush) 2 ml BID FLUSH 06/27/16 09:00 (Heparin Inj) 5,000 units Q8H SQ 06/27/16 09:00 (Narcan Inj) 0.4 mg UNSCH PRN IV 06/26/16 22:15 (D50w (Vial) Inj) 25 ml UNSCH PRN IV PUSH 06/26/16 22:15 (Glucagon Inj) 1 mg UNSCH PRN OTHER 06/26/16 22:15 Family History Patient is the only child. Mom had DM, and PVD. Social History Tobacco use: Denies Alcohol use: Denies Illicit drug use: Denies Patient lives alone and is wheel chair bound Physical Exam Vital Signs Vital Signs Date Time Temp Pulse Resp B/P Pulse Ox O2 Delivery O2 Flow Rate FiO2 06/26/16 19:44 86 18 124/68 95 Room Air 06/26/16 16:54 97.7 77 16 118/56 95 Physical Exam GENERAL: This is a well-nourished, obese patient, in no apparent distress. SKIN: No rashes, ecchymoses or lesions. Cool and moist. HEAD: Atraumatic. Normocephalic. No temporal or scalp tenderness. EYES: Pupils equal round and reactive. Extraocular motions intact. ENT: Nose without bleeding, purulent drainage or septal hematoma. Airway patent. NECK: Trachea midline. No JVD or lymphadenopathy. Supple, nontender, no meningeal signs. CARDIOVASCULAR: Regular rate and rhythm without murmurs, gallops, or rubs. RESPIRATORY: Clear to auscultation. Breath sounds equal bilaterally. No wheezes , rales, or rhonchi. GASTROINTESTINAL: Abdomen soft, non-tender, nondistended. No hepato-splenomegaly , or palpable masses. No guarding. MUSCULOSKELETAL: Bilateral lower Extremities edematous and weeping. No joint tenderness, effusion, or edema noted. No calf tenderness. NEUROLOGICAL: Awake and alert. Motor and sensory grossly within normal limits. Normal speech. Assessment and Plan Problem List: (1) Self-care deficit in patient living alone ICD Code: R46.89 Status: Acute (2) Type 2 diabetes mellitus with peripheral neuropathy ICD Code: E11.43 Status: Chronic (3) Venous stasis ulcers of both lower extremities ICD Code: I83.019 Status: Chronic (4) Atrial fibrillation, controlled ICD Code: I48.91 Status: Chronic Assessment and Plan 70-year-old male with a history of lymphedema, diabetes, neuropathy, A. fib, dyslipidemia, anemia and hypertension presented with: Self-care deficit Consult case management for placement Type 2 diabetes, chronic Accu-Cheks Diabetic diet Venous stasis ulcers of both lower extremities Consult wound care for recommendations A. fib, chronic Labs: INR 2.2 -Continue Coumadin -Monitor telemetry Hypertension, chronic -Restart home medications lisinopril -Monitor vitals DVT prophylaxis: Coumadin Written by Eloise TEMPLETON, acting as scribe for Dr. Stanley on 06/27/16 at 0150. The documentation accurately reflects the work performed [id number] and decisions made by me and the physician Dr Stanley on 06/27/16. The documentation accurately reflects the work performed [id number] by me on at 0150 Discussed Condition With Patient and ED physician Eloise Turner Jun 27, 2016 00:45 Vance Stanley MD Jun 28, 2016 08:22
[2016-06-27 01:00] VITALS: BP 139/68; PULSE 91; RESP 18; TEMP 97.9; O2SAT 96
[2016-06-27 03:05] VITALS: BP 135/67; PULSE 67; RESP 18; TEMP 98; O2SAT 96
[2016-06-27 03:21] VITALS: BP 139/77; PULSE 107; RESP 18; TEMP 98.3; O2SAT 100
[2016-06-27 05:35] LABS: AUTOMATED NEUTROPHIL # 4.3 TH/MM3 (1.8-7.7); BASOPHIL # 0.1 TH/MM3 (0-0.2); BASOPHIL % 0.7 % (0.0-2.0); EOSINOPHIL # 0.4 TH/MM3 (0-0.4); HEMATOCRIT 25.6 % (39.0-51.0); HEMO FLAGS DIFF FINAL; LYMPHOCYTE # 2.1 TH/MM3 (1.0-4.8); MEAN CELL VOLUME 81.1 FL (80.0-100.0); MEAN CORPUSCULAR HEMOGLOBIN 26.6 PG (27.0-34.0); MEAN CORPUSCULAR HGB CONC 32.9 % (32.0-36.0); MONO % 11.5 % (0.0-8.0); NEUT % 55.8 % (16.0-70.0); PLATELET COUNT 196 TH/MM3 (150-450); RED BLOOD COUNT 3.16 MIL/MM3 (4.50-5.90); RED CELL DISTRIBUTION WIDTH 19.6 % (11.6-17.2); WHITE BLOOD COUNT 7.7 TH/MM3 (4.0-11.0)
[2016-06-27] MEDS: INSULIN ASPART SUPPLEMENTAL SCALE SQ SCH ×3 (05:38→17:43)
[2016-06-27 05:48] LABS: INTERNATIONAL NORMALIZED RATIO 2.2 RATIO; PROTHROMBIN TIME - PATIENT 25.1 SEC (9.8-11.6)
[2016-06-27 05:55] LABS: BICARBONATE 31.2 MEQ/L (21.0-32.0); POTASSIUM 3.7 MEQ/L (3.5-5.1)
[2016-06-27 07:13] VITALS: BP 143/65; PULSE 70; RESP 20; TEMP 97.8; O2SAT 96
--- NOTE | 2016-06-27 08:21 | HHI.PR ---
Subjective Remarks Follow-up for failure to thrive. The patient states she is discharged from rehabilitation yesterday. He states that he is mostly wheelchair bound, but he was able to ambulate about 25 feet with a walker at rehabilitation. However he states that he wasn't trying to walk up stairs. He has several stairs that he needs to walk up to get into his trailer. He states that even with assistance yesterday, he was unable to get into his house, and thus came to the emergency room. He states that he had been having diarrhea on vancomycin at rehabilitation, however has had 2 solid bowel movements overnight. He states that he cut his left wrist on the radial trending into his trailer. No acute medical complaints at this time. Objective Vitals Vital Signs Date Time Temp Pulse Resp B/P Pulse Ox O2 Delivery O2 Flow Rate FiO2 06/27/16 07:13 97.8 70 20 143/65 96 06/27/16 03:21 98.3 107 18 139/77 100 06/27/16 03:05 98.0 67 18 135/67 96 06/27/16 01:00 97.9 91 18 139/68 96 06/26/16 19:44 86 18 124/68 95 Room Air 06/26/16 16:54 97.7 77 16 118/56 95 Result Diagram: 06/27/16 0400 06/27/16 0455 Objective Remarks GENERAL: Well-developed well-nourished obese. In no acute distress. SKIN: Warm and dry. Left wrist with dressing CDI. Bilateral ankles with dressing in place, CDI. HEENT: Normocephalic. Pupils equal and round. Mucous membranes pink and moist. CARDIOVASCULAR: Regular rate and rhythm. No murmur appreciated. RESPIRATORY: No accessory muscle use. Clear to auscultation. Breath sounds equal bilaterally. GASTROINTESTINAL: Abdomen soft, generalized TTP, nondistended. Bowel sounds x4. MUSCULOSKELETAL: No obvious deformities. No clubbing or cyanosis. Large nonpitting lower extremity edema. Lower extremities with diffuse mild TTP. NEUROLOGICAL: Awake and alert. No focal neurological deficits. Moves upper and lower extremities spontaneously. Normal speech. PSYCHIATRIC: Appropriate mood and affect; insight and judgment normal. A/P Problem List: (1) Self-care deficit in patient living alone ICD Code: R46.89 Status: Acute (2) Type 2 diabetes mellitus with peripheral neuropathy ICD Code: E11.43 Status: Chronic (3) Venous stasis ulcers of both lower extremities ICD Code: I83.019 Status: Chronic (4) Atrial fibrillation, controlled ICD Code: I48.91 Status: Chronic Assessment and Plan 70-year-old male with a history of lymphedema, diabetes, neuropathy, A. fib, dyslipidemia, anemia and hypertension presented with: Self-care deficit PT eval Case management consult for assistance with discharge disposition Type 2 diabetes, chronic Accu-Cheks Diabetic diet Venous stasis ulcers of both lower extremities Consult wound care for recommendations A. fib, chronic Labs: INR 2.2 -Continue Coumadin Hypertension, chronic -Continue home lisinopril -Monitor vitals Loose stools, currently resolved C. difficile 2/2 negative Lactinex Chronic pain: Confirmed methadone dose at the [facility], resume. DVT prophylaxis: Coumadin Discharge Planning Discharge planning once a safe discharge planning can be arranged. Discussed with case management. Anton Quesada Jun 27, 2016 08:21
[2016-06-27] MEDS ORDERED: SODIUM CHLORIDE 0.9% FLUSH 5 ML FLUSH FLUSH SCH (09:00)
[2016-06-27] MEDS ORDERED: LISINOPRIL 20 MG TAB PO SCH (09:00)
[2016-06-27] MEDS ORDERED: FERROUS SULFATE 325 MG (65 MG ELEMENTAL IRON) TAB PO SCH (09:00)
[2016-06-27] MEDS ORDERED: LACTOBACILLUS ACIDOPHILUS TAB PO SCH (09:00)
[2016-06-27] MEDS ORDERED: PANTOPRAZOLE SOD 40 MG DELAYED RELEASE TAB PO SCH (09:00)
[2016-06-27] MEDS ORDERED: HEPARIN SODIUM - SQ 10,000 UNITS/ML VIAL SQ SCH (09:00)
[2016-06-27] MEDS: GABAPENTIN 300 MG CAP PO SCH ×3 (11:12→17:41)
[2016-06-27 12:05] VITALS: BP 151/81; PULSE 84; RESP 20; TEMP 96.9; O2SAT 95
[2016-06-27 15:30] VITALS: BP 124/78; PULSE 84; RESP 20; TEMP 95.3; O2SAT 95
[2016-06-27] MEDS ORDERED: WARFARIN SOD 7.5 MG TAB PO SCH (16:00)
--- NOTE | 2016-06-27 16:08 | HHI.FF ---
Face to Face Verification Diagnosis: (1) Venous stasis ulcers of both lower extremities (2) Self-care deficit in patient living alone (3) Type 2 diabetes mellitus with peripheral neuropathy (4) Lymphedema of lower extremity (5) Wheelchair bound Physical Therapy Order: Evaluate and Treat, Improve ambulation, Strength and gait training Home Health Nursing Order: Medical education Signs/symptoms of disease process Diabetic education Medication education-adverse effect Wound care and dressing changes Nursing assessment with vital signs Instructions: Cleanse wounds with normal saline. Apply nonadhesive AG every other day. Cover with gauze every other day. I have seen patient Allen Fraser on 06/27/16. My clinical findings support the need for the requested home health care services because: Ltd mobility - disease progression Deconditioned w/ increased weakness Limited ability to care for self High risk of falls I certify that my clinical findings support that this patient is homebound because: Unsteady gait/balance Need for psychosocial assistance [id number] bed/chair Anton Quesada Jun 27, 2016 16:08
[2016-06-27] MEDS ORDERED: METHADONE HCL 10 MG TAB PO SCH (18:00)
[2016-06-27] MEDS ORDERED: PILL SPLITTER OTHER PRN (18:00)
[2016-06-27] MEDS ORDERED: PRAVASTATIN SOD 80 MG TAB PO SCH (21:00)
[2016-06-28] MEDS ORDERED: WARFARIN SOD 10 MG TAB PO SCH (16:00)
== END 2016-06-27 21:45 | disposition home or self-care (01) ==
LOC: NEPE 16:50 → NEDA 21:09 → NEPHCDU 06-27 00:26
PROVIDERS: ADMIT Hospitalist; ATTEND Hospitalist
DX: R62.7 Adult failure to thrive (principal); Z79.01 Long term (current) use of anticoagulants; M19.90 Unspecified osteoarthritis, unspecified site; I48.2 Chronic atrial fibrillation; E78.00 Pure hypercholesterolemia, unspecified; E11.42 Type 2 diabetes mellitus with diabetic polyneuropathy; K44.9 Diaphragmatic hernia without obstruction or gangrene; I12.9 Hypertensive chronic kidney disease with stage 1 through stage 4 chronic kidney disease, or unspecified chronic kidney disease; J01.90 Acute sinusitis, unspecified; Z79.899 Other long term (current) drug therapy; E66.9 Obesity, unspecified; Z99.3 Dependence on wheelchair; L97.909 Non-pressure chronic ulcer of unspecified part of unspecified lower leg with unspecified severity; I89.0 Lymphedema, not elsewhere classified; N17.9 Acute kidney failure, unspecified; N18.9 Chronic kidney disease, unspecified; E11.22 Type 2 diabetes mellitus with diabetic chronic kidney disease; E78.5 Hyperlipidemia, unspecified; D64.9 Anemia, unspecified; R19.7 Diarrhea, unspecified; R46.89 Other symptoms and signs involving appearance and behavior; I83.019 Varicose veins of right lower extremity with ulcer of unspecified site
CPT/HCPCS: 80048; 82948; 85025; 85610; 97163; 99284; G0378; G8987; G8988; J1815

== ENCOUNTER 2016-07-01 13:25 | Emergency (ER) | payer OTHER ==
[~2016-07-01] VITALS: Ht 213.4 cm; Wt 153.0 kg
[2016-07-01 13:34] VITALS: BP 133/62; PULSE 82; RESP 23; TEMP 97.8; O2SAT 94
--- NOTE | 2016-07-01 14:14 | PD ---
HPI Chief Complaint: Syncope/Near-Syncope Time Seen by Provider: 13:33 Travel History International Travel<30 days: No Contact w/Intl Traveler<30days: No Traveled to known affect area: No History of Present Illness HPI This patient was discharged from the hospital yesterday. He was admitted solely because of difficulty caring for himself and he was admitted to try to get placement. However the patient had of refusing half-way placement and went home to live with a friend. He now lives at that friend's house. He went to the [employer] to pick something up and apparently had an episode where he slumped over in his wheelchair. Bystander called paramedics and brought him here. Patient is now asymptomatic with normal vital signs and a man 's to go home. He does not want any testing or anything else done. He says he would continue to refuse half-way placement and he says he does fine living with his friend. He says he did not want to come here and just wants to go home. Symptoms severity is mild. PFSH Past Medical History Hx Anticoagulant Therapy: Yes (COUMADIN) Arthritis: Yes Asthma: No Atrial Fibrillation: Yes Blood Disorders: No Heart Rhythm Problems: Yes (A-FIB) Cancer: No Cardiovascular Problems: Yes (HTN) High Cholesterol: Yes Chest Pain: No Congestive Heart Failure: No COPD: No Diabetes: Yes Patient Takes Glucophage: No Diminished Hearing: Yes (LEFT EAR DIMINISHED) Endocrine: Yes Gastrointestinal Disorders: Yes Genitourinary: No Hiatal Hernia: Yes Hypertension: Yes Immune Disorder: No Implanted Vascular Access Dvce: No Musculoskeletal: Yes Neurologic: Yes Psychiatric: No Reproductive: No Respiratory: Yes (ACUTE SINUSITIS) Sleep Apnea: No Influenza Vaccination: Yes Past Surgical History Abdominal Surgery: Yes (7 HERNIA REPAIR) Insulin Pump: Yes (LANTUS, 50 UNITS NIGHT TIME) Other Surgery: Yes (R LEG DEBRIEDMENT X5) Social History Alcohol Use: No Tobacco Use: No Substance Use: No Allergies-Medications (Allergen,Severity, Reaction): Coded Allergies: *MDRO Multi-Drug Resistant Organism (Verified Adverse Reaction, Unknown, ) MRSA (leg wound) - 06/2015, 05/28/16; MRSA (foot) - 08/2015,10/2015; MRSA (blood)-05/28/16 Tetracycline (Verified Adverse Reaction, Unknown, 07/01/16) THRUSH Reported Meds & Prescriptions Reported Meds & Active Scripts Active Methadone (Methadone HCl) 5 Mg Tab 5 Mg PO TID Pantoprazole (Pantoprazole Sodium) 40 Mg Tab 40 Mg PO DAILY Ferrous Sulfate 325 Mg Tab 325 Mg PO BID Reported Coumadin (Warfarin) 7.5 Mg Tab 7.5 Mg PO SUTUWEFRSA Take 1 tablet (7.5mg) on Saturday,Saturday,Saturday,Saturday and Saturday Coumadin (Warfarin) 10 Mg Tab 10 Mg PO MOTH Take 1 tablet (10mg) on Saturday and Zocor (Simvastatin) 40 Mg Tab 40 Mg PO HS Lisinopril 20 Mg Tab 20 Mg PO DAILY Gabapentin 600 Mg Tab 600 Mg PO TID Review of Systems General / Constitutional: No: Fever HENT: No: Headaches Cardiovascular: No: Chest Pain or Discomfort Respiratory: No: Cough Gastrointestinal: No: Vomiting Physical Exam Narrative CARDIOVASCULAR: Regular rate and rhythm without murmur. Extremities showed no edema or varicosities. GASTROINTESTINAL: Abdomen soft, non-tender, nondistended. Positive bowel sounds. No hepato-splenomegaly, or palpable masses. No guarding. Patient has Shawn wrap things over his legs up to the knees and he refuses to have me remove them and examine his legs. He says he has home health that changes the dressings Data Data Last Documented VS Vital Signs Date Time Temp Pulse Resp B/P Pulse Ox O2 Delivery O2 Flow Rate FiO2 07/01/16 13:34 97.8 82 23 133/62 94 MDM Medical Decision Making Medical Screen Exam Complete: Yes Emergency Medical Condition: Yes Medical Record Reviewed: Yes Differential Diagnosis Presyncopal episode, cardiac arrhythmia, dehydration Narrative Course I have reviewed the patient's electronic medical record. Reviewed his admission history and physical from a couple days ago As noted, patient refuses any testing or treatment. He insists on going home. He is alert and oriented. Refuses placement Insists that he does fine at home Diagnosis Primary Impression: Episode of syncope Qualified Code: R55 - Syncope, unspecified syncope type Additional Impressions: Venous stasis ulcers of both lower extremities Wheelchair bound Additional Instructions: The patient was advised to follow up with their physician and return if they worsen. Med/Other Pt SpecificInfo: Other Disposition: 01 DISCHARGE HOME Condition: Stable Trenton Lynn MD Jul 01, 2016 14:14
== END 2016-07-01 14:39 | disposition home or self-care (01) ==
LOC: NEPE 13:25
DX: R55 Syncope and collapse (principal); I83.008 Varicose veins of unspecified lower extremity with ulcer other part of lower leg; I10 Essential (primary) hypertension; E11.9 Type 2 diabetes mellitus without complications; E78.00 Pure hypercholesterolemia, unspecified; I48.91 Unspecified atrial fibrillation; Z79.01 Long term (current) use of anticoagulants; H91.92 Unspecified hearing loss, left ear
CPT/HCPCS: 99283